=== PATIENT | male | born 1950 | race Caucasian/White ===

== ENCOUNTER 2019-05-09 08:49 | Outpatient (CLI) | payer OTHER, SELFPAY ==
[2019-05-09 09:23] LABS: Basophils # 0.1 10^3/uL (0.0-0.1); Basophils % 0.5 %; Eosinophils # 0.3 10^3/uL (0.0-0.8); Hematocrit 47.7 % (42.0-52.0); Hemoglobin 15.5 g/dL (11.7-16.6); Lymphocytes # 1.4 10^3/uL (0.8-4.8); Lymphocytes % 13.8 %; Mean Corpuscular HGB Conc 32.5 g/dL (30.0-36.0); Mean Corpuscular Hemoglobin 30.5 pg (28.0-34.0); Mean Corpuscular Volume 93.7 fL (80-94); Mean Platelet Volume 9.3 fL (7.4-10.4); Monocytes # 0.7 10^3/uL (0.2-0.9); Monocytes % 6.7 %; Neutrophils % 70.4 %; Nucleated Red Blood Cells % 0 %; Platelet Count 897 10^3/cmm (130-400); Red Blood Count 5.09 10^6/uL (4.1-5.3); Red Cell Distribution Width 14.6 % (12.1-15.1); White Blood Count 9.9 10^3/uL (4.0-10.0)
[2019-05-09 09:56] LABS: Slide Review Slide Review Perform
[2019-05-09 09:58] LABS: Absolute Eosinophils 0.2 10^3/cmm (0.0-0.7); Absolute Segmented Neutrophil 5.8 10/cmm (1.6-7.1); Band Neutrophils Absolute 1.5 10^3/cmm (0.0-1.2); Eosinophils 3 %; Giant Platelets Trace; Lymphocytes 11 %; Monocytes Absolute 0.9 10^3/cmm (0.1-0.6); Platelet Estimate Increased (Normal); Segmented Neutrophils 59 %; Total Cells Counted 100 (0-100)
[2019-05-09 14:01] LABS: Ferritin 181 ng/mL (30-400); Iron 112 ug/dL (59-158); Percent Saturation 38.7 % (20-50); Total Iron Binding Capacity 289 mg/dL; Unsaturated Iron Binding 177 ug/dL (112-347)
[2019-05-09 14:27] LABS: Erythrocyte Sedimentation Rate 12 mm/hr (0-10)
[2019-05-09 14:56] LABS: LAB Peripheral Smear Sent for Review
[2019-05-17 19:02] LABS: JAK2 V617 Mutation DETECTED (NOT DETECTED)
== END 2019-05-09 08:50 | disposition home or self-care (01) ==
LOC: ONCMED 09:02
PROVIDERS: Family Provider Family Medicine; PCP Family Medicine; Referring Provider Family Medicine; Visit Provider Internal Medicine Hematology & Oncology
DX: D47.3 Essential (hemorrhagic) thrombocythemia (principal); G47.33 Obstructive sleep apnea (adult) (pediatric); E78.5 Hyperlipidemia, unspecified; G89.29 Other chronic pain; M54.2 Cervicalgia; M54.9 Dorsalgia, unspecified; I71.4 Abdominal aortic aneurysm, without rupture; J43.9 Emphysema, unspecified; Z79.51 Long term (current) use of inhaled steroids
CPT/HCPCS: 36415; 80500; 82728; 83540; 83550; 85007; 85025; 85651; 99204

== ENCOUNTER 2019-05-23 08:13 | Outpatient (CLI) | payer OTHER, SELFPAY ==
--- NOTE | 2019-05-23 08:23 | US_ITS ---
WS: [id number] Abdomen ultrasound, 05/23/2019 Clinical Data: THROMBOCYTOPENIA Comparison: None. Findings: The pancreas shows no cyst, pseudocyst or evidence of pancreatitis. The liver shows no cysts, masses or dilated intrahepatic ducts. The liver is enlarged measuring 19.61 cm. The gallbladder has no stones or sludge. The wall measures 0.2 mm with no pericholecystic fluid. The common bile duct is 0.4 mm and no intraductal abnormalities are noted. The right kidney is 4.18 x 4.99 x 9.6 cm. No cysts, masses or hydronephrosis is seen. The left kidney is 14.20 x 4.93 x 10.42 cm. No cysts, masses or hydronephrosis is seen. The abdominal aorta is not dilated and the inferior vena cava has normal flow. No vascular abnormalit ies are seen. The spleen measures 4.22 x 5.18 x 11.81 cm and there are no intrasplenic masses are capsular abnormal ities. US/US abdomen complete* [id number] Impression: Mild hepatomegaly.
[2019-05-23 09:29] LABS: Basophils % 0.5 %; Eosinophils # 0.3 10^3/uL (0.0-0.8); Eosinophils % 4.1 %; Hematocrit 46.6 % (42.0-52.0); Hemoglobin 15.2 g/dL (11.7-16.6); Lymphocytes # 1.3 10^3/uL (0.8-4.8); Lymphocytes % 17.2 %; Mean Corpuscular HGB Conc 32.6 g/dL (30.0-36.0); Mean Corpuscular Hemoglobin 30.5 pg (28.0-34.0); Mean Corpuscular Volume 93.6 fL (80-94); Mean Platelet Volume 9.4 fL (7.4-10.4); Monocytes # 0.5 10^3/uL (0.2-0.9); Monocytes % 6.6 %; Neutrophils % 66.5 %; Nucleated Red Blood Cells % 0 %; Platelet Count 934 10^3/cmm (130-400); Red Blood Count 4.98 10^6/uL (4.1-5.3); Red Cell Distribution Width 14.6 % (12.1-15.1); White Blood Count 7.5 10^3/uL (4.0-10.0)
[2019-05-23 09:58] LABS: Alanine Aminotransferase 20 U/L (0-41); Alkaline Phosphatase 126 IU/L (40-130); Anion Gap 14.1 (5-19); Aspartate Amino Transferase 24 U/L (0-40); Blood Urea Nitrogen 13 mg/dL (8-23); Carbon Dioxide 29 mmol/L (22-29); Chloride 101 mmol/L (98-107); Globulin 3.9 g/dL (1.3-4.6); Glomerular Filtration Rate 73.9 mL/min (90-130); Glucose 92 mg/dL (65-115); Potassium 4.1 mmol/L (3.5-5.1); Sodium 140 mmol/L (136-145); Total Bilirubin 0.7 mg/dL (0.15-1.2); Total Protein 7.9 g/dL (6.6-8.7)
== END 2019-05-23 08:14 | disposition home or self-care (01) ==
LOC: ONCMED 08:18
PROVIDERS: Family Provider Family Medicine; PCP Family Medicine; Visit Provider Internal Medicine Hematology & Oncology
DX: D69.6 Thrombocytopenia, unspecified (principal); R16.0 Hepatomegaly, not elsewhere classified
CPT/HCPCS: 36415; 76700; 80053; 85025

== ENCOUNTER 2019-05-25 14:52 | Outpatient (CLI) | payer OTHER, SELFPAY ==
--- NOTE | 2019-05-30 17:09 | ONC FU_ITS ---
Dr. Snow follow up note Patient: Brennon Melendez Unit #: [id number]: [id number] Dicatated By: Wong Snow M.D.Date of Visit:May 25, 2019 Onc Med Follow-up/Prog Note History of Present Illness: Mr. Brennon Melendez, is a 68-year-old gentleman with long-standing history of thrombocytosis, as per patient initially he was told about high. Count in July 2018 but his platelet count has been high for a while prior to that. But recently his physician got concerned and other than that no history of headaches or blurred vision or double vision no history of chest pain or shortness of breath no history of night sweats fever chills no history of peripheral lymphadenopathy. No history of abdominal fullness. No history of abnormal bleeding. No history of smoking but history of COPD, sleep apnea, hyperlipidemia, chronic neck and back pain.no history of DVTs or pulmonary embolism or arterial thrombosis. His labs checked on 04/19/2019 showed white blood count 11.9, hemoglobin 15.4 crit 46.6 platelets 865,[address] scan of chest done on 04/27/2019 showed few very small densities in both lungs, atherosclerotic changes involving thoracic aorta with mild aneurysm of ascending aorta which has diameter 4.3 cm. Or myelomatous disease. A few mediastinal lymph nodes contain calcification. Chest x-ray done on 04/06/2019 showed hyperinflated lungs with emphysema. Ultrasound abdomen done on 05/23/2019 showedSpleen size 4.2 x 5.1 x 11.8 cm, liver is enlarged measuring 19.6 cm Clau 2 mutation, detected Started on hydroxyurea 500 mg by mouth daily and aspirin 81 mg by mouth daily on 05/23/2019, for essential thrombocytosis Came for follow-up, denies any specific complaints, no nausea vomiting no fever no chills no headaches no blurred vision or double vision. No abdominal fullness. Medications: Albuterol Sulfate 1 ((2.5 mg/3ml) 0.083%) Nebulization solution Inhalation daily, Albuterol Sulfate 1 Puff(s) (of 108 (90 base) mcg/act) Aerosol Powder, Breath Activated Inhalation daily, Aspirin 1 Tablet (of 81 mg) Oral daily, CBD 1 Capsule (of 5 mg) Oral daily, Cholecalciferol 1 Tablet (of 25 mcg ) Oral daily, Excedrin Extra Strength 2 Tablet (of 500 mg) Oral PRN, guaiFENesin 10 mL (of 100 mg/5mL) Syrup Oral PRN, Metamucil 1 Capsule Oral daily, QUEtiapine Fumarate 1 Tablet (of 100 mg) Oral daily, Symbicort 1 Puff(s) (of 80-4.5 mcg/act) Aerosol Inhalation daily Allergies: No Known Allergies. Review of Systems: Constitutional - Appetite is good and weight is stable. No fever, chills, hot flashes, or night sweats. Energy level is poor, ENMT - No sinus congestion/drainage. No mouth sores. No sore throat or difficulty swallowing, Hematologic/Lymphatic - No abnormal bruising or bleeding, Respiratory - No shortness of breath. No cough. No pleuritic pain or hemoptysis, Cardiovascular - No angina pain. No palpitations, Gastrointestinal - No nausea or vomiting. No heartburn or acid reflux. No diarrhea or constipation. No blood in the stool or black stools, Genitourinary (M) - No dysuria or hematuria. No urinary frequency. No urgency or incontinence, Musculoskeletal - No joint or bone pain, Neurologic - No headache or dizziness. No numbness/paresthesias or other focal neurologic symptoms, Psychiatric - No anxiety or depression. No insomnia. Vital Signs: Performed on May 25, 2019 15:37 Height - 71.00 in Weight - 192.0 lbs (HIGH) BSA - 2.07 sq.m BMI - 26.78 Temperature - 97.9 F (LOW) Pulse - 67 /min Respiration - 18 /min BP - 111/69 mm(hg) O2 Sat - 98 % Pain - 0 Performance Status: 0 - Fully active, able to carry on all predisease activities without restrictions. (ECOG) Physical Examination: ENMT - No oral exudates, ulcers, masses, thrush or mucositis. Oropharynx clear. Tongue normal, Respiratory - Lungs are clear to auscultation without rhonchi or wheezing, Cardiovascular - Regular rate and rhythm of heart, Abdomen - Non-tender, non-distended, . Good bowel sounds. No guarding or rebound tenderness. No pulsatile masses, Extremities - no edema. Lab/Imaging: Test performed on May 23, 2019 09:10 Sodium 140 mmol/L Potassium 4.1 mmol/L Chloride 101 mmol/L CO2 29 mmol/L Anion Gap 14.1 BUN 13 mg/dL Creatinine 1.0 mg/dL Cr Clearance (Est) 84.0500 mL/min eGFR 73.9 mL/min Glucose 92 mg/dL Calcium 10.0 mg/dL Protein, Total 7.9 g/dL Albumin 4.0 g/dL Globulin 3.9 g/dL Bilirubin, Total 0.7 mg/dL ALT (SGPT) 20 U/L AST (SGOT) 24 U/L Alkaline Phosphatase 126 IU/L WBC 7.5 10 3/uL RBC 4.98 10 6/uL HGB 15.2 g/dL HCT 46.6 % MCV 93.6 fL MCH 30.5 pg MCHC 32.6 g/dL RDW 14.6 % Platelet Count 934 10 3/cmm MPV 9.4 fL Neutrophils 5.0 10 3/uL Lymphocytes 1.3 10 3/uL Monocytes 0.5 10 3/uL Eosinophils 0.3 10 3/uL Basophils 0.0 10 3/uL Neutrophil % 66.5 % Lymphocyte % 17.2 % Monocyte % 6.6 % Eosinophil % 4.1 % Basophils % 0.5 % Test performed on May 09, 2019 09:15 Ferritin 181 ng/mL ESR (Sed Rate) 12 mm/hr Manual Bands % 15.0 % Manual Lymphs % 11 % Manual Monos % 9.0 % Metamyelocytes % 1.0 % Myelocytes % 2.0 % CBC Slide Review Slide Review Perform Manual Bands Abs 1.5 10 3/cmm Manual Monocytes Abs 0.9 10 3/cmm Manual Eosinophils Abs 0.2 10 3/cmm Impression: Essential thrombocytosis ,JAK2 mutation positive confirmed on 05/09/2019 Started on hydroxyurea/baby aspirin on 05/23/2019 COPD/emphysema, no history of smoking Ascending Aortic aneurysm. Plan: Discussed with patient regarding his labs white blood count 7.5 hemoglobin 15.2 crit 46.4 platelets 934,000 Clinically, patient is doing well with no signs symptom due to severe thrombocytosis. Now confirmed due to myeloproliferative disorder e.g. essential thrombocytosis with JAK2 mutation positive. At this point we will consider starting him on cytoreduction therapy with hydroxyurea 500 mg by mouth daily along with aspirin 81 mg by mouth daily patient was advised to maintain good hydration and then he will return to clinic in 1 week with CBC and based on that we will make adjustment in his hydroxyurea dose. And plan is to keep his platelet count between 100,000- 400,000 while maintaining white blood count and hemoglobin in in normal range. All the side effect possible benefits associated with hydroxyurea were discussed in detail further teaching will be done by chemotherapy nurse Signed By: Wong Snow M.D. <<Signature on File>>
== END 2019-05-25 14:53 | disposition home or self-care (01) ==
LOC: ONCMED 14:54
PROVIDERS: Family Provider Family Medicine; PCP Family Medicine; Visit Provider Internal Medicine Hematology & Oncology
DX: D47.3 Essential (hemorrhagic) thrombocythemia (principal); G47.33 Obstructive sleep apnea (adult) (pediatric); E78.5 Hyperlipidemia, unspecified; G89.29 Other chronic pain; M54.2 Cervicalgia; M54.9 Dorsalgia, unspecified; I71.4 Abdominal aortic aneurysm, without rupture; I25.10 Atherosclerotic heart disease of native coronary artery without angina pectoris; J43.9 Emphysema, unspecified; Z79.899 Other long term (current) drug therapy; Z79.51 Long term (current) use of inhaled steroids
CPT/HCPCS: 99214

== ENCOUNTER 2019-06-07 05:39 | Outpatient (RCR) | payer OTHER, SELFPAY ==
[2019-06-06 12:53] LABS: Basophils % 0.6 %; Eosinophils # 0.3 10^3/uL (0.0-0.8); Eosinophils % 4.4 %; Hemoglobin 14.9 g/dL (11.7-16.6); Lymphocytes # 1.6 10^3/uL (0.8-4.8); Mean Corpuscular HGB Conc 31.7 g/dL (30.0-36.0); Mean Corpuscular Hemoglobin 31.4 pg (28.0-34.0); Mean Corpuscular Volume 98.9 fL (80-94); Mean Platelet Volume 9.5 fL (7.4-10.4); Monocytes # 0.5 10^3/uL (0.2-0.9); Monocytes % 7.8 %; Neutrophils # 3.8 10^3/uL (1.8-7.7); Neutrophils % 57.9 %; Nucleated Red Blood Cells % 0 %; Platelet Count 901 10^3/cmm (130-400); Red Blood Count 4.75 10^6/uL (4.1-5.3); Red Cell Distribution Width 14.8 % (12.1-15.1); White Blood Count 6.6 10^3/uL (4.0-10.0)
[2019-06-06 13:05] LABS: Alanine Aminotransferase 40 U/L (0-41); Albumin Level 3.8 g/dL (3.5-5.2); Alkaline Phosphatase 137 IU/L (40-130); Anion Gap 14.3 (5-19); Aspartate Amino Transferase 38 U/L (0-40); Blood Urea Nitrogen 15 mg/dL (8-23); Calcium 9.5 mg/dL (8.5-10.5); Carbon Dioxide 28 mmol/L (22-29); Chloride 101 mmol/L (98-107); Globulin 3.9 g/dL (1.3-4.6); Glomerular Filtration Rate 73.9 mL/min (90-130); Glucose 80 mg/dL (65-115); Potassium 4.3 mmol/L (3.5-5.1); Sodium 139 mmol/L (136-145); Total Bilirubin 0.5 mg/dL (0.15-1.2); Total Protein 7.7 g/dL (6.6-8.7)
--- NOTE | 2019-06-07 09:05 | ONC FU_ITS ---
Dr. Snow follow up note Patient: Brennon Melendez Unit #: [id number]: [id number] Dicatated By: Wong Snow M.D.Date of Visit:Jun 07, 2019 Onc Med Follow-up/Prog Note History of Present Illness: Mr. Brennon Melendez, is a 68-year-old gentleman with long-standing history of thrombocytosis, as per patient initially he was told about high. Count in July 2018 but his platelet count has been high for a while prior to that. But recently his physician got concerned and other than that no history of headaches or blurred vision or double vision no history of chest pain or shortness of breath no history of night sweats fever chills no history of peripheral lymphadenopathy. No history of abdominal fullness. No history of abnormal bleeding. No history of smoking but history of COPD, sleep apnea, hyperlipidemia, chronic neck and back pain. His labs checked on 04/19/2019 showed white blood count 11.9, hemoglobin 15.4 crit 46.6 platelets 865,[address] scan of chest done on 04/27/2019 showed few very small densities in both lungs, atherosclerotic changes involving thoracic aorta with mild aneurysm of ascending aorta which has diameter 4.3 cm. Or myelomatous disease. A few mediastinal lymph nodes contain calcification. Chest x-ray done on 04/06/2019 showed hyperinflated lungs with emphysema. Ultrasound abdomen done on 05/23/2019 showedSpleen size 4.2 x 5.1 x 11.8 cm, liver is enlarged measuring 19.6 cm Clau 2 mutation, detected Started on hydroxyurea 500 mg by mouth daily and aspirin 81 mg by mouth daily on 05/23/2019, for essential thrombocytosis Came for follow-up, denies any specific complaints, no headaches no blurred vision or double vision, no nausea or vomiting, no abdominal fullness, tolerating hydroxyurea well. Medications: Albuterol Sulfate 1 ((2.5 mg/3ml) 0.083%) Nebulization solution Inhalation daily, Albuterol Sulfate 1 Puff(s) (of 108 (90 base) mcg/act) Aerosol Powder, Breath Activated Inhalation daily, Aspirin 1 Tablet (of 81 mg) Oral daily, CBD 1 Capsule (of 5 mg) Oral daily, Cholecalciferol 1 Tablet (of 25 mcg ) Oral daily, guaiFENesin 10 mL (of 100 mg/5mL) Syrup Oral PRN, Hydroxyurea 1 Capsule (of 500 mg) Oral daily, Metamucil 1 Capsule Oral daily, QUEtiapine Fumarate 1 Tablet (of 100 mg) Oral daily, Symbicort 1 Puff(s) (of 80-4.5 mcg/act) Aerosol Inhalation daily Allergies: No Known Allergies. Review of Systems: Constitutional - Appetite is good and weight is stable. No fever, chills, hot flashes, or night sweats. Energy level is poor, ENMT - No sinus congestion/drainage. No mouth sores. No sore throat or difficulty swallowing, Hematologic/Lymphatic - No abnormal bruising or bleeding, Respiratory - No shortness of breath. No cough. No pleuritic pain or hemoptysis, Cardiovascular - No angina pain. No palpitations, Gastrointestinal - No nausea or vomiting. No heartburn or acid reflux. No diarrhea or constipation. No blood in the stool or black stools, Genitourinary (M) - No dysuria or hematuria. No urinary frequency. No urgency or incontinence, Musculoskeletal - No joint or bone pain, Neurologic - No headache or dizziness. No numbness/paresthesias or other focal neurologic symptoms, Psychiatric - No anxiety or depression. No insomnia. Vital Signs: Performed on Jun 07, 2019 08:12 Height - 71.00 in Weight - 194.2 lbs (HIGH) BSA - 2.08 sq.m BMI - 27.09 Temperature - 97.4 F (LOW) Pulse - 63 /min Respiration - 18 /min BP - 117/72 mm(hg) O2 Sat - 98 % Pain - 0 Performance Status: 0 - Fully active, able to carry on all predisease activities without restrictions. (ECOG) Physical Examination: ENMT - No oral exudates, ulcers, masses, thrush or mucositis. Oropharynx clear. Tongue normal, Respiratory - Lungs are clear to auscultation without rhonchi or wheezing, Cardiovascular - Regular rate and rhythm of heart, Abdomen - Non-tender, non-distended, Good bowel sounds. No guarding or rebound tenderness. No pulsatile masses, Extremities - no edema. Lab/Imaging: Test performed on May 23, 2019 09:10 Sodium 140 mmol/L Potassium 4.1 mmol/L Chloride 101 mmol/L CO2 29 mmol/L Anion Gap 14.1 BUN 13 mg/dL Creatinine 1.0 mg/dL Cr Clearance (Est) 84.0500 mL/min eGFR 73.9 mL/min Glucose 92 mg/dL Calcium 10.0 mg/dL Protein, Total 7.9 g/dL Albumin 4.0 g/dL Globulin 3.9 g/dL Bilirubin, Total 0.7 mg/dL ALT (SGPT) 20 U/L AST (SGOT) 24 U/L Alkaline Phosphatase 126 IU/L WBC 7.5 10 3/uL RBC 4.98 10 6/uL HGB 15.2 g/dL HCT 46.6 % MCV 93.6 fL MCH 30.5 pg MCHC 32.6 g/dL RDW 14.6 % Platelet Count 934 10 3/cmm MPV 9.4 fL Neutrophils 5.0 10 3/uL Lymphocytes 1.3 10 3/uL Monocytes 0.5 10 3/uL Eosinophils 0.3 10 3/uL Basophils 0.0 10 3/uL Neutrophil % 66.5 % Lymphocyte % 17.2 % Monocyte % 6.6 % Eosinophil % 4.1 % Basophils % 0.5 % Test performed on May 09, 2019 09:15 Ferritin 181 ng/mL ESR (Sed Rate) 12 mm/hr Manual Bands % 15.0 % Manual Lymphs % 11 % Manual Monos % 9.0 % Metamyelocytes % 1.0 % Myelocytes % 2.0 % CBC Slide Review Slide Review Perform Manual Bands Abs 1.5 10 3/cmm Manual Monocytes Abs 0.9 10 3/cmm Manual Eosinophils Abs 0.2 10 3/cmm Impression: Essential thrombocytosis ,JAK2 mutation positive confirmed on 05/09/2019 Started on hydroxyurea/baby aspirin on 05/23/2019 COPD/emphysema, no history of smoking Ascending Aortic aneurysm. Plan: Discussed with patient regarding his labs white blood count 6.6 hemoglobin 14.9 crit 47 platelets 901,000 compared to 934,000 on 05/23/2019 Clinically, patient is doing well, tolerating daily hydroxyurea well, his follow-up CBC showed some improvement in his platelets count, at this point we'll increase his hydroxyurea dose to thousand milligrams on Wednesday, Wednesday and Wednesday and he will continue to 500 mg by mouth daily on remaining days of week and then he will return to clinic in 2 weeks with CBC. Signed By: Wong Snow M.D. <<Signature on File>>
== END 2019-06-10 23:59 | disposition home or self-care (01) ==
LOC: ONCMED 05:39
PROVIDERS: Family Provider Family Medicine; PCP Family Medicine; Visit Provider Internal Medicine Hematology & Oncology
DX: D47.3 Essential (hemorrhagic) thrombocythemia (principal); G47.33 Obstructive sleep apnea (adult) (pediatric); E78.5 Hyperlipidemia, unspecified; G89.29 Other chronic pain; M54.2 Cervicalgia; M54.9 Dorsalgia, unspecified; J43.9 Emphysema, unspecified; I71.4 Abdominal aortic aneurysm, without rupture; Z79.899 Other long term (current) drug therapy; Z79.82 Long term (current) use of aspirin; G31.83 Neurocognitive disorder with Lewy bodies; F02.80 Dementia in other diseases classified elsewhere, unspecified severity, without behavioral disturbance, psychotic disturbance, mood disturbance, and anxiety
CPT/HCPCS: 36415; 80053; 85025; 99213; 99214

== ENCOUNTER 2019-06-23 05:42 | Outpatient (RCR) | payer OTHER, SELFPAY ==
[2019-06-21 17:12] LABS: Basophils % 0.3 %; Eosinophils # 0.2 10^3/uL (0.0-0.8); Eosinophils % 3.2 %; Hematocrit 46.1 % (42.0-52.0); Hemoglobin 14.8 g/dL (11.7-16.6); Lymphocytes # 1.3 10^3/uL (0.8-4.8); Lymphocytes % 18.8 %; Mean Corpuscular HGB Conc 32.1 g/dL (30.0-36.0); Mean Corpuscular Volume 99.6 fL (80-94); Mean Platelet Volume 9.6 fL (7.4-10.4); Monocytes # 0.5 10^3/uL (0.2-0.9); Monocytes % 7.6 %; Neutrophils # 4.9 10^3/uL (1.8-7.7); Neutrophils % 68.5 %; Nucleated Red Blood Cells % 0 %; Platelet Count 813 10^3/cmm (130-400); Red Blood Count 4.63 10^6/uL (4.1-5.3); White Blood Count 7.1 10^3/uL (4.0-10.0)
--- NOTE | 2019-06-23 11:28 | ONC FU_ITS ---
Dr. Snow follow up note Patient: Brennon Melendez Unit #: [id number]: 1950 Dicatated By: Wong Snow M.D.Date of Visit:Jun 23, 2019 Onc Med Follow-up/Prog Note History of Present Illness: Mr. Brennon Melendez, is a 68-year-old gentleman with long-standing history of thrombocytosis, as per patient initially he was told about high. Count in July 2018 but his platelet count has been high for a while prior to that. But recently his physician got concerned and other than that no history of headaches or blurred vision or double vision no history of chest pain or shortness of breath no history of night sweats fever chills no history of peripheral lymphadenopathy. No history of abdominal fullness. No history of abnormal bleeding. No history of smoking but history of COPD, sleep apnea, hyperlipidemia, chronic neck and back pain. His labs checked on 04/19/2019 showed white blood count 11.9, hemoglobin 15.4 crit 46.6 platelets 865,[address] scan of chest done on 04/27/2019 showed few very small densities in both lungs, atherosclerotic changes involving thoracic aorta with mild aneurysm of ascending aorta which has diameter 4.3 cm. Or myelomatous disease. A few mediastinal lymph nodes contain calcification. Chest x-ray done on 04/06/2019 showed hyperinflated lungs with emphysema. Ultrasound abdomen done on 05/23/2019 showedSpleen size 4.2 x 5.1 x 11.8 cm, liver is enlarged measuring 19.6 cm Clau 2 mutation, detected Started on hydroxyurea 500 mg by mouth daily and aspirin 81 mg by mouth daily on 05/23/2019, for essential thrombocytosis and dose was increased to 1000 mg daily on 06/23/2019 Came for follow-up, denies any specific complaints, no nausea vomiting no fever no chills no diarrhea constipation, tolerating hydroxyurea well no headaches, Medications: Albuterol Sulfate 1 ((2.5 mg/3ml) 0.083%) Nebulization solution Inhalation daily, Albuterol Sulfate 1 Puff(s) (of 108 (90 base) mcg/act) Aerosol Powder, Breath Activated Inhalation daily, Aspirin 1 Tablet (of 81 mg) Oral daily, CBD 1 Capsule (of 5 mg) Oral daily, Cholecalciferol 1 Tablet (of 25 mcg ) Oral daily, guaiFENesin 10 mL (of 100 mg/5mL) Syrup Oral PRN, Hydroxyurea 1 Capsule (of 500 mg) Oral daily, Metamucil 1 Capsule Oral daily, QUEtiapine Fumarate 1 Tablet (of 100 mg) Oral daily, Symbicort 1 Puff(s) (of 80-4.5 mcg/act) Aerosol Inhalation daily Allergies: No Known Allergies. Review of Systems: Constitutional - Appetite is good and weight is stable. No fever, chills, hot flashes, or night sweats. Energy level is fair today, ENMT - No sinus congestion/drainage. No mouth sores. No sore throat or difficulty swallowing, Hematologic/Lymphatic - No abnormal bruising or bleeding, Respiratory - No shortness of breath. No cough. No pleuritic pain or hemoptysis, Cardiovascular - No angina pain. No palpitations, Gastrointestinal - No nausea or vomiting. No heartburn or acid reflux. No diarrhea or constipation. No blood in the stool or black stools, Genitourinary (M) - No dysuria or hematuria. No urinary frequency. No urgency or incontinence, Musculoskeletal - No joint or bone pain, Neurologic - No headache or dizziness. No numbness/paresthesias or other focal neurologic symptoms, Psychiatric - No anxiety or depression. No insomnia. Vital Signs: Performed on Jun 23, 2019 08:24 Height - 71.00 in Weight - 193.2 lbs (LOW) BSA - 2.08 sq.m BMI - 26.95 Temperature - 97.8 F (LOW) Pulse - 60 /min Respiration - 18 /min BP - 103/62 mm(hg) O2 Sat - 98 % Pain - 0 Performance Status: 0 - Fully active, able to carry on all predisease activities without restrictions. (ECOG) Physical Examination: ENMT - No oral exudates, ulcers, masses, thrush or mucositis. Oropharynx clear. Tongue normal, Respiratory - Lungs are clear to auscultation without rhonchi or wheezing, Cardiovascular - Regular rate and rhythm of heart, Abdomen - Non-tender, non-distended, Good bowel sounds. No guarding or rebound tenderness. No pulsatile masses, Extremities - no edema. Lab/Imaging: Test performed on Jun 06, 2019 07:05 Sodium 139 mmol/L Potassium 4.3 mmol/L Chloride 101 mmol/L CO2 28 mmol/L Anion Gap 14.3 BUN 15 mg/dL Creatinine 1.0 mg/dL Cr Clearance (Est) 85.64 mL/min eGFR 73.9 mL/min Glucose 80 mg/dL Calcium 9.5 mg/dL Protein, Total 7.7 g/dL Albumin 3.8 g/dL Globulin 3.9 g/dL Bilirubin, Total 0.5 mg/dL ALT (SGPT) 40 U/L AST (SGOT) 38 U/L Alkaline Phosphatase 137 IU/L WBC 6.6 10 3/uL RBC 4.75 10 6/uL HGB 14.9 g/dL HCT 47.0 % MCV 98.9 fL MCH 31.4 pg MCHC 31.7 g/dL RDW 14.8 % Platelet Count 901 10 3/cmm MPV 9.5 fL Neutrophils 3.8 10 3/uL Lymphocytes 1.6 10 3/uL Monocytes 0.5 10 3/uL Eosinophils 0.3 10 3/uL Basophils 0.0 10 3/uL Neutrophil % 57.9 % Lymphocyte % 25.0 % Monocyte % 7.8 % Eosinophil % 4.4 % Basophils % 0.6 % Test performed on May 09, 2019 09:15 Ferritin 181 ng/mL ESR (Sed Rate) 12 mm/hr Manual Bands % 15.0 % Manual Lymphs % 11 % Manual Monos % 9.0 % Metamyelocytes % 1.0 % Myelocytes % 2.0 % CBC Slide Review Slide Review Perform Manual Bands Abs 1.5 10 3/cmm Manual Monocytes Abs 0.9 10 3/cmm Manual Eosinophils Abs 0.2 10 3/cmm Impression: Essential thrombocytosis ,JAK2 mutation positive confirmed on 05/09/2019 Started on hydroxyurea/baby aspirin on 05/23/2019 COPD/emphysema, no history of smoking Ascending Aortic aneurysm. Plan: Discussed with patient regarding his labs white blood count 7.1 hemoglobin 14.8 crit 46.1 platelets 813,000 compared to 901,000 on 06/06/2019 Clinically, patient is doing well, tolerating hydroxyurea thousand milligrams alternating with 500 mg, well, follow-up lab showed further improvement in his thrombocytosis while maintaining his white blood count hemoglobin normal range At this point we will increase his hydroxyurea dose to thousand milligrams daily from thousand milligrams alternating with 500 mg. And return to clinic in 3 weeks with CBC and then based on that we'll make adjustment in his hydroxyurea dose if needed. Signed By: Wong Snow M.D. <<Signature on File>>
== END 2019-07-11 23:59 | disposition home or self-care (01) ==
LOC: ONCMED 05:42
PROVIDERS: Family Provider Family Medicine; PCP Family Medicine; Visit Provider Internal Medicine Hematology & Oncology
DX: D47.3 Essential (hemorrhagic) thrombocythemia (principal); G47.33 Obstructive sleep apnea (adult) (pediatric); E78.5 Hyperlipidemia, unspecified; G89.29 Other chronic pain; M54.2 Cervicalgia; M54.9 Dorsalgia, unspecified; I25.10 Atherosclerotic heart disease of native coronary artery without angina pectoris; I71.4 Abdominal aortic aneurysm, without rupture; J43.9 Emphysema, unspecified; R16.0 Hepatomegaly, not elsewhere classified; Z79.899 Other long term (current) drug therapy; Z79.82 Long term (current) use of aspirin; Z79.51 Long term (current) use of inhaled steroids
CPT/HCPCS: 85025; 99214

== ENCOUNTER 2019-07-31 06:44 | Outpatient (RCR) | payer OTHER, SELFPAY ==
[2019-07-14 12:16] LABS: Basophils % 0.4 %; Eosinophils # 0.1 10^3/uL (0.0-0.8); Eosinophils % 2.4 %; Lymphocytes # 1.1 10^3/uL (0.8-4.8); Lymphocytes % 20.9 %; Mean Corpuscular HGB Conc 31.7 g/dL (30.0-36.0); Mean Corpuscular Hemoglobin 31.8 pg (28.0-34.0); Mean Corpuscular Volume 100.2 fL (80-94); Mean Platelet Volume 9.7 fL (7.4-10.4); Monocytes # 0.5 10^3/uL (0.2-0.9); Monocytes % 9.8 %; Neutrophils # 3.3 10^3/uL (1.8-7.7); Neutrophils % 65.3 %; Nucleated Red Blood Cells % 0 %; Platelet Count 440 10^3/cmm (130-400); Red Blood Count 4.09 10^6/uL (4.1-5.3); Red Cell Distribution Width 17.9 % (12.1-15.1)
--- NOTE | 2019-07-17 14:27 | ONC FU_ITS ---
Dr. Snow follow up note Patient: Brennon Melendez Unit #: [id number]: 1950 Dicatated By: Wong Snow M.D.Date of Visit:Jul 17, 2019 Onc Med Follow-up/Prog Note History of Present Illness: Mr. Brennon Melendez, is a 68-year-old gentleman with long-standing history of thrombocytosis, as per patient initially he was told about high. Count in July 2018 but his platelet count has been high for a while prior to that. But recently his physician got concerned and other than that no history of headaches or blurred vision or double vision no history of chest pain or shortness of breath no history of night sweats fever chills no history of peripheral lymphadenopathy. No history of abdominal fullness. No history of abnormal bleeding. No history of smoking but history of COPD, sleep apnea, hyperlipidemia, chronic neck and back pain. His labs checked on 04/19/2019 showed white blood count 11.9, hemoglobin 15.4 crit 46.6 platelets 865,[address] scan of chest done on 04/27/2019 showed few very small densities in both lungs, atherosclerotic changes involving thoracic aorta with mild aneurysm of ascending aorta which has diameter 4.3 cm. Or myelomatous disease. A few mediastinal lymph nodes contain calcification. Chest x-ray done on 04/06/2019 showed hyperinflated lungs with emphysema. Ultrasound abdomen done on 05/23/2019 showedSpleen size 4.2 x 5.1 x 11.8 cm, liver is enlarged measuring 19.6 cm Clau 2 mutation, detected Started on hydroxyurea 500 mg by mouth daily and aspirin 81 mg by mouth daily on 05/23/2019, for essential thrombocytosis Evaluated via telemedicine, patient denies any fever chills denies any nausea or vomiting denies any headaches blurred vision or double vision denies any abdominal pain denies any jaundice tolerating hydroxyurea thousand milligrams by mouth daily well Medications: Albuterol Sulfate 1 ((2.5 mg/3ml) 0.083%) Nebulization solution Inhalation daily, Albuterol Sulfate 1 Puff(s) (of 108 (90 base) mcg/act) Aerosol Powder, Breath Activated Inhalation daily, Aspirin 1 Tablet (of 81 mg) Oral daily, CBD 1 Capsule (of 5 mg) Oral daily, Cholecalciferol 1 Tablet (of 25 mcg ) Oral daily, guaiFENesin 10 mL (of 100 mg/5mL) Syrup Oral PRN, Hydroxyurea 1 Capsule (of 500 mg) Oral daily, Metamucil 1 Capsule Oral daily, QUEtiapine Fumarate 1 Tablet (of 100 mg) Oral daily, Symbicort 1 Puff(s) (of 80-4.5 mcg/act) Aerosol Inhalation daily Allergies: No Known Allergies. Review of Systems: Constitutional - Appetite is good and weight is stable. No fever, chills, hot flashes. Positive for night sweats. Energy level is fair today, ENMT - Positive for sinus congestion, no drainage. No mouth sores. No sore throat or difficulty swallowing, Hematologic/Lymphatic - No abnormal bruising or bleeding, Respiratory - No shortness of breath. No cough. No pleuritic pain or hemoptysis, Cardiovascular - No angina pain. No palpitations, Gastrointestinal - No nausea or vomiting. No heartburn or acid reflux. Occasional diarrhea, no constipation. No blood in the stool or black stools, Genitourinary (M) - No dysuria or hematuria. No urinary frequency. Positive for urgency. No incontinence. Positive for Nocturia, Musculoskeletal - No joint or bone pain, Neurologic - No headache or dizziness. No numbness/paresthesias or other focal neurologic symptoms, Psychiatric - Positive for anxiety, no depression. No insomnia. Vital Signs: Vitals are not available for this patient. Performance Status: 0 - Fully active, able to carry on all predisease activities without restrictions. (ECOG) Physical Examination: ENMT - via telemetry medicine, denies mouth sores, or thrush, Respiratory - Lungs denies wheezing or shortness of breath, Cardiovascular - denies tachycardia, Abdomen - denies abdominal pain or fullness, Extremities - denies edema or rash. Lab/Imaging: Test performed on Jul 14, 2019 08:40 WBC 5.0 10 3/uL RBC 4.09 10 6/uL HGB 13.0 g/dL HCT 41.0 % MCV 100.2 fL MCH 31.8 pg MCHC 31.7 g/dL RDW 17.9 % Platelet Count 440 10 3/cmm MPV 9.7 fL Neutrophils 3.3 10 3/uL Lymphocytes 1.1 10 3/uL Monocytes 0.5 10 3/uL Eosinophils 0.1 10 3/uL Basophils 0.0 10 3/uL Neutrophil % 65.3 % Lymphocyte % 20.9 % Monocyte % 9.8 % Eosinophil % 2.4 % Basophils % 0.4 % Test performed on Jun 06, 2019 07:05 Sodium 139 mmol/L Potassium 4.3 mmol/L Chloride 101 mmol/L CO2 28 mmol/L Anion Gap 14.3 BUN 15 mg/dL Creatinine 1.0 mg/dL Cr Clearance (Est) 85.64 mL/min eGFR 73.9 mL/min Glucose 80 mg/dL Calcium 9.5 mg/dL Protein, Total 7.7 g/dL Albumin 3.8 g/dL Globulin 3.9 g/dL Bilirubin, Total 0.5 mg/dL ALT (SGPT) 40 U/L AST (SGOT) 38 U/L Alkaline Phosphatase 137 IU/L Test performed on May 09, 2019 09:15 Ferritin 181 ng/mL ESR (Sed Rate) 12 mm/hr Manual Bands % 15.0 % Manual Lymphs % 11 % Manual Monos % 9.0 % Metamyelocytes % 1.0 % Myelocytes % 2.0 % CBC Slide Review Slide Review Perform Manual Bands Abs 1.5 10 3/cmm Manual Monocytes Abs 0.9 10 3/cmm Manual Eosinophils Abs 0.2 10 3/cmm Impression: Essential thrombocytosis ,JAK2 mutation positive confirmed on 05/09/2019 Started on hydroxyurea/baby aspirin on 05/23/2019 COPD/emphysema, no history of smoking Ascending Aortic aneurysm. Plan: Discussed with patient and his via tele medicine, his white blood count 5k hemoglobin 13gm crit 41 platelets 440,000 compared to 813,000 on 06/21/2019 Clinically, patient is doing well, tolerating hydroxyurea thousand milligrams by mouth daily and his follow-up lab shows excellent response as far as essential thrombocytosis is concern now platelet count is 440,000 compared to 813,000 on 06/21/2019. At this point, we will reduce his hydroxyurea dose to thousand milligrams on Wednesday , Wednesday and Wednesday and 500 mg by mouth/day on remaining days , to prevent progressive leukopenia or anemia while controlling thrombocytosis.. And repeat CBC in 2 weeks and then discuss and adjust hydroxyurea dose if needed Signed By: Wong Snow M.D. <<Signature on File>>
[2019-07-28 11:35] LABS: Basophils % 0.2 %; Eosinophils # 0.2 10^3/uL (0.0-0.8); Eosinophils % 2.8 %; Hematocrit 42.6 % (42.0-52.0); Hemoglobin 13.8 g/dL (11.7-16.6); Lymphocytes # 1.4 10^3/uL (0.8-4.8); Lymphocytes % 22.4 %; Mean Corpuscular HGB Conc 32.4 g/dL (30.0-36.0); Mean Corpuscular Hemoglobin 32.5 pg (28.0-34.0); Mean Corpuscular Volume 100.2 fL (80-94); Mean Platelet Volume 9.6 fL (7.4-10.4); Monocytes # 0.5 10^3/uL (0.2-0.9); Neutrophils # 4.1 10^3/uL (1.8-7.7); Neutrophils % 65.2 %; Nucleated Red Blood Cells % 0 %; Platelet Count 354 10^3/cmm (130-400); Red Blood Count 4.25 10^6/uL (4.1-5.3); Red Cell Distribution Width 19.8 % (12.1-15.1); White Blood Count 6.3 10^3/uL (4.0-10.0)
--- NOTE | 2019-07-31 17:23 | ONC FU_ITS ---
Dr. Snow follow up note Patient: Brennon Melendez Unit #: [id number]: [id number] Dicatated By: Wong Snow M.D.Date of Visit:Jul 31, 2019 Telehealth Progress Note The patient has been informed that the visit may not be secure and acknowledged the information. I have explained the option of participating in a telephone or video visit during the [facility]-19 public health emergency to the patient. After being given an opportunity to ask questions about and discuss this type of visit, the patient verbally consented to proceeding with the telephone/video visit. the patient understands that this service replaces an office visit and they may be billed and /or responsible for any applicable copayments History of Present Illness: Mr. Brennon Melendez, is a 68-year-old gentleman with long-standing history of thrombocytosis, as per patient initially he was told about high. Count in July 2018 but his platelet count has been high for a while prior to that. But recently his physician got concerned and other than that no history of headaches or blurred vision or double vision no history of chest pain or shortness of breath no history of night sweats fever chills no history of peripheral lymphadenopathy. No history of abdominal fullness. No history of abnormal bleeding. No history of smoking but history of COPD, sleep apnea, hyperlipidemia, chronic neck and back pain. His labs checked on 04/19/2019 showed white blood count 11.9, hemoglobin 15.4 crit 46.6 platelets 865,[address] scan of chest done on 04/27/2019 showed few very small densities in both lungs, atherosclerotic changes involving thoracic aorta with mild aneurysm of ascending aorta which has diameter 4.3 cm. Or myelomatous disease. A few mediastinal lymph nodes contain calcification. Chest x-ray done on 04/06/2019 showed hyperinflated lungs with emphysema. Ultrasound abdomen done on 05/23/2019 showedSpleen size 4.2 x 5.1 x 11.8 cm, liver is enlarged measuring 19.6 cm Clau 2 mutation, detected Started on hydroxyurea 500 mg by mouth daily and aspirin 81 mg by mouth daily on 05/23/2019, for essential thrombocytosis Evaluated via telephone, patient is hard of hearing, so was communicating on his behalf, patient denies any fever chills denies any nausea or vomiting, no diarrhea constipation. No headaches or blurred vision. Tolerating hydroxyurea well Medications: Albuterol Sulfate 1 ((2.5 mg/3ml) 0.083%) Nebulization solution Inhalation daily, Albuterol Sulfate 1 Puff(s) (of 108 (90 base) mcg/act) Aerosol Powder, Breath Activated Inhalation daily, Aspirin 1 Tablet (of 81 mg) Oral daily, CBD 1 Capsule (of 5 mg) Oral daily, Cholecalciferol 1 Tablet (of 25 mcg ) Oral daily, guaiFENesin 10 mL (of 100 mg/5mL) Syrup Oral PRN, Hydroxyurea 1 Capsule (of 500 mg) Oral daily, Metamucil 1 Capsule Oral daily, QUEtiapine Fumarate 1 Tablet (of 100 mg) Oral daily, Symbicort 1 Puff(s) (of 80-4.5 mcg/act) Aerosol Inhalation daily Allergies: No Known Allergies. Review of Systems: Review of Systems is not available for this patient. Vital Signs: Vitals are not available for this patient. Performance Status: 0 - Fully active, able to carry on all predisease activities without restrictions. (ECOG) Physical Examination: ENMT - denies mouth sores, or thrush, Respiratory - denies any shortness of breath or wheezing, Cardiovascular - denies any tachycardia or palpitation, Abdomen - denies any abdominal pain or distention, Extremities - denies any edema or rash. Lab/Imaging: Test performed on Jul 28, 2019 07:30 WBC 6.3 10 3/uL RBC 4.25 10 6/uL HGB 13.8 g/dL HCT 42.6 % MCV 100.2 fL MCH 32.5 pg MCHC 32.4 g/dL RDW 19.8 % Platelet Count 354 10 3/cmm MPV 9.6 fL Neutrophils 4.1 10 3/uL Lymphocytes 1.4 10 3/uL Monocytes 0.5 10 3/uL Eosinophils 0.2 10 3/uL Basophils 0.0 10 3/uL Neutrophil % 65.2 % Lymphocyte % 22.4 % Monocyte % 8.0 % Eosinophil % 2.8 % Basophils % 0.2 % Test performed on Jun 06, 2019 07:05 Sodium 139 mmol/L Potassium 4.3 mmol/L Chloride 101 mmol/L CO2 28 mmol/L Anion Gap 14.3 BUN 15 mg/dL Creatinine 1.0 mg/dL Cr Clearance (Est) 85.64 mL/min eGFR 73.9 mL/min Glucose 80 mg/dL Calcium 9.5 mg/dL Protein, Total 7.7 g/dL Albumin 3.8 g/dL Globulin 3.9 g/dL Bilirubin, Total 0.5 mg/dL ALT (SGPT) 40 U/L AST (SGOT) 38 U/L Alkaline Phosphatase 137 IU/L Test performed on May 09, 2019 09:15 Ferritin 181 ng/mL ESR (Sed Rate) 12 mm/hr Manual Bands % 15.0 % Manual Lymphs % 11 % Manual Monos % 9.0 % Metamyelocytes % 1.0 % Myelocytes % 2.0 % CBC Slide Review Slide Review Perform Manual Bands Abs 1.5 10 3/cmm Manual Monocytes Abs 0.9 10 3/cmm Manual Eosinophils Abs 0.2 10 3/cmm Impression: Essential thrombocytosis ,JAK2 mutation positive confirmed on 05/09/2019 Started on hydroxyurea/baby aspirin on 05/23/2019 COPD/emphysema, no history of smoking Ascending Aortic aneurysm. Plan: discussed with patient and his via telephone, About his labs white blood count 6.3 hemoglobin 13.8 hematocrit 42.6 platelets 354,000 compared to 444,000 on 07/14/2019 Clinically, patient doing well, tolerating hydroxyurea 1000 mg on Wednesday and Wednesday and 500 mg on remaining days, well. His follow-up lab shows further improvement in his platelets count now in normal range, while hemoglobin and white blood count remained within normal range. At this point we will reduce his hydroxyurea dose to 500 mg by mouth daily and repeat CBC in one month and plan accordingly. Signed By: Wong Snow M.D. <<Signature on File>>
== END 2019-08-10 23:59 | disposition home or self-care (01) ==
LOC: ONCMED 06:44
PROVIDERS: Family Provider Family Medicine; PCP Family Medicine; Visit Provider Internal Medicine Hematology & Oncology
DX: D47.3 Essential (hemorrhagic) thrombocythemia (principal)
CPT/HCPCS: 36415; 85025

== ENCOUNTER 2019-08-04 08:14 | Outpatient (CLI) | payer OTHER, SELFPAY ==
--- NOTE | 2019-08-04 08:30 | CT_ITS ---
WS: [id number] CT CHEST WITHOUT INTRAVENOUS CONTRAST HISTORY: Pulmonary nodule TECHNIQUE: Contiguous 5 mm axial imaging performed on the thorax. Coronal and sagittal reformats are submitted. All CT scans at [facility] use at least one of these dose optimization techniq ues: automated exposure control; mA and/or kV adjustment per patient size (includes targeted exams wh ere dose is matched to clinical indication); or iterative reconstruction. CONTRAST: None DLP: 901.68 mGycm COMPARISON: 04/27/2019 Lungs and central airway: Moderate pulmonary hyperexpansion from emphysema. There are a few scattered areas of graft attenuation and nodules throughout both lungs. Groundglass attenuation most significa nt in the LEFT upper lobe. Noncalcified 3 mm nodule RIGHT lower lobe, image 36 of series 3 Pleura: Normal. No pleural effusion. Heart and pericardium: Normal size heart. No pericardial effusion. Mediastinum and roslyn: There were some very minimally prominent, indeterminate lymph nodes at the roslyn r regions on the prior examination. These lymph nodes are not as well visualized today without IV con trast. There are some benign subcentimeter mediastinal and hilar lymph nodes which are appreciated to day. Vessels: Mild ectasia and dilatation of aorta. Maximum diameter of the ascending aorta is 4.3 cm. Pul monary artery size is 3.4 cm in diameter. Chest wall and lower neck: No soft tissue masses. Upper abdomen: Visualized liver and gallbladder are normal. No adrenal mass. Osseous structures: Moderate increase in thoracic kyphosis centered in the mid thoracic spine. Mild a nterior compression deformities of T7 and T8. No osseous destruction. CT/CT chest wo con [id number] IMPRESSION: 1. Chronic emphysema and prior granulomatous disease. 2. No concerning pulmonary nodules are identified. 3 mm RIGHT lower lobe nodul e. No pneumonia. 3. Minimal scattered groundglass attenuation in the LEFT upper lobe. 4. Small mediastinal and hilar lymph nodes. Enlarging or subtle change in the lymph nodes would be difficult to evaluate without IV contrast.
== END 2019-08-04 08:15 | disposition home or self-care (01) ==
LOC: RADWPI 08:16
PROVIDERS: Family Provider Family Medicine; PCP Family Medicine; Visit Provider Internal Medicine Critical Care Medicine
DX: R91.1 Solitary pulmonary nodule (principal); J43.9 Emphysema, unspecified
CPT/HCPCS: 71250

== ENCOUNTER 2019-09-14 13:12 | Outpatient (CLI) | payer OTHER, SELFPAY ==
[2019-09-14 13:43] LABS: Basophils % 0.4 %; Eosinophils # 0.1 10^3/uL (0.0-0.8); Eosinophils % 1.9 %; Hematocrit 43.7 % (42.0-52.0); Hemoglobin 14.5 g/dL (11.7-16.6); Lymphocytes # 1.3 10^3/uL (0.8-4.8); Lymphocytes % 24.3 %; Mean Corpuscular HGB Conc 33.2 g/dL (30.0-36.0); Mean Corpuscular Hemoglobin 34.9 pg (28.0-34.0); Mean Platelet Volume 9.6 fL (7.4-10.4); Monocytes # 0.4 10^3/uL (0.2-0.9); Monocytes % 8.4 %; Neutrophils # 3.3 10^3/uL (1.8-7.7); Neutrophils % 62.7 %; Nucleated Red Blood Cells % 0 %; Platelet Count 396 10^3/cmm (130-400); Red Blood Count 4.16 10^6/uL (4.1-5.3); Red Cell Distribution Width 17.3 % (12.1-15.1); White Blood Count 5.2 10^3/uL (4.0-10.0)
--- NOTE | 2019-09-14 15:28 | ONC FU_ITS ---
Dr. Snow follow up note Patient: Brennon Melendez Unit #: [id number]: 1950 Dicatated By: Wong Snow M.D.Date of Visit:Sep 14, 2019 Onc Med Follow-up/Prog Note History of Present Illness: Mr. Brennon Melendez, is a 68-year-old gentleman with long-standing history of thrombocytosis, as per patient initially he was told about high. Count in July 2018 but his platelet count has been high for a while prior to that. But recently his physician got concerned and other than that no history of headaches or blurred vision or double vision no history of chest pain or shortness of breath no history of night sweats fever chills no history of peripheral lymphadenopathy. No history of abdominal fullness. No history of abnormal bleeding. No history of smoking but history of COPD, sleep apnea, hyperlipidemia, chronic neck and back pain. His labs checked on 04/19/2019 showed white blood count 11.9, hemoglobin 15.4 crit 46.6 platelets 865,[address] scan of chest done on 04/27/2019 showed few very small densities in both lungs, atherosclerotic changes involving thoracic aorta with mild aneurysm of ascending aorta which has diameter 4.3 cm. Or myelomatous disease. A few mediastinal lymph nodes contain calcification. Chest x-ray done on 04/06/2019 showed hyperinflated lungs with emphysema. Ultrasound abdomen done on 05/23/2019 showedSpleen size 4.2 x 5.1 x 11.8 cm, liver is enlarged measuring 19.6 cm Clau 2 mutation, detected Started on hydroxyurea 500 mg by mouth daily and aspirin 81 mg by mouth daily on 05/23/2019, for essential thrombocytosis Came for follow-up, denies any specific complaints, no fever or chills, no nausea or vomiting, no headaches, no blurred vision or double vision, no abdominal pain, tolerating daily hydroxyurea well. Medications: Albuterol Sulfate 1 ((2.5 mg/3ml) 0.083%) Nebulization solution Inhalation daily, Albuterol Sulfate 1 Puff(s) (of 108 (90 base) mcg/act) Aerosol Powder, Breath Activated Inhalation daily, Aspirin 1 Tablet (of 81 mg) Oral daily, CBD 1 Capsule (of 5 mg) Oral daily, Cholecalciferol 1 Tablet (of 25 mcg ) Oral daily, guaiFENesin 10 mL (of 100 mg/5mL) Syrup Oral PRN, Hydroxyurea 1 Capsule (of 500 mg) Oral daily, Metamucil 1 Capsule Oral daily, QUEtiapine Fumarate 1 Tablet (of 100 mg) Oral daily, Symbicort 1 Puff(s) (of 80-4.5 mcg/act) Aerosol Inhalation daily Allergies: No Known Allergies. Review of Systems: Constitutional - Appetite is good and weight is stable. No fever, chills, hot flashes. Positive for night sweats. Energy level is fair today, ENMT - Positive for sinus congestion, no drainage. No mouth sores. No sore throat or difficulty swallowing, Hematologic/Lymphatic - No abnormal bruising or bleeding, Respiratory - No shortness of breath. No cough. No pleuritic pain or hemoptysis, Cardiovascular - No angina pain. No palpitations, Gastrointestinal - No nausea or vomiting. No heartburn or acid reflux. Occasional diarrhea, no constipation. No blood in the stool or black stools, Genitourinary (M) - No dysuria or hematuria. No urinary frequency. Positive for urgency. No incontinence. Positive for Nocturia, Musculoskeletal - No joint or bone pain, Neurologic - No headache or dizziness. No numbness/paresthesias or other focal neurologic symptoms, Psychiatric - Positive for anxiety, no depression. No insomnia. Vital Signs: Performed on Sep 14, 2019 14:54 Height - 71.00 in Weight - 182.0 lbs (LOW) BSA - 2.03 sq.m BMI - 25.38 Temperature - 98.1 F (LOW) Pulse - 75 /min Respiration - 18 /min BP - 110/68 mm(hg) O2 Sat - 96 % Pain - 0 Performance Status: 0 - Fully active, able to carry on all predisease activities without restrictions. (ECOG) Physical Examination: ENMT - No oral exudates, ulcers, masses, thrush or mucositis. Oropharynx clear. Tongue normal, Respiratory - Lungs are clear, Cardiovascular - Regular rate and rhythm of heart, Abdomen - Non-tender, non-distended, Good bowel sounds. No guarding or rebound tenderness, Extremities - No visible edema. Lab/Imaging: Test performed on Jul 28, 2019 07:30 WBC 6.3 10 3/uL RBC 4.25 10 6/uL HGB 13.8 g/dL HCT 42.6 % MCV 100.2 fL MCH 32.5 pg MCHC 32.4 g/dL RDW 19.8 % Platelet Count 354 10 3/cmm MPV 9.6 fL Neutrophils 4.1 10 3/uL Lymphocytes 1.4 10 3/uL Monocytes 0.5 10 3/uL Eosinophils 0.2 10 3/uL Basophils 0.0 10 3/uL Neutrophil % 65.2 % Lymphocyte % 22.4 % Monocyte % 8.0 % Eosinophil % 2.8 % Basophils % 0.2 % Test performed on Jun 06, 2019 07:05 Sodium 139 mmol/L Potassium 4.3 mmol/L Chloride 101 mmol/L CO2 28 mmol/L Anion Gap 14.3 BUN 15 mg/dL Creatinine 1.0 mg/dL Cr Clearance (Est) 85.64 mL/min eGFR 73.9 mL/min Glucose 80 mg/dL Calcium 9.5 mg/dL Protein, Total 7.7 g/dL Albumin 3.8 g/dL Globulin 3.9 g/dL Bilirubin, Total 0.5 mg/dL ALT (SGPT) 40 U/L AST (SGOT) 38 U/L Alkaline Phosphatase 137 IU/L Test performed on May 09, 2019 09:15 Ferritin 181 ng/mL ESR (Sed Rate) 12 mm/hr Manual Bands % 15.0 % Manual Lymphs % 11 % Manual Monos % 9.0 % Metamyelocytes % 1.0 % Myelocytes % 2.0 % CBC Slide Review Slide Review Perform Manual Bands Abs 1.5 10 3/cmm Manual Monocytes Abs 0.9 10 3/cmm Manual Eosinophils Abs 0.2 10 3/cmm Impression: Essential thrombocytosis ,JAK2 mutation positive confirmed on 05/09/2019 Started on hydroxyurea/baby aspirin on 05/23/2019 COPD/emphysema, no history of smoking Ascending Aortic aneurysm. Plan: Discussed with patient regarding his labs white blood count 5.1 hemoglobin 14.5 crit 43.7 platelets 396,000 Clinically, patient is doing well, tolerating hydroxyurea 500 mg p.o. daily well, has follow-up CBC is within normal range now, will continue same dose and then he will return to clinic in 3 months with CBC. Signed By: Wong Snow M.D. <<Signature on File>>
== END 2019-09-14 13:13 | disposition home or self-care (01) ==
LOC: ONCMED 13:15
PROVIDERS: PCP Family Medicine; Visit Provider Internal Medicine Hematology & Oncology
DX: D47.3 Essential (hemorrhagic) thrombocythemia (principal); F41.9 Anxiety disorder, unspecified; J44.9 Chronic obstructive pulmonary disease, unspecified; G31.83 Neurocognitive disorder with Lewy bodies; F02.80 Dementia in other diseases classified elsewhere, unspecified severity, without behavioral disturbance, psychotic disturbance, mood disturbance, and anxiety; E78.5 Hyperlipidemia, unspecified; G47.33 Obstructive sleep apnea (adult) (pediatric); E55.9 Vitamin D deficiency, unspecified; I71.2 Thoracic aortic aneurysm, without rupture
CPT/HCPCS: 36415; 85025; 99214

== ENCOUNTER 2019-09-28 09:32 | Outpatient (CLI) | payer OTHER, SELFPAY ==
[2019-10-03 06:52] LABS: Alternaria Alternata (M6) Ige <0.10 kU/L; Alternaria Class 0; Cat Dander (E1) Ige <0.10 kU/L; Cat Dander Class 0; Common Ragweed (Short) (W1) Ig <0.10 kU/L; D. Farinae Class 0; Dermatophagoides Class 0; Dermatophagoides Farinae (D2) <0.10 kU/L; Dermatophagoides Pteronyssinus <0.10 kU/L; Dog Dander (E5) Ige <0.10 kU/L; Dog Dander Class 0; Elm (T8) Ige <0.10 kU/L; Elm Class 0; English Plantain (W9) Ige <0.10 kU/L; English Plantain Class 0; House Dust (Greer) (H1) Ige <0.10 kU/L; House Dust (Hollister- Stier) <0.10 kU/L; House Dust Class 0; Immunoglobulin E 181 kU/L (<OR=114); Immunoglobulin E 194 kU/L (<OR=114); Lamb'S Quarters (Goose Foot) <0.10 kU/L; Lamb'S Quarters Class 0; Maple (Box Elder) (T1) Ige <0.10 kU/L; Maple Class 0; Mucor Racemosus Class 0; Oak (T7) Ige <0.10 kU/L; Oak Class 0; Penicillium Class 0; Penicillium Notatum (M1) Ige <0.10 kU/L; Ragweeed Class 0; Rough Marsh Elder (W16) Ige <0.10 kU/L; Rough Marsh Elder Class 0
[2019-10-03 06:53] LABS: Bermuda Class 0; Bermuda Grass (G2) Ige <0.10 kU/L; Johnson Grass (G10) Ige <0.10 kU/L; Johnson Grass Cl 0; June Grass Class 0; June Grass(Kentucky Blue) (G8) <0.10 kU/L; Meadow Fescue (G4) Ige <0.10 kU/L; Meadow Fescue Class 0; Orchard Grass (Cocksfoot) (G3) <0.10 kU/L; Perennial Rye Grass (G5) Ige <0.10 kU/L; Perennial Rye Grass Class 0; Sweet Vernal Class 0; Sweet Vernal Grass (G1) Ige <0.10 kU/L; Timothy Grass (G6) Ige <0.10 kU/L; Timothy Grass Class 0
[2019-10-03 15:41] LABS: Aspergillus Fumigatus, Igg Ab, 10.3 mg/L (<=102)
== END 2019-09-28 09:33 | disposition home or self-care (01) ==
LOC: LAB 09:34
PROVIDERS: PCP Family Medicine; Visit Provider Internal Medicine Critical Care Medicine
DX: R06.02 Shortness of breath (principal); J45.909 Unspecified asthma, uncomplicated
CPT/HCPCS: 82785; 86003

== ENCOUNTER → 2019-12-11 14:12 | Outpatient (BNVA) | payer OTHER, SELFPAY | PROVIDERS: PCP Family Medicine; Visit Provider Specialist | DX: G31.84 Mild cognitive impairment of uncertain or unknown etiology (principal) | CPT/HCPCS: 99213 ==

== ENCOUNTER 2019-12-11 15:39 | Outpatient (CLI) | payer OTHER, SELFPAY ==
[2019-12-11 16:47] LABS: Vitamin B12 172 pg/mL (232-1245)
[2019-12-15 23:57] LABS: Methylmalonic Acid 302 nmol/L (87-318)
== END 2019-12-11 15:40 | disposition home or self-care (01) ==
LOC: LAB 15:40
PROVIDERS: PCP Family Medicine; Visit Provider Specialist
DX: R20.0 Anesthesia of skin (principal); R20.2 Paresthesia of skin
CPT/HCPCS: 82607; 83921

== ENCOUNTER 2020-01-24 13:43 | Outpatient (CLI) | payer OTHER, SELFPAY ==
[2020-01-24 14:09] LABS: Basophils % 0.3 %; Eosinophils # 0.2 10^3/uL (0.0-0.8); Eosinophils % 1.9 %; Hematocrit 43.9 % (42.0-52.0); Hemoglobin 14.4 g/dL (11.7-16.6); Lymphocytes # 1.6 10^3/uL (0.8-4.8); Lymphocytes % 17.7 %; Mean Corpuscular HGB Conc 32.8 g/dL (30.0-36.0); Mean Corpuscular Hemoglobin 34.9 pg (28.0-34.0); Mean Corpuscular Volume 106.3 fL (80-94); Mean Platelet Volume 9.6 fL (7.4-10.4); Monocytes # 0.7 10^3/uL (0.2-0.9); Monocytes % 7.6 %; Neutrophils # 6.07 10^3/uL (1.8-7.7); Neutrophils % 69.5 %; Nucleated Red Blood Cells % 0 %; Platelet Count 540 10^3/cmm (130-400); Red Blood Count 4.13 10^6/uL (4.1-5.3); Red Cell Distribution Width 13.6 % (12.1-15.1); White Blood Count 8.7 10^3/uL (4.0-10.0)
--- NOTE | 2020-01-24 16:23 | ONC FU_ITS ---
Dr. Snow follow up note Patient: Brennon Melendez Unit #: [id number]: 1950 Dicatated By: Wong Snow M.D.Date of Visit:Jan 24, 2020 Onc Med Follow-up/Prog Note History of Present Illness: Mr. Brennon Melendez, is a 69-year-old gentleman with long-standing history of thrombocytosis, as per patient initially he was told about high. Count in July 2018 but his platelet count has been high for a while prior to that. But recently his physician got concerned and other than that no history of headaches or blurred vision or double vision no history of chest pain or shortness of breath no history of night sweats fever chills no history of peripheral lymphadenopathy. No history of abdominal fullness. No history of abnormal bleeding. No history of smoking but history of COPD, sleep apnea, hyperlipidemia, chronic neck and back pain. His labs checked on 04/19/2019 showed white blood count 11.9, hemoglobin 15.4 crit 46.6 platelets 865,[address] scan of chest done on 04/27/2019 showed few very small densities in both lungs, atherosclerotic changes involving thoracic aorta with mild aneurysm of ascending aorta which has diameter 4.3 cm. Or myelomatous disease. A few mediastinal lymph nodes contain calcification. Chest x-ray done on 04/06/2019 showed hyperinflated lungs with emphysema. Ultrasound abdomen done on 05/23/2019 showedSpleen size 4.2 x 5.1 x 11.8 cm, liver is enlarged measuring 19.6 cm Clau 2 mutation, detected Started on hydroxyurea 500 mg by mouth daily and aspirin 81 mg by mouth daily on 05/23/2019, for essential thrombocytosis Came for follow-up, has any specific complaints except episode of abnormal LFTs in November 2019 when he was in [place] and he was diagnosed with altitude sickness and abnormal liver function lab work-up done on November 11, 2019 showed white blood count was 10.1 hemoglobin 15.4 hematocrit 45.1 platelets 365,000 and CMP showed ALT 206 AST 181 with a normal bilirubin and mildly elevated alkaline phosphatase at 161 respiratory viral panel by PCR was ordered and including Covid 19 and it came back negative as per patient he was given prednisone 20 mg 3 tablets p.o. daily for 5 days for asthma exacerbation and albuterol inhaler. Patient said at the same time, he changed his hydroxyurea dose to 500 mg p.o. every other day from daily as it was recommended. Medications: Albuterol Sulfate 1 ((2.5 mg/3ml) 0.083%) Nebulization solution Inhalation daily, Albuterol Sulfate 1 Puff(s) (of 108 (90 base) mcg/act) Aerosol Powder, Breath Activated Inhalation daily, Aspirin 1 Tablet (of 81 mg) Oral daily, CBD 1 Capsule (of 5 mg) Oral daily, Cholecalciferol 1 Tablet (of 25 mcg ) Oral daily, guaiFENesin 10 mL (of 100 mg/5mL) Syrup Oral PRN, Hydroxyurea 1 Capsule (of 500 mg) Oral daily, Metamucil 1 Capsule Oral daily, QUEtiapine Fumarate 1 Tablet (of 100 mg) Oral daily, Symbicort 1 Puff(s) (of 80-4.5 mcg/act) Aerosol Inhalation daily Allergies: No Known Allergies. Review of Systems: Review of Systems is not available for this patient. Vital Signs: Performed on Jan 24, 2020 15:42 Height - 71.00 in Weight - 193.2 lbs (HIGH) BSA - 2.08 sq.m BMI - 26.95 Temperature - 98.0 F (LOW) Pulse - 64 /min Respiration - 16 /min BP - 116/67 mm(hg) O2 Sat - 98 % Pain - 0 Performance Status: 0 - Fully active, able to carry on all predisease activities without restrictions. (ECOG) Physical Examination: ENMT - No mouth sores, no thrush, no jaundice, Respiratory - Lungs are clear to auscultation, Cardiovascular - Regular rate and rhythm of heart, Abdomen - Soft, bowel sounds present, Extremities - No visible edema. Lab/Imaging: Test performed on Sep 14, 2019 13:24 WBC 5.2 10 3/uL RBC 4.16 10 6/uL HGB 14.5 g/dL HCT 43.7 % MCV 105.0 fL MCH 34.9 pg MCHC 33.2 g/dL RDW 17.3 % Platelet Count 396 10 3/cmm MPV 9.6 fL Neutrophils 3.3 10 3/uL Lymphocytes 1.3 10 3/uL Monocytes 0.4 10 3/uL Eosinophils 0.1 10 3/uL Basophils 0.0 10 3/uL Neutrophil % 62.7 % Lymphocyte % 24.3 % Monocyte % 8.4 % Eosinophil % 1.9 % Basophils % 0.4 % Impression: Essential thrombocytosis ,JAK2 mutation positive confirmed on 05/09/2019 Started on hydroxyurea/baby aspirin on 05/23/2019 COPD/emphysema, no history of smoking Ascending Aortic aneurysm. Plan: Discussed with patient regarding his labs white blood count 8.7 hemoglobin 14.4 hematocrit 43.9 platelets 540,000 Clinically, patient doing well with no new signs symptoms, patient was advised to increase his hydroxyurea dose to 500 g p.o. daily from 500 mg p.o. every other day as his blood counts especially thrombocytosis was better controlled with daily hydroxyurea, since he has reduced hydroxyurea dose to every other day, his platelet count has gone up to 540,000 compared to 396,000 on September 14, 2019 and 365,000 on November 11, 2019. Return to clinic in 1 month with CBC and CMP, Signed By: Wong Snow M.D. <<Signature on File>>
== END 2020-01-24 13:44 | disposition home or self-care (01) ==
LOC: ONCMED 13:45
PROVIDERS: PCP Family Medicine; Visit Provider Internal Medicine Hematology & Oncology
DX: D47.3 Essential (hemorrhagic) thrombocythemia (principal); J43.9 Emphysema, unspecified; I71.4 Abdominal aortic aneurysm, without rupture; Z79.899 Other long term (current) drug therapy
CPT/HCPCS: 36415; 85025; 99214

== ENCOUNTER 2020-03-01 08:07 | Outpatient (CLI) | payer OTHER, SELFPAY ==
[2020-03-01 08:31] LABS: Basophils % 0.6 %; Eosinophils # 0.1 10^3/uL (0.0-0.8); Eosinophils % 1.6 %; Hematocrit 44.9 % (42.0-52.0); Hemoglobin 14.4 g/dL (11.7-16.6); Lymphocytes # 1.1 10^3/uL (0.8-4.8); Lymphocytes % 16.2 %; Mean Corpuscular HGB Conc 32.1 g/dL (30.0-36.0); Mean Platelet Volume 9.7 fL (7.4-10.4); Monocytes # 0.6 10^3/uL (0.2-0.9); Monocytes % 8.1 %; Neutrophils # 4.73 10^3/uL (1.8-7.7); Neutrophils % 69.4 %; Nucleated Red Blood Cells % 0 %; Platelet Count 452 10^3/cmm (130-400); Red Blood Count 4.12 10^6/uL (4.1-5.3); Red Cell Distribution Width 14.7 % (12.1-15.1); White Blood Count 6.8 10^3/uL (4.0-10.0)
[2020-03-01 08:47] LABS: Alanine Aminotransferase 26 U/L (0-41); Albumin Level 4.1 g/dL (3.5-5.2); Alkaline Phosphatase 157 IU/L (40-130); Aspartate Amino Transferase 23 U/L (0-40); Blood Urea Nitrogen 13 mg/dL (8-23); Calcium 9.2 mg/dL (8.5-10.5); Carbon Dioxide 29 mmol/L (22-29); Chloride 101 mmol/L (98-107); Globulin 3.1 g/dL (1.3-4.6); Glucose 76 mg/dL (65-115); Osmolality Calculated 281 mOsm/kg (285-295); Sodium 136 mmol/L (136-145); Total Bilirubin 0.5 mg/dL (0.15-1.2); Total Protein 7.2 g/dL (6.6-8.7)
--- NOTE | 2020-03-01 10:23 | ONC FU_ITS ---
Dr. Snow follow up note Patient: Brennon Melendez Unit #: [id number]: 1950 Dicatated By: Wong Snow M.D.Date of Visit:Mar 01, 2020 Onc Med Follow-up/Prog Note History of Present Illness: Mr. Brennon Melendez, is a 69-year-old gentleman with long-standing history of thrombocytosis, as per patient initially he was told about high. Count in July 2018 but his platelet count has been high for a while prior to that. But recently his physician got concerned and other than that no history of headaches or blurred vision or double vision no history of chest pain or shortness of breath no history of night sweats fever chills no history of peripheral lymphadenopathy. No history of abdominal fullness. No history of abnormal bleeding. No history of smoking but history of COPD, sleep apnea, hyperlipidemia, chronic neck and back pain. His labs checked on 04/19/2019 showed white blood count 11.9, hemoglobin 15.4 crit 46.6 platelets 865,[address] scan of chest done on 04/27/2019 showed few very small densities in both lungs, atherosclerotic changes involving thoracic aorta with mild aneurysm of ascending aorta which has diameter 4.3 cm. Or myelomatous disease. A few mediastinal lymph nodes contain calcification. Chest x-ray done on 04/06/2019 showed hyperinflated lungs with emphysema. Ultrasound abdomen done on 05/23/2019 showedSpleen size 4.2 x 5.1 x 11.8 cm, liver is enlarged measuring 19.6 cm Clau 2 mutation, detected Started on hydroxyurea 500 mg by mouth daily and aspirin 81 mg by mouth daily on 05/23/2019, for essential thrombocytosis Came for follow-up, denies any specific complaints, no fever chills, no nausea or vomiting, no diarrhea or constipation, no headaches blurred vision or double vision, tolerating daily hydroxyurea well Medications: Albuterol Sulfate 1 ((2.5 mg/3ml) 0.083%) Nebulization solution Inhalation daily, Albuterol Sulfate 1 Puff(s) (of 108 (90 base) mcg/act) Aerosol Powder, Breath Activated Inhalation daily, Aspirin 1 Tablet (of 81 mg) Oral daily, CBD 1 Capsule (of 5 mg) Oral daily, Cholecalciferol 1 Tablet (of 25 mcg ) Oral daily, guaiFENesin 10 mL (of 100 mg/5mL) Syrup Oral PRN, Hydroxyurea 1 Capsule (of 500 mg) Oral daily, Metamucil 1 Capsule Oral daily, QUEtiapine Fumarate 1 Tablet (of 100 mg) Oral daily, Symbicort 1 Puff(s) (of 80-4.5 mcg/act) Aerosol Inhalation daily Allergies: No Known Allergies. Review of Systems: Review of Systems is not available for this patient. Vital Signs: Performed on Mar 01, 2020 10:05 Height - 71.00 in Weight - 193.4 lbs (HIGH) BSA - 2.08 sq.m BMI - 26.97 Temperature - 98.6 F Pulse - 78 /min Respiration - 18 /min BP - 122/66 mm(hg) O2 Sat - 99 % Pain - 0 Performance Status: 0 - Fully active, able to carry on all predisease activities without restrictions. (ECOG) Physical Examination: ENMT - No mouth sores, no thrush, no Jaundice, Respiratory - Lungs are clear to auscultation, Cardiovascular - Regular rate and rhythm of heart, Abdomen - Soft, bowel sounds present, Extremities - No visible edema. Lab/Imaging: Test performed on Jan 24, 2020 13:50 WBC 8.7 10 3/uL RBC 4.13 10 6/uL HGB 14.4 g/dL HCT 43.9 % MCV 106.3 fL MCH 34.9 pg MCHC 32.8 g/dL RDW 13.6 % Platelet Count 540 10 3/cmm MPV 9.6 fL Neutrophils 6.07 10 3/uL Lymphocytes 1.6 10 3/uL Monocytes 0.7 10 3/uL Eosinophils 0.2 10 3/uL Basophils 0.0 10 3/uL Neutrophil % 69.5 % Lymphocyte % 17.7 % Monocyte % 7.6 % Eosinophil % 1.9 % Basophils % 0.3 % NRBC % 0 % Impression: Essential thrombocytosis ,JAK2 mutation positive confirmed on 05/09/2019 Started on hydroxyurea/baby aspirin on 05/23/2019 COPD/emphysema, no history of smoking Ascending Aortic aneurysm. Plan: Discussed with patient regarding his labs white blood count 6.8 hemoglobin 14.4 hematocrit 44.9 platelets 452,000, CMP within normal limits Clinically, patient doing well with no new signs symptom, tolerating hydroxyurea 500 mg p.o. daily and his follow-up labs shows good response and further improvement in his platelet count now down to 452,000 compared to 540,000 on January 24, 2020 and white blood count and hemoglobin normal range, will continue with same dose e.g. Hydrea 500 mg p.o. daily and then return to clinic in 2 months with CBC. Episode of transaminitis, now resolved Signed By: Wong Snow M.D. <<Signature on File>>
== END 2020-03-01 08:08 | disposition home or self-care (01) ==
LOC: ONCMED 08:08
PROVIDERS: PCP Family Medicine; Visit Provider Internal Medicine Hematology & Oncology
DX: D47.3 Essential (hemorrhagic) thrombocythemia (principal); J43.9 Emphysema, unspecified; I71.2 Thoracic aortic aneurysm, without rupture; Z79.899 Other long term (current) drug therapy
CPT/HCPCS: 36415; 80053; 85025; 99214

== ENCOUNTER 2020-05-01 10:28 | Outpatient (CLI) | payer OTHER, SELFPAY ==
[2020-05-01 10:55] LABS: Basophils % 0.4 %; Eosinophils # 0.1 10^3/uL (0.0-0.8); Eosinophils % 1.4 %; Hemoglobin 14.8 g/dL (11.7-16.6); Lymphocytes # 1.3 10^3/uL (0.8-4.8); Lymphocytes % 22.4 %; Mean Corpuscular HGB Conc 32.9 g/dL (30.0-36.0); Mean Corpuscular Volume 109.5 fL (80-94); Mean Platelet Volume 9.4 fL (7.4-10.4); Monocytes # 0.5 10^3/uL (0.2-0.9); Monocytes % 8.4 %; Neutrophils # 3.61 10^3/uL (1.8-7.7); Neutrophils % 64.9 %; Nucleated Red Blood Cells % 0 %; Platelet Count 363 10^3/cmm (130-400); Red Blood Count 4.11 10^6/uL (4.1-5.3); White Blood Count 5.6 10^3/uL (4.0-10.0)
--- NOTE | 2020-05-01 13:10 | ONC FU_ITS ---
Dr. Snow follow up note Patient: Brennon Melendez Unit #: [id number]: 1950 Dicatated By: Wong Snow M.D.Date of Visit:May 01, 2020 Onc Med Follow-up/Prog Note History of Present Illness: Mr. Brennon Melendez, is a 69-year-old gentleman with long-standing history of thrombocytosis, as per patient initially he was told about high. Count in July 2018 but his platelet count has been high for a while prior to that. But recently his physician got concerned and other than that no history of headaches or blurred vision or double vision no history of chest pain or shortness of breath no history of night sweats fever chills no history of peripheral lymphadenopathy. No history of abdominal fullness. No history of abnormal bleeding. No history of smoking but history of COPD, sleep apnea, hyperlipidemia, chronic neck and back pain. His labs checked on 04/19/2019 showed white blood count 11.9, hemoglobin 15.4 crit 46.6 platelets 865,[address] scan of chest done on 04/27/2019 showed few very small densities in both lungs, atherosclerotic changes involving thoracic aorta with mild aneurysm of ascending aorta which has diameter 4.3 cm. Or myelomatous disease. A few mediastinal lymph nodes contain calcification. Chest x-ray done on 04/06/2019 showed hyperinflated lungs with emphysema. Ultrasound abdomen done on 05/23/2019 showedSpleen size 4.2 x 5.1 x 11.8 cm, liver is enlarged measuring 19.6 cm Clau 2 mutation, detected Started on hydroxyurea 500 mg by mouth daily and aspirin 81 mg by mouth daily on 05/23/2019, for essential thrombocytosis Hydroxyurea 500 mg p.o. daily was reduced to 500 milligram daily for 5 days/week on May 01, 2020 As platelet count continue to improve Came for follow-up, denies any specific complaints, no fever chills, no nausea or vomiting, no diarrhea constipation, no headaches, no chest heaviness, no jaundice, no night sweats, no abdominal fullness Medications: Albuterol Sulfate 1 ((2.5 mg/3ml) 0.083%) Nebulization solution Inhalation daily, Albuterol Sulfate 1 Puff(s) (of 108 (90 base) mcg/act) Aerosol Powder, Breath Activated Inhalation daily, Aspirin 1 Tablet (of 81 mg) Oral daily, CBD 1 Capsule (of 5 mg) Oral daily, Cholecalciferol 1 Tablet (of 25 mcg ) Oral daily, guaiFENesin 10 mL (of 100 mg/5mL) Syrup Oral PRN, Hydroxyurea 1 Capsule (of 500 mg) Oral daily, Metamucil 1 Capsule Oral daily, QUEtiapine Fumarate 1 Tablet (of 100 mg) Oral daily, Symbicort 1 Puff(s) (of 80-4.5 mcg/act) Aerosol Inhalation daily Allergies: No Known Allergies. Review of Systems: Review of Systems is not available for this patient. Vital Signs: Vitals are not available for this patient. Performance Status: 0 - Fully active, able to carry on all predisease activities without restrictions. (ECOG) Physical Examination: ENMT - No mouth sores, no thrush, no jaundice, Respiratory - Lungs are clear to auscultation, Cardiovascular - Regular rate and rhythm of heart, Abdomen - Soft, bowel sounds Present, Extremities - No visible edema. Lab/Imaging: Test performed on Mar 01, 2020 08:23 Sodium 136 mmol/L Potassium 4.0 mmol/L Chloride 101 mmol/L CO2 29 mmol/L Anion Gap 10.0 BUN 13 mg/dL Creatinine 1.1 mg/dL Cr Clearance (Est) 76.43 mL/min Glucose 76 mg/dL Osmolality - Calculated 281 mOsm/kg Calcium 9.2 mg/dL Protein, Total 7.2 g/dL Albumin 4.1 g/dL Globulin 3.1 g/dL Bilirubin, Total 0.5 mg/dL ALT (SGPT) 26 U/L AST (SGOT) 23 U/L Alkaline Phosphatase 157 IU/L WBC 6.8 10 3/uL RBC 4.12 10 6/uL HGB 14.4 g/dL HCT 44.9 % MCV 109.0 fL MCH 35.0 pg MCHC 32.1 g/dL RDW 14.7 % Platelet Count 452 10 3/cmm MPV 9.7 fL Neutrophils 4.73 10 3/uL Lymphocytes 1.1 10 3/uL Monocytes 0.6 10 3/uL Eosinophils 0.1 10 3/uL Basophils 0.0 10 3/uL Neutrophil % 69.4 % Lymphocyte % 16.2 % Monocyte % 8.1 % Eosinophil % 1.6 % Basophils % 0.6 % NRBC % 0 % Impression: Essential thrombocytosis ,JAK2 mutation positive confirmed on 05/09/2019 Started on hydroxyurea/baby aspirin on 05/23/2019 COPD/emphysema, no history of smoking Ascending Aortic aneurysm. Plan: Discussed with patient regarding his labs white blood count 5.6 hemoglobin 14.8 hematocrit 45 platelet 363,000 compared to 452,000 previously Clinically, patient doing well with no new signs symptoms, tolerating hydroxyurea well. His follow-up labs shows progressive improvement in isolated thrombocytosis, at this point, to establish maintenance hydroxyurea dose, we will consider hydroxyurea dose reduction to 500 mg p.o. daily 5 days a week from every day and follow-up with his CBC on her return to clinic in 2 months Signed By: Wong Snow M.D. <<Signature on File>>
== END 2020-05-01 10:29 | disposition home or self-care (01) ==
PROVIDERS: PCP Family Medicine; Visit Provider Internal Medicine Hematology & Oncology
DX: D47.3 Essential (hemorrhagic) thrombocythemia (principal); J43.9 Emphysema, unspecified; I71.9 Aortic aneurysm of unspecified site, without rupture; Z79.899 Other long term (current) drug therapy
CPT/HCPCS: 36415; 85025; G0463

== ENCOUNTER → 2020-05-22 08:04 | Outpatient (BNVA) | payer OTHER, SELFPAY | PROVIDERS: PCP Family Medicine; Visit Provider Specialist | DX: F03.90 Unspecified dementia, unspecified severity, without behavioral disturbance, psychotic disturbance, mood disturbance, and anxiety (principal) | CPT/HCPCS: 99213 ==

== ENCOUNTER 2020-07-30 14:07 | Outpatient (CLI) | payer OTHER, SELFPAY ==
[2020-07-30 14:59] LABS: Basophils % 0.3 %; Eosinophils # 0.1 10^3/uL (0.0-0.8); Hematocrit 43.6 % (42.0-52.0); Hemoglobin 14.2 g/dL (11.7-16.6); Lymphocytes # 1.2 10^3/uL (0.8-4.8); Lymphocytes % 20.5 %; Mean Corpuscular HGB Conc 32.6 g/dL (30.0-36.0); Mean Corpuscular Hemoglobin 36.2 pg (28.0-34.0); Mean Corpuscular Volume 111.2 fL (80-94); Mean Platelet Volume 9.8 fL (7.4-10.4); Monocytes # 0.3 10^3/uL (0.2-0.9); Neutrophils # 4.08 10^3/uL (1.8-7.7); Neutrophils % 67.9 %; Nucleated Red Blood Cells % 0 %; Platelet Count 438 10^3/cmm (130-400); Red Blood Count 3.92 10^6/uL (4.1-5.3); Red Cell Distribution Width 13.7 % (12.1-15.1)
--- NOTE | 2020-07-30 16:14 | ONC FU_ITS ---
Dr. nSow follow up note Patient: Brennon Melendez Unit #: [id number]: 1950 Dicatated By: Wong Snow M.D.Date of Visit:Jul 30, 2020 Onc Med Follow-up/Prog Note History of Present Illness: Mr. Brennon Melendez, is a 70-year-old gentleman with long-standing history of thrombocytosis, as per patient initially he was told about high. Count in July 2018 but his platelet count has been high for a while prior to that. But recently his physician got concerned and other than that no history of headaches or blurred vision or double vision no history of chest pain or shortness of breath no history of night sweats fever chills no history of peripheral lymphadenopathy. No history of abdominal fullness. No history of abnormal bleeding. No history of smoking but history of COPD, sleep apnea, hyperlipidemia, chronic neck and back pain. His labs checked on 04/19/2019 showed white blood count 11.9, hemoglobin 15.4 crit 46.6 platelets 865,[address] scan of chest done on 04/27/2019 showed few very small densities in both lungs, atherosclerotic changes involving thoracic aorta with mild aneurysm of ascending aorta which has diameter 4.3 cm. Or myelomatous disease. A few mediastinal lymph nodes contain calcification. Chest x-ray done on 04/06/2019 showed hyperinflated lungs with emphysema. Ultrasound abdomen done on 05/23/2019 showedSpleen size 4.2 x 5.1 x 11.8 cm, liver is enlarged measuring 19.6 cm Clau 2 mutation, detected Started on hydroxyurea 500 mg by mouth daily and aspirin 81 mg by mouth daily on 05/23/2019, for essential thrombocytosis Hydroxyurea 500 mg p.o. daily was reduced to 500 milligram daily for 5 days/week on May 01, 2020 As platelet count continue to improve Came for follow-up, denies any specific complaints, no fever chills, no nausea or vomiting, no diarrhea or constipation, no headaches, tolerating hydroxyurea well Medications: Albuterol Sulfate 1 ((2.5 mg/3ml) 0.083%) Nebulization solution Inhalation daily, Albuterol Sulfate 1 Puff(s) (of 108 (90 base) mcg/act) Aerosol Powder, Breath Activated Inhalation daily, Aspirin 1 Tablet (of 81 mg) Oral daily, CBD 1 Capsule (of 5 mg) Oral daily, Cholecalciferol 1 Tablet (of 25 mcg ) Oral daily, guaiFENesin 10 mL (of 100 mg/5mL) Syrup Oral PRN, Hydroxyurea 1 Capsule (of 500 mg) Oral daily, Metamucil 1 Capsule Oral daily, QUEtiapine Fumarate 1 Tablet (of 100 mg) Oral daily, Symbicort 1 Puff(s) (of 80-4.5 mcg/act) Aerosol Inhalation daily Allergies: No Known Allergies. Review of Systems: Review of Systems is not available for this patient. Vital Signs: Performed on Jul 30, 2020 15:21 Height - 71.00 in Weight - 196 lbs (LOW) BSA - 2.09 sq.m BMI - 27.34 Temperature - 97.5 F (LOW) Pulse - 60 /min Respiration - 18 /min BP - 129/63 mm(hg) O2 Sat - 97 % Pain - 0 Fatigue - 0 Performance Status: 0 - Fully active, able to carry on all predisease activities without restrictions. (ECOG) Physical Examination: ENMT - No mouth sores, no thrush, no jaundice, Respiratory - Lungs are clear to auscultation, Cardiovascular - Regular rate and rhythm of heart, Abdomen - Soft, bowel sounds present, Extremities - No visible edema. Lab/Imaging: Test performed on May 01, 2020 10:43 WBC 5.6 10 3/uL RBC 4.11 10 6/uL HGB 14.8 g/dL HCT 45.0 % MCV 109.5 fL MCH 36.0 pg MCHC 32.9 g/dL RDW 15.0 % Platelet Count 363 10 3/cmm MPV 9.4 fL Neutrophils 3.61 10 3/uL Lymphocytes 1.3 10 3/uL Monocytes 0.5 10 3/uL Eosinophils 0.1 10 3/uL Basophils 0.0 10 3/uL Neutrophil % 64.9 % Lymphocyte % 22.4 % Monocyte % 8.4 % Eosinophil % 1.4 % Basophils % 0.4 % NRBC % 0 % Test performed on Mar 01, 2020 08:23 Sodium 136 mmol/L Potassium 4.0 mmol/L Chloride 101 mmol/L CO2 29 mmol/L Anion Gap 10.0 BUN 13 mg/dL Creatinine 1.1 mg/dL Cr Clearance (Est) 76.43 mL/min Glucose 76 mg/dL Osmolality - Calculated 281 mOsm/kg Calcium 9.2 mg/dL Protein, Total 7.2 g/dL Albumin 4.1 g/dL Globulin 3.1 g/dL Bilirubin, Total 0.5 mg/dL ALT (SGPT) 26 U/L AST (SGOT) 23 U/L Alkaline Phosphatase 157 IU/L Impression: Essential thrombocytosis ,JAK2 mutation positive confirmed on 05/09/2019 Started on hydroxyurea/baby aspirin on 05/23/2019 COPD/emphysema, no history of smoking Ascending Aortic aneurysm. Plan: Discussed with patient regarding his labs white blood count 6 hemoglobin 14.2 hematocrit 43.6 platelets 438,000 Clinically, patient doing well with no new signs symptoms, tolerating hydroxyurea 500 mg, 5 days a week well, his follow-up CBC shows platelet count in a desirable range and white blood count as well as hemoglobin within normal range, will continue with same dose and schedule e.g. 500 mg p.o. daily 5 days a week, as far as hydroxyurea is concerned and then he will return to clinic in 3 months with CBC Signed By: Wong Snow M.D. <<Signature on File>>
== END 2020-07-30 14:08 | disposition home or self-care (01) ==
LOC: ONCMED 14:09
PROVIDERS: PCP Family Medicine; Visit Provider Internal Medicine Hematology & Oncology
DX: D47.3 Essential (hemorrhagic) thrombocythemia (principal); J43.9 Emphysema, unspecified; I71.4 Abdominal aortic aneurysm, without rupture; Z79.899 Other long term (current) drug therapy
CPT/HCPCS: 36415; 85025; 99214

== ENCOUNTER → 2020-09-11 08:10 | Outpatient (BNVA) | payer OTHER, SELFPAY | PROVIDERS: PCP Family Medicine; Referring Provider Family Medicine; Visit Provider Orthopaedic Surgery | DX: M25.562 Pain in left knee (principal) | CPT/HCPCS: 73560; 73565 ==

== ENCOUNTER 2020-10-31 07:52 | Outpatient (CLI) | payer OTHER, MEDICARE, SELFPAY ==
[2020-10-31 08:48] LABS: Basophils % 0.4 %; Eosinophils # 0.1 10^3/uL (0.0-0.8); Eosinophils % 1.9 %; Hematocrit 42.4 % (42.0-52.0); Hemoglobin 13.8 g/dL (11.7-16.6); Lymphocytes # 1.2 10^3/uL (0.8-4.8); Lymphocytes % 17.2 %; Mean Corpuscular HGB Conc 32.5 g/dL (30.0-36.0); Mean Corpuscular Hemoglobin 34.8 pg (28.0-34.0); Mean Corpuscular Volume 107.1 fL (80-94); Mean Platelet Volume 9.9 fL (7.4-10.4); Monocytes # 0.7 10^3/uL (0.2-0.9); Monocytes % 9.7 %; Neutrophils % 68.8 %; Nucleated Red Blood Cells % 0 %; Platelet Count 401 10^3/cmm (130-400); Red Blood Count 3.96 10^6/uL (4.1-5.3); Red Cell Distribution Width 14.3 % (12.1-15.1)
== END 2020-10-31 07:53 | disposition home or self-care (01) ==
PROVIDERS: PCP Family Medicine; Visit Provider Internal Medicine Hematology & Oncology
DX: D47.3 Essential (hemorrhagic) thrombocythemia (principal)
CPT/HCPCS: 36415; 85025

== ENCOUNTER → 2020-12-30 10:25 | Day surgery (SDC) | payer OTHER, SELFPAY | PROVIDERS: PCP Family Medicine; Visit Provider Orthopaedic Surgery | DX: Z01.818 Encounter for other preprocedural examination (principal) | CPT/HCPCS: 85025; 93005 ==

== ENCOUNTER → 2021-01-06 09:09 | Outpatient (BNVA) | payer OTHER, MEDICARE, SELFPAY | PROVIDERS: PCP Family Medicine; Visit Provider Orthopaedic Surgery | DX: Z01.812 Encounter for preprocedural laboratory examination (principal); Z20.822 Contact with and (suspected) exposure to COVID-19 | CPT/HCPCS: 87635 ==

== ENCOUNTER 2021-01-13 09:32 | Observation (INO) | payer OTHER, SELFPAY ==
[2020-12-30 10:21] VITALS: BMI 25.9
--- NOTE | 2020-12-30 10:25 | ECG_ITS ---
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
[2020-12-30 11:05] LABS: Basophils % 0.4 %; Eosinophils # 0.1 10^3/uL (0.0-0.8); Eosinophils % 1.7 %; Hematocrit 43.4 % (42.0-52.0); Hemoglobin 14.3 g/dL (11.7-16.6); Lymphocytes % 19.1 %; Mean Corpuscular HGB Conc 32.9 g/dL (30.0-36.0); Mean Corpuscular Hemoglobin 35.6 pg (28.0-34.0); Monocytes # 0.6 10^3/uL (0.2-0.9); Monocytes % 10.7 %; Neutrophils # 3.54 10^3/uL (1.8-7.7); Neutrophils % 66.4 %; Nucleated Red Blood Cells % 0 %; Platelet Count 445 10^3/cmm (130-400); Red Blood Count 4.02 10^6/uL (4.1-5.3); Red Cell Distribution Width 14.6 % (12.1-15.1); White Blood Count 5.3 10^3/uL (4.0-10.0)
--- NOTE | 2020-12-30 12:39 | ANES.PREANE2 ---
Pre-Anesthetic Assessment Pre-Anesthetic Assessment: Height/Weight: Height 1.8 m Weight 84.368 kg Proposed Procedure: Operation Date: 01/13/21 07:00 Proposed Procedures p left Total Knee Arthroplasty 34502 m17.12(Left) - Alejandro Campos MD Was Beta Johnathan taken within 24 hours: N/A Was Clonidine taken within 24 hours: N/A Social: Social History: No alcohol and No tobacco Exam: Pre-Anes Outpt Exam: alert, oriented x 3, clear to auscultation bilaterally and regular rate & rhythm Airway: Submandibular: WNL Cervical ROM: WNL MP: 2 Dentition: Chipped Pulmonary: Pulmonary: Asthma and COPD Neuropsych: Neuropsych: Dementia Anesthetic Plan: ASA status: 3 Anesthesia: Regional (specify below) (SAB with adductor blk) Risk of > 500 ml blood loss (7ml/kg in children): No PFSH Anesthesia PFSH: Medical History Cyst near tailbone Dementia Mood disorder Nasal sinus congestion Surgical History H/O hernia repair History of ankle surgery History of testicular surgery Family History Other CAD (coronary artery disease) Cancer Diabetes Hypertension Denies family history of Stroke Social History Smoking and tobacco status: never smoked Alcohol intake: never Lives independently: Yes Household members: spouse Marital status: Current occupational status: retired History of recent travel: No Current gender identity: Male Data Anesthesia CBC & Chem 7: 12/30/20 10:40 Other Labs: Laboratory Results - last 48 hr 12/30/20 10:40 WBC 5.3 RBC 4.02 L Hgb 14.3 Hct 43.4 MCV 108.0 H MCH 35.6 H MCHC 32.9 RDW 14.6 Plt Count 445 H MPV 10.0 Neut % (Auto) 66.4 Lymph % (Auto) 19.1 [place] % (Auto) 10.7 Eos % (Auto) 1.7 Baso % (Auto) 0.4 Neut # (Auto) 3.54 Lymph # (Auto) 1.0 [place] # (Auto) 0.6 Eos # (Auto) 0.1 Baso # (Auto) 0.0 Nucleated RBC % (auto) 0 Nucleated RBCs # 0.0 Cardiac Studies: No Data to Display
[2021-01-13] VITALS (16 sets, daily range): BP systolic 83–116; BP diastolic 54–73; PULSE 50–74; RESP 16–20; TEMP 36.1–36.8; O2SAT 94–100
[2021-01-13] MEDS: sodium chloride 0.9% 1,000 ML 30 ML IV (06:20)
--- NOTE | 2021-01-13 07:03 | P.ANESUD_ITS ---
Documented by User: Tr Villarreal Jr, [employer]ACHINE 01/13/21 07:04 Pre-Anesthetic Update Pre-Anesthetic Assessment: Date of Surgery/Procedure: 01/13/21 Proposed Procedure: Operation Date: 01/13/21 07:00 Proposed Procedures p left Total Knee Arthroplasty 35678 m17.12(Left) - Alejandro Campos MD Any changes to Pre-Anesthetic Assessment?: No Last Intake: Intake Last Liquid Date 01/12/21 Last Liquid Time 17:30 Last Solid Date 01/12/21 Last Solid Time 17:30 Vitals: Temperature 98.2 F 01/13/21 05:57 Temperature Source Temporal Artery S can 01/13/21 05:57 Pulse Rate 59 L 01/13/21 05:57 Respiratory Rate 18 01/13/21 05:57 Blood Pressure 115/73 01/13/21 05:57 Blood Pressure [place] n 87 01/13/21 05:57 Pulse Oximetry 98 01/13/21 05:57 Oxygen Delivery Me thod 01/13/21 05:57 Exam: Pre-Anes Outpt Exam: alert, oriented x 3, clear to auscultation bilaterally and regular rate & rhythm Cardiac Studies: No Data to Display Documented by User: Kyree Polk 01/13/21 07:58 Pre-Anesthetic Update Pre-Anesthetic Assessment: Date of Surgery/Procedure: 01/13/21 Cardiac Studies: No Data to Display
--- NOTE | 2021-01-13 07:06 | P.HP_ITS ---
Same Day Surgery H&P Indication for Procedure/HPI DATE OF PROCEDURE: January 13, 2021 CHIEF COMPLAINT/INDICATIONFOR SURGICAL PROCEDURE: Osteoarthritis left knee here for Left toal knee arthroplasty PREOP DIAGNOSIS: Osteoarthritis left knee PLANNED PROCEDRUE: Operation Date: 01/13/21 07:00 Proposed Procedures p left Total Knee Arthroplasty 19633 m17.12(Left) - Alejandro Campos MD Medications/Allergies* Home Medications Medication Instructions Recorded Confirmed Type aspirin 81 mg tablet,delayed 40.5 mg PO DAILY 06/07/19 01/13/21 History release cholecalciferol (vitamin D3) 25 25 mcg PO DAILY 06/07/19 01/13/21 History mcg (1,000 unit) capsule hydroxyurea 500 mg capsule 500 mg PO DIRECTED 06/07/19 01/13/21 History fludrocortisone 0.1 mg tablet 0.1 mg PO DAILY 09/11/20 01/13/21 History cyanocobalamin (vitamin B-12) 500 mcg PO DAILY 12/30/20 01/13/21 History quetiapine 50 mg PO BEDTIME 12/30/20 01/13/21 History zinc 25 mg PO DAILY 12/30/20 01/13/21 History Allergies/Adverse Reactions Allergy/AdvReac Type Severity Reaction Status Date / Time No Known Allergies Allergy Verified 01/08/21 13:58 Current Medications: Generic Name Dose Route Start Last Admin Trade Name Freq PRN Reason Stop Dose Admin Sodium Chloride 1,000 mls @ 30 mls/hr 01/13/21 05:30 01/13/21 06:20 Sodium Chloride 0.9% IV 01/14/21 05:29 30 mls/hr .Q24H KEITH Administration Pertinent History/Comorbid Conditions* Medical History (Updated 01/31/20 @ 10:09 by Tu Daley MD) Cyst near tailbone Dementia Mood disorder Nasal sinus congestion Surgical History (Updated 07/28/19 @ 11:28 by Ashely Black MD) H/O hernia repair History of ankle surgery History of testicular surgery Family History (Updated 06/07/19 @ 12:58 by Rylie Newsome LPN) Diabetes CAD (coronary artery disease) Cancer Hypertension Denies family history of Stroke Social History Smoking and tobacco status: never smoked Alcohol intake: never Lives independently: Yes Household members: spouse Marital status: Current occupational status: retired History of recent travel: No Current gender identity: Male Pertinent Exam Findings alert, oriented x 3, clear to auscultation bilaterally and regular rate & rhythm Recommendations Surgery/Procedure today Coding Level of Care Code Acute 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
[2021-01-13] MEDS: tranexamic acid 1,000 mg/10mL SDV 1000 MG IRRIGATION (07:57)
[2021-01-13] MEDS: ketorolac 30 mg/mL INJ IM (07:57)
[2021-01-13] MEDS: EPINEPHrine 1 mg/mL INJ XX (07:57)
--- NOTE | 2021-01-13 07:59 | P.ANESUD_ITS ---
Pre-Anesthetic Update Pre-Anesthetic Assessment: Date of Surgery/Procedure: 01/13/21 Preop Monserrat gnosis: Osteoarthritis left knee Proposed Procedure: Operation Date: 01/13/21 07:00 Proposed Procedures p left Total Knee Arthroplasty 84776 m17.12(Left) - Alejandro Campos MD Any changes to Pre-Anesthetic Assessment?: No Last Intake: Intake Last Liquid Date 01/12/21 Last Liquid Time 17:30 Last Solid Date 01/12/21 Last Solid Time 17:30 Vitals: Temperature 98.2 F 01/13/21 05:57 Temperature Source Temporal Artery S can 01/13/21 05:57 Pulse Rate 59 L 01/13/21 05:57 Respiratory Rate 18 01/13/21 05:57 Blood Pressure 115/73 01/13/21 05:57 Blood Pressure Nette n 87 01/13/21 05:57 Pulse Oximetry 98 01/13/21 05:57 Oxygen Delivery Me thod 01/13/21 05:57 Exam: Pre-Anes Outpt Exam: alert, oriented x 3, clear to auscultation bilaterally and regular rate & rhythm Other Pertinent Information: Other Pertinent Information: SAB with adductor blk Cardiac Studies: No Data to Display
--- NOTE | 2021-01-13 08:00 | ANES.PROC ---
Anesthesia Procedures Procedure/Date: 01/13/21 Nerve Block ^: Nerve Block 1: Main Anesthesia: spinal anesthesia block Time Out Performed: Yes Consent: requested by attending/covering physician, from patient, risks and benefits reviewed and patient agrees to proceed Nerve block location: adductor canal (left) Anesthesia monitors applied: pulse oximetry, EKG, BP cuff and oxygen Nerve block position: supine Anesthetic Used: ropivicaine 0.5% Amount of anesthesia used (mL): 20 Ultrasound used to: recognize landmarks Nerve Stimulator Used?: No Interscalene/Femoral BLK: 4 stimuplex 21 g needle used for position and inplane approach and visualize local anesthetic spread Injection: neg aspiration of heme Patient Tolerated Procedure: well Complications: none
--- NOTE | 2021-01-13 09:05 | P.OP_ITS ---
Operative Report Date of procedure: January 13, 2021 Pre-op Diagnosis: Osteoarthritis left knee Post-op diagnosis: same Post-op Findings: Same Procedure Done: Left total knee arthroplasty Pathology: none sent Surgeon: Alejandro Campos Anesthesia: Nerve Block (Spinal, adductor canal block) Estimated blood loss (mL): 200 Findings: The patient had eburnated bone over the medial femoral condyle, medial tibial plateau, and patella Condition: stable Disposition: PACU Procedure: The patient was taken to the operating room. Patient was given 1 g of tranexamic acid . The above anesthesia provided by the anesthesia service. A timeout was performed. The patient was prepped and draped in the usual fashion with the lower extremity exposed. A anterior incision was made, midline, from a point proximal to the patella to the distal tibial tubercle. The knee was entered through a medial parapatellar approach. The patella could be displaced laterally and the knee flexed. The patellar fat pad was resected to provide better visibility. Retractors were placed medially and laterally adjacent to the tibial plateau. The femoral canal was drilled in line with the longitudinal axis of the femur. Intramedullary femoral guide for used to make a distal femoral cut in 5 degrees of valgus, resecting 8 mm from the more prominent condyle. Next the extra medu llary tibial guide was placed in alignment with the longitudinal axis of the tibia. The cutting guides were set to remove just over 9 mm from the high tibial plateau. The proximal tibia was then cut. The femoral measuring guide was then placed over the distal femur. Rotation was verified checking the relationship of the guide to the condyle and the trochlear groove. The femur was measured and cut for the desired femoral component. The desired tibial baseplate was then chosen. A trial reduction with the femur tibial baseplate and polyethylene was done, assuring that the knee was stable throughout full motion. Ligament balancing involved a release of nothing more than the deep medial collateral ligament and removal of medial osteophyte.The tibia was prepared for the tibial baseplate. Patellar thickness was then measured. The patella was cut removing articular cartilage and prepared for appropriate size patellar button. surfaces were cleaned with a gentamicin/tranexamic acid solution. The femur tibia and patella were then press-fit into place. The posterior capsule and collateral ligaments were then injected with a solution of 100 mL of 0.2% ropivacaine, 1 mL of a 1:1000 epinephrine solution, 30 mg of Toradol, and 1 g of tranexamic acid. final polyethylene component was then snapped into place into the tibia. The extensor retinaculum was closed with a running 1 Stratafix.. The subcutaneous tissues were closed with 2-0 Vicryl and the skin was closed with a running 4-0 Stratafix. The wound was covered with a Dermabond Prinio dressing. It was covered with 4xrs and a compressive Tubigauae was applied. The patient was taken to recovery room in stable condition. [employer] total knee arthroplasty components were used includin) Size 6 triathalon cruciate retaining femoral component 2) Size 6 Tritanium tibial component 3) 35 mm /10 mm thickness Tritanium asymetric patella 4) Size 6/9 mm thickness CR tibial bearing insert
--- NOTE | 2021-01-13 09:19 | XR_ITS ---
WS: [id number] XR knee LT 1-2V 28097 REASON FOR EXAM: Status post left knee replacement FINDINGS: Three-part total right knee arthroplasty. Prosthetic complements are in proper position and alignment. No bony abnormality. XR/XR knee LT 1-2V 46125 IMPRESSION: Total right knee arthroplasty with no abnormality.
[2021-01-13] MEDS: sodium chloride 0.9% 1,000 ML 100 ML IV ×2 (10:16→21:19)
[2021-01-13] MEDS: acetaminophen 500 mg Tablet 1000 MG PO ×2 (10:18→17:11)
[2021-01-13] MEDS: CELEcoxib 200 mg Capsule PO ×2 (10:18→22:10)
[2021-01-13] MEDS: oxyCODONE 5 mg IR Tab/Cap PO ×2 (12:56→20:16)
--- NOTE | 2021-01-13 15:41 | ANE.PACU2 ---
Inpatient post-anesthesia follow up: Airway intact: Yes Vital signs: Temperature 97.5 F Pulse Rate 53 Respiratory Rate 16 Blood Pressure 107/65 Pulse Oximetry 99 Oxygen Delivery Me thod Room Air Oxygen Flow Rate Fraction of Inspir ed Oxygen Hydration adequate: Yes Nausea and vomiting: No Pain level: 2 Mental status: Baseline
[2021-01-13] MEDS: sennosides-docusate Tablet 2 TAB PO (17:05)
[2021-01-13] MEDS: gabapentin 300 mg Capsule PO (17:10)
[2021-01-13] MEDS: fluticasone nasal spray 16gm Btl 2 SPRAY INTRANASAL (17:12)
--- NOTE | 2021-01-13 18:20 | PC.NURSE ---
SHIFT SUMMARY PATIENT HAS DONE WELL TODAY. PAIN WELL CONTROLLED. DID WELL WITH PHYSICAL THERAPY. SURGICAL DRESSING IS C/D/I. ICE IN PLACE. GOOD PO INTAKE AND URINE OUTPUT. PATIENT BECAME DIAPHORETIC, WEAK, AND HYPOTENSIVE WHILE SITTING IN THE CHAIR THE FIRST TIME GETTING UP AFTER SURGERY. THIS NURSE HELPED PATIENT BACK TO BED AND BLOOD PRESSURE CORRECTED. PATIENT DOES HAVE BRADYCARIDA AND HYPOTENSION AT BASELINE. CURRENTLY RESTING IN BED EATING SUPPER. NO COMPLAINTS AT THIS TIME.
[2021-01-13] MEDS: quetiapine 25 mg Tablet 50 MG PO (20:14)
[2021-01-14] VITALS: BP 93/52; PULSE 49; RESP 17; TEMP 36.4; O2SAT 95
[2021-01-14 02:33] LABS: Hemoglobin 11.2 g/dL (11.7-16.6)
[2021-01-14] MEDS: acetaminophen 500 mg Tablet 1000 MG PO ×2 (02:36→10:20)
[2021-01-14 04:00] VITALS: BP 97/58; PULSE 52; RESP 18; TEMP 36.6; O2SAT 96
--- NOTE | 2021-01-14 05:31 | PC.NURSE ---
SHIFT SUMMARY Has had a good night and rested well. c/o minimal pain in left knee. No edema noted and moves extremity quite well for just being newly postop. Received po OXYIR X1 for pain. IV infusing at 100ml/hr rate and receiving postop IV antibiotics as ordered. Is pleasant and is hoping to go home today. Good urine output from Emanuel and taking po well. Emanuel will be removed this am
[2021-01-14 07:41] VITALS: BP 126/86; PULSE 53; RESP 17; TEMP 36.4; O2SAT 96
--- NOTE | 2021-01-14 08:12 | PM.DCS ---
Discharge Providers Date of Admission: 01/13/21 09:32 Date of Discharge: January 14, 2021 Attending Provider at Admission: Alejandro Campos MD Attending Provider at Discharge: Alejandro Campos MD Primary Care Provider: Cece Che MD Diagnoses at Discharge Discharge Diagnosis (1) Osteoarthritis of left knee: Status: Resolved (2) Status post left knee replacement: Status: Acute Reason for Visit Reason for Visit: left total knee arthroplasty Hospital Course Hospital Course The patient tolerated surgery well. They remained hemodynamically stable. They was begun on aspirin and [] for DVT prophylaxis. The patient was mobilized with therapy beginning the day of surgery and by the first postoperative day independent with the walker. As the pain was adequately controlled and they were fully mobile they were discharged home. Physical Exam Narrative: EXAM NARRATIVE: On the day of discharge his knee incision was clean. They had no drainage. There is minimal swelling in the thigh and knee and the calf. No distal neurovascular deficits were noted Urinary Catheter Management^: Emanuel: Cath Placed During This Visit: yes, but has since been removed by the nurse Reason for Continuing Indwelling Catheter: Decision to DC Catheter Urinary Catheter Date of Insertion: 01/13/21 Urinary Catheter Time of Insertion: 07:20 Date Urinary Catheter Removed: 01/14/21 Time Urinary Catheter Discontinued: 06:58 Discharge Data Data Completed and Pending: Completed Studies During Hospitalization Category Date Time Status XR knee LT 1-2V 7 3560 Routine Exams 01/13/21 09:19 Completed Labs from last 24 hours 01/14/21 02:15 Hgb 11.2 L Vitals: Last Vital Signs Temp 97.5 F L 01/14/21 07:41 Pulse 53 L 01/14/21 07:41 Resp 17 01/14/21 07:41 BP 126/86 01/14/21 07:41 Pulse Ox 96 01/14/21 07:41 Discharge Plan Discharge Patient Disposition: Home Condition: Stable Prescriptions: New oxycodone 5 mg Tablet 5 mg PO Q4H PRN (Reason: Moderate Pain) 7 Days Qty: 40 RF: 0 celecoxib 200 mg Capsule 200 mg PO Q12H 14 Days Qty: 28 RF: 0 gabapentin 300 mg Capsule 300 mg PO BID 7 Days Qty: 14 RF: 0 acetaminophen 500 mg Tablet 1,000 mg PO Q8H 14 Days Qty: 84 RF: 0 Continued cholecalciferol (vitamin D3) [Vitamin D3] 25 mcg (1,000 unit) capsule 25 mcg PO DAILY RF: 0 aspirin [Aspir-81] 81 mg tablet,delayed release (DR/EC) 40.5 mg PO DAILY RF: 0 hydroxyurea 500 mg capsule 500 mg PO DIRECTED RF: 0 fludrocortisone 0.1 mg tablet 0.1 mg PO DAILY RF: 0 fluticasone propionate 50 mcg/actuation spray,suspension 2 spray intranasal BID Qty: 16 RF: 3 mupirocin 2 % ointment 1 applic topical BID Qty: 15 RF: 0 quetiapine 50 mg tablet 50 mg PO BEDTIME RF: 0 cyanocobalamin (vitamin B-12) 500 mcg Tablet 500 mcg PO DAILY RF: 0 zinc 25 mg Tablet 25 mg PO DAILY RF: 0 Discharge Orders: Discharge Order (Routine); Ordered 01/14/21 Ordered By: Alejandro Campos Other Ambulatory Orders: DME: Walker (Order) Location: None Selected Ordered By: Alejandro Campos Referrals: [facility] Home Care [Other] () Alejandro Campos MD [Physician] - 01/17/21 9:00 am Discharge Diet: Advance as tolerated Discharge Activity: Limit activity as instructed Patient Instructions: Opioid Safety Activity Restrictions/Additional Instructions: Okay to shower Keep Tubigauze sleeve in place for swelling. Okay to remove for hygiene. Apply FirstIce up to 20 min/hr for pain and swelling Take Celebrex twice a day for the next 15 days for pain , discontinue other anti-inflammatories Take Neurontin twice a day for 7 days. Take Tylenol 500mg (1-2 tabs) as needed 3 times a day for mild pain take oxycodone for breakthrough pain. Exercises per physical therapy. May weight-bear as tolerated on total knee arthroplasty Discharge Attestations Time Spent in Discharge Care*: other Quality Metrics Clinical Quality Measures During this hospital stay, did patient experience: None Coding Level of Care Code Acute g [facility] note Diagnoses Osteoarthritis of left knee M17.12 Status post left knee replacement Z96.652
[2021-01-14] MEDS: aspirin 81 mg EC Tablet 40.5 MG PO (08:38)
[2021-01-14] MEDS: sennosides-docusate Tablet 2 TAB PO (08:38)
[2021-01-14] MEDS: gabapentin 300 mg Capsule PO (08:38)
[2021-01-14 09:40] VITALS: PULSE 77; RESP 18; O2SAT 98
--- NOTE | 2021-01-14 10:18 | PC.CHAP ---
Pastoral Care Encounter/Spiritual Assessment Type of Contact [] Declined aviation technician aircraft visit [] Patient/Family/Request visit [] Outpatient visit [] Follow-up visit [] Physician referral [] Code/Alert [] Routine visit [] Staff referral [] Actively dying [] Patient sleeping [] Family support [] [] Out of room [] Palliative care [] [x] Receiving care in room [] Pre-surgical visit [] Trauma [] Long length of stay [] ICU visit [] Other: Relational/Emotional Strength [] Patient feels connected with others/family/visitors/staff [] Distress [] Loneliness/isolation [] Abandonment Spirituality of Patient [] Person of Kalani [] Attends Spiritism of their Kalani [] Believes in Prayer [] Reads Bible or Yazdanism materials [] There are Spiritual issues to be addressed Education Program Coordinator Interventions [] Prayer [] Active listening [] Non-anxious presence [] Spiritual/emotional support [] Crisis/trauma care [] Spiritual counseling [] Bereavement support [] Provided bereavement packet [] Provided Bible/devotional materials [] Provided toy/stuffed animal, coloring book to patient or family member [] Provided Communion [] Anointing/[place] [] Salvation [] Completed spiritual assessment [] Other: Impact on Illness or Injury [] Angry [] Fearful [] Anxious [] Often cries [] Exhaustion [] Unable to work [] Unable to attend buddhism [] Unable to walk/stand [] Unable to read [] Unable to drive [] Unable to eat/drink [] Unable to sleep [] Unable to be with family [] Patient intubated [] Other: Summary Time spent with patient
[2021-01-14] MEDS: oxyCODONE 5 mg IR Tab/Cap PO (10:20)
[2021-01-14] MEDS: CELEcoxib 200 mg Capsule PO (10:21)
[2021-01-14 11:04] VITALS: BP 126/86; PULSE 77; RESP 18; TEMP 36.4; O2SAT 98
--- NOTE | 2021-01-14 11:30 | PC.OT ---
OT EVALUATION ORDERS RECEIVED; PATIENT DISCHARGED BEFORE EVALUATION COULD BE COMPLETED.
--- NOTE | 2021-01-15 12:28 | PC.SOCIAL ---
discharge follow up call made, spoke with patient. patient is taking all new medications as prescribed. patient is getting relief from pain with these medications. patient is using walker and tolerating well. discussed wound care, that shower is ok just not to soak and leave tubigauze in place except for hygiene. discussed ice, 20 mins on every hour and to keep elevating to reduce swelling and pain. patient verbalizes understanding. patient is aware of follow up appointment with dr. lane on 01-17. [facility] is visiting patient today.
--- NOTE | 2021-01-17 14:17 | PC.RESP ---
PULMONARY REHAB INFORMATION SENT TO PATIENT.
== END 2021-01-14 11:05 | disposition home or self-care (01) ==
LOC: MEDSURG 09:32
PROVIDERS: Anesthesiology; Admitting Provider Orthopaedic Surgery; PCP Family Medicine; Visit Provider Orthopaedic Surgery
PROC: (CPT 27447; principal; 2021-01-13 07:00)
DX: M17.12 Unilateral primary osteoarthritis, left knee (principal); Z79.82 Long term (current) use of aspirin; F03.90 Unspecified dementia, unspecified severity, without behavioral disturbance, psychotic disturbance, mood disturbance, and anxiety; Z82.49 Family history of ischemic heart disease and other diseases of the circulatory system; Z83.3 Family history of diabetes mellitus; J44.9 Chronic obstructive pulmonary disease, unspecified
CPT/HCPCS: 27447; 36415; 51702; 64447; 73560; 76942; 85018; 97110; 97116; 97161; C1776; G0378; J0171; J0690; J1580; J1885; J2250; J2370; J2704; J2795; J7030

== ENCOUNTER 2021-02-13 07:54 | Outpatient (CLI) | payer OTHER, SELFPAY ==
[2021-02-13 08:52] LABS: Basophils % 0.4 %; Eosinophils # 0.1 10^3/uL (0.0-0.8); Eosinophils % 2.8 %; Hemoglobin 12.6 g/dL (11.7-16.6); Lymphocytes # 1.4 10^3/uL (0.8-4.8); Lymphocytes % 27.8 %; Mean Corpuscular HGB Conc 32.3 g/dL (30.0-36.0); Mean Corpuscular Hemoglobin 34.9 pg (28.0-34.0); Mean Platelet Volume 9.6 fL (7.4-10.4); Monocytes # 0.7 10^3/uL (0.2-0.9); Monocytes % 14.1 %; Neutrophils # 2.52 10^3/uL (1.8-7.7); Neutrophils % 50.1 %; Nucleated Red Blood Cells % 0 %; Platelet Count 515 10^3/cmm (130-400); Red Blood Count 3.61 10^6/uL (4.1-5.3); Red Cell Distribution Width 15.3 % (12.1-15.1)
[2021-02-13 09:03] LABS: Alanine Aminotransferase 11 U/L (0-41); Albumin Level 3.9 g/dL (3.5-5.2); Alkaline Phosphatase 184 IU/L (40-130); Anion Gap 12.6 (5-19); Aspartate Amino Transferase 14 U/L (0-40); Blood Urea Nitrogen 14 mg/dL (8-23); Calcium 9.5 mg/dL (8.5-10.5); Carbon Dioxide 28 mmol/L (22-29); Chloride 102 mmol/L (98-107); Globulin 2.6 g/dL (1.3-4.6); Glucose 62 mg/dL (65-115); Osmolality Calculated 286 mOsm/kg (285-295); Potassium 3.6 mmol/L (3.5-5.1); Sodium 139 mmol/L (136-145); Total Bilirubin 0.6 mg/dL (0.15-1.2); Total Protein 6.5 g/dL (6.6-8.7)
--- NOTE | 2021-02-13 09:39 | ONC FU_ITS ---
Dr. Snow follow up note Patient: Brennon Melendez Unit #: [id number]: [id number] Dicatated By: Wong Snow M.D.Date of Visit:Feb 13, 2021 Onc Med Follow-up/Prog Note History of Present Illness: Mr. Brennon Melendez, is a 70-year-old gentleman with long-standing history of thrombocytosis, as per patient initially he was told about high. Count in July 2018 but his platelet count has been high for a while prior to that. But recently his physician got concerned and other than that no history of headaches or blurred vision or double vision no history of chest pain or shortness of breath no history of night sweats fever chills no history of peripheral lymphadenopathy. No history of abdominal fullness. No history of abnormal bleeding. No history of smoking but history of COPD, sleep apnea, hyperlipidemia, chronic neck and back pain. His labs checked on 04/19/2019 showed white blood count 11.9, hemoglobin 15.4 crit 46.6 platelets 865,[address] scan of chest done on 04/27/2019 showed few very small densities in both lungs, atherosclerotic changes involving thoracic aorta with mild aneurysm of ascending aorta which has diameter 4.3 cm. Or myelomatous disease. A few mediastinal lymph nodes contain calcification. Chest x-ray done on 04/06/2019 showed hyperinflated lungs with emphysema. Ultrasound abdomen done on 05/23/2019 showedSpleen size 4.2 x 5.1 x 11.8 cm, liver is enlarged measuring 19.6 cm Clau 2 mutation, detected Started on hydroxyurea 500 mg by mouth daily and aspirin 81 mg by mouth daily on 05/23/2019, for essential thrombocytosis Hydroxyurea 500 mg p.o. daily was reduced to 500 milligram daily for 5 days/week on May 01, 2020 As platelet count continue to improve Came for follow-up, denies any specific complaints except recently underwent left knee replacement now recovering well. No fever chills, no nausea or vomiting, no diarrhea constipation, no headaches, tolerating hydroxyurea 5 days a week along with baby aspirin well Medications: Albuterol Sulfate 1 ((2.5 mg/3ml) 0.083%) Nebulization solution Inhalation daily, Albuterol Sulfate 1 Puff(s) (of 108 (90 base) mcg/act) Aerosol Powder, Breath Activated Inhalation daily, Aspirin 1 Tablet (of 81 mg) Oral daily, CBD 1 Capsule (of 5 mg) Oral daily, Cholecalciferol 1 Tablet (of 25 mcg ) Oral daily, guaiFENesin 10 mL (of 100 mg/5mL) Syrup Oral PRN, Hydroxyurea 1 Capsule (of 500 mg) Oral daily, Metamucil 1 Capsule Oral daily, QUEtiapine Fumarate 1 Tablet (of 100 mg) Oral daily, Symbicort 1 Puff(s) (of 80-4.5 mcg/act) Aerosol Inhalation daily Allergies: No Known Allergies. Review of Systems: Review of Systems is not available for this patient. Vital Signs: Performed on Feb 13, 2021 08:26 Height - 71.00 in Weight - 179.4 lbs (LOW) BSA - 2.01 sq.m BMI - 25.02 Temperature - 97.6 F (LOW) Pulse - 55 /min (LOW) Respiration - 18 /min BP - 113/70 mm(hg) O2 Sat - 99 % Pain - 2 Fatigue - 0 Performance Status: 2 - Ambulatory/capable of all self-care, unable to perform any work activities. Up and about more than 50% of waking hours. (ECOG) Physical Examination: ENMT - No mouth sores, no thrush, no jaundice, Respiratory - Lungs are clear to auscultation, Cardiovascular - Regular rate and rhythm of heart, Abdomen - Soft, bowel sounds present, Extremities - Left knee status post replacement with some swelling but surgical scar shows no discharge or overlying skin changes. Lab/Imaging: Most recent lab results are not available for this patient. 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 Plan: Discussed with patient regarding his labs white blood count 5000 hemoglobin 12.6, hematocrit 39 platelets 515,000 CMP within normal limits Clinically, patient doing well with no new signs symptom except recently underwent left knee replacement now recovering well his follow-up CBC shows mild progression his essential thrombocytosis while on hydroxyurea 500 mg p.o. daily Wednesday through Wednesday per week, etiology of progression could be due to inflammation in left knee due to replacement, at this point we will continue to monitor with same dose of hydroxyurea and patient will return to clinic in 1 month with CBC, if there is no improvement or further progression in his isolated thrombocytosis, will consider increasing hydroxyurea dose to 500 mg p.o. daily. In the meantime patient will continue with daily aspirin. Signed By: Wong Snow M.D. <<Signature on File>>
== END 2021-02-13 07:55 | disposition home or self-care (01) ==
PROVIDERS: PCP Family Medicine; Visit Provider Internal Medicine Hematology & Oncology
DX: D47.3 Essential (hemorrhagic) thrombocythemia (principal); J43.9 Emphysema, unspecified; I71.2 Thoracic aortic aneurysm, without rupture; Z79.899 Other long term (current) drug therapy
CPT/HCPCS: 36415; 80053; 85025; 99214

== ENCOUNTER 2021-03-14 09:43 | Outpatient (CLI) | payer OTHER, SELFPAY ==
[2021-03-14 10:19] LABS: Basophils % 0.4 %; Eosinophils # 0.2 10^3/uL (0.0-0.8); Hematocrit 42.9 % (42.0-52.0); Hemoglobin 14.1 g/dL (11.7-16.6); Lymphocytes # 1.4 10^3/uL (0.8-4.8); Mean Corpuscular HGB Conc 32.9 g/dL (30.0-36.0); Mean Corpuscular Hemoglobin 35.6 pg (28.0-34.0); Mean Corpuscular Volume 108.3 fl (80-94); Mean Platelet Volume 9.6 fL (7.4-10.4); Monocytes # 0.7 10^3/uL (0.2-0.9); Monocytes % 8.9 %; Neutrophils # 5.64 10^3/uL (1.8-7.7); Neutrophils % 67.7 %; Nucleated Red Blood Cells % 0 %; Platelet Count 533 10^3/cmm (130-400); Red Blood Count 3.96 10^6/uL (4.1-5.3); Red Cell Distribution Width 14.4 % (12.1-15.1); White Blood Count 8.3 10^3/uL (4.0-10.0)
--- NOTE | 2021-03-14 11:53 | ONC FU_ITS ---
Dr. Snow follow up note Patient: Brennon Melendez Unit #: [id number]: 1950 Dicatated By: Wong Snow M.D.Date of Visit:Mar 14, 2021 Onc Med Follow-up/Prog Note History of Present Illness: Mr. Brennon Melendez, is a 71-year-old gentleman with long-standing history of thrombocytosis, as per patient initially he was told about high. Count in July 2018 but his platelet count has been high for a while prior to that. But recently his physician got concerned and other than that no history of headaches or blurred vision or double vision no history of chest pain or shortness of breath no history of night sweats fever chills no history of peripheral lymphadenopathy. No history of abdominal fullness. No history of abnormal bleeding. No history of smoking but history of COPD, sleep apnea, hyperlipidemia, chronic neck and back pain. His labs checked on 04/19/2019 showed white blood count 11.9, hemoglobin 15.4 crit 46.6 platelets 865,[address] scan of chest done on 04/27/2019 showed few very small densities in both lungs, atherosclerotic changes involving thoracic aorta with mild aneurysm of ascending aorta which has diameter 4.3 cm. Or myelomatous disease. A few mediastinal lymph nodes contain calcification. Chest x-ray done on 04/06/2019 showed hyperinflated lungs with emphysema. Ultrasound abdomen done on 05/23/2019 showedSpleen size 4.2 x 5.1 x 11.8 cm, liver is enlarged measuring 19.6 cm Clau 2 mutation, detected Started on hydroxyurea 500 mg by mouth daily and aspirin 81 mg by mouth daily on 05/23/2019, for essential thrombocytosis Hydroxyurea 500 mg p.o. daily was reduced to 500 milligram daily for 5 days/week on May 01, 2020 As platelet count continue to improve Came for follow-up, denies any specific complaints, no fever chills, no nausea or vomiting, no diarrhea constipation, no headaches, recovering from left knee replacement well. And tolerating hydroxyurea 500 mg p.o. daily Wednesday through Wednesday per week well Medications: Albuterol Sulfate 1 ((2.5 mg/3ml) 0.083%) Nebulization solution Inhalation daily, Albuterol Sulfate 1 Puff(s) (of 108 (90 base) mcg/act) Aerosol Powder, Breath Activated Inhalation daily, Aspirin 1 Tablet (of 81 mg) Oral daily, CBD 1 Capsule (of 5 mg) Oral daily, Cholecalciferol 1 Tablet (of 25 mcg ) Oral daily, guaiFENesin 10 mL (of 100 mg/5mL) Syrup Oral PRN, Hydroxyurea 1 Capsule (of 500 mg) Oral daily, Metamucil 1 Capsule Oral daily, QUEtiapine Fumarate 1 Tablet (of 100 mg) Oral daily, Symbicort 1 Puff(s) (of 80-4.5 mcg/act) Aerosol Inhalation daily Allergies: No Known Allergies. Review of Systems: Review of Systems is not available for this patient. Vital Signs: Performed on Mar 14, 2021 11:26 Height - 71.00 in Weight - 183.8 lbs (HIGH) BSA - 2.03 sq.m BMI - 25.64 Temperature - 97.9 F (LOW) Pulse - 71 /min Respiration - 18 /min BP - 102/66 mm(hg) O2 Sat - 98 % Pain - 0 Fatigue - 0 Performance Status: 0 - Fully active, able to carry on all predisease activities without restrictions. (ECOG) Physical Examination: ENMT - No mouth sores, no thrush, no jaundice, Respiratory - Lungs are clear to auscultation, Cardiovascular - Regular rate and rhythm of heart, Abdomen - Soft, bowel sounds present, Extremities - No visible edema, status post left knee replacement, with well-healed surgical scar. Lab/Imaging: Most recent lab results are not available for this patient. 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 Plan: Discussed with patient regarding his labs white blood count 8.3 hemoglobin 14.1 hematocrit 42.9 platelets 533,000 compared to 515,000 previously Clinically, patient doing well with no new signs symptoms, now recovering from left knee replacement, his follow-up labs shows persistent mild thrombocytosis, at this point we will increase his hydroxyurea dose to 500 mg p.o. daily from 5 days a week and then he will return to clinic in 1 month with CBC Signed By: Wong Snow M.D. <<Signature on File>>
== END 2021-03-14 09:44 | disposition home or self-care (01) ==
LOC: ONCMED 09:49
PROVIDERS: PCP Family Medicine; Visit Provider Internal Medicine Hematology & Oncology
DX: D47.3 Essential (hemorrhagic) thrombocythemia (principal); I71.4 Abdominal aortic aneurysm, without rupture; J44.9 Chronic obstructive pulmonary disease, unspecified; E78.5 Hyperlipidemia, unspecified; G47.33 Obstructive sleep apnea (adult) (pediatric); Z79.82 Long term (current) use of aspirin; Z96.652 Presence of left artificial knee joint; Z79.899 Other long term (current) drug therapy
CPT/HCPCS: 36415; 85025; 99214

== ENCOUNTER 2021-04-14 09:48 | Outpatient (CLI) | payer OTHER, SELFPAY ==
[2021-04-14 10:26] LABS: Basophils % 0.5 %; Eosinophils # 0.2 10^3/uL (0.0-0.8); Eosinophils % 1.9 %; Hemoglobin 14.6 g/dL (11.7-16.6); Lymphocytes # 1.2 10^3/uL (0.8-4.8); Lymphocytes % 15.1 %; Mean Corpuscular HGB Conc 32.4 g/dL (30.0-36.0); Mean Corpuscular Hemoglobin 34.6 pg (28.0-34.0); Mean Corpuscular Volume 106.6 fl (80-94); Mean Platelet Volume 9.6 fL (7.4-10.4); Monocytes # 0.7 10^3/uL (0.2-0.9); Monocytes % 8.5 %; Neutrophils # 5.45 10^3/uL (1.8-7.7); Neutrophils % 69.2 %; Nucleated Red Blood Cells % 0 %; Platelet Count 521 10^3/cmm (130-400); Red Blood Count 4.22 10^6/uL (4.1-5.3); Red Cell Distribution Width 14.7 % (12.1-15.1); White Blood Count 7.9 10^3/uL (4.0-10.0)
--- NOTE | 2021-04-14 16:36 | ONC FU_ITS ---
Dr. Snow follow up note Patient: Brennon Melendez Unit #: [id number]: 1950 Dicatated By: Wong Snow M.D.Date of Visit:Apr 14, 2021 Onc Med Follow-up/Prog Note History of Present Illness: Mr. Brennon Melendez, is a 70-year-old gentleman with long-standing history of thrombocytosis, as per patient initially he was told about high. Count in July 2018 but his platelet count has been high for a while prior to that. But recently his physician got concerned and other than that no history of headaches or blurred vision or double vision no history of chest pain or shortness of breath no history of night sweats fever chills no history of peripheral lymphadenopathy. No history of abdominal fullness. No history of abnormal bleeding. No history of smoking but history of COPD, sleep apnea, hyperlipidemia, chronic neck and back pain. His labs checked on 04/19/2019 showed white blood count 11.9, hemoglobin 15.4 crit 46.6 platelets 865,[address] scan of chest done on 04/27/2019 showed few very small densities in both lungs, atherosclerotic changes involving thoracic aorta with mild aneurysm of ascending aorta which has diameter 4.3 cm. Or myelomatous disease. A few mediastinal lymph nodes contain calcification. Chest x-ray done on 04/06/2019 showed hyperinflated lungs with emphysema. Ultrasound abdomen done on 05/23/2019 showedSpleen size 4.2 x 5.1 x 11.8 cm, liver is enlarged measuring 19.6 cm Clau 2 mutation, detected Started on hydroxyurea 500 mg by mouth daily and aspirin 81 mg by mouth daily on 05/23/2019, for essential thrombocytosis Hydroxyurea 500 mg p.o. daily was reduced to 500 milligram daily for 5 days/week on May 01, 2020 As platelet count continue to improve. Hydroxyurea on March 14, 2021 was increased to 500 mg p.o. daily Came for follow-up, denies any specific complaints, no fever chills, no nausea or vomiting, no diarrhea or constipation, no melena or hematochezia no hemoptysis or hematemesis, tolerating hydroxyurea 500 mg p.o. daily well Medications: Albuterol Sulfate 1 ((2.5 mg/3ml) 0.083%) Nebulization solution Inhalation daily, Albuterol Sulfate 1 Puff(s) (of 108 (90 base) mcg/act) Aerosol Powder, Breath Activated Inhalation daily, Aspirin 1 Tablet (of 81 mg) Oral daily, CBD 1 Capsule (of 5 mg) Oral daily, Cholecalciferol 1 Tablet (of 25 mcg ) Oral daily, guaiFENesin 10 mL (of 100 mg/5mL) Syrup Oral PRN, Hydroxyurea 1 Capsule (of 500 mg) Oral daily, Metamucil 1 Capsule Oral daily, QUEtiapine Fumarate 1 Tablet (of 100 mg) Oral daily, Symbicort 1 Puff(s) (of 80-4.5 mcg/act) Aerosol Inhalation daily Allergies: No Known Allergies. Review of Systems: Review of Systems is not available for this patient. Vital Signs: Performed on Apr 14, 2021 11:55 Height - 71.00 in Weight - 192.4 lbs (HIGH) BSA - 2.07 sq.m BMI - 26.83 Temperature - 97.4 F (LOW) Pulse - 66 /min Respiration - 18 /min BP - 131/76 mm(hg) O2 Sat - 98 % Pain - 0 Fatigue - 0 Performance Status: 0 - Fully active, able to carry on all predisease activities without restrictions. (ECOG) Physical Examination: ENMT - No mouth sores, no thrush, no jaundice, Respiratory - Lungs are clear to auscultation, Cardiovascular - Regular rate and rhythm of heart, Abdomen - Soft, bowel sounds present, Extremities - No visible edema. Lab/Imaging: Most recent lab results are not available for this patient. 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 Plan: Discussed with patient regarding his labs white blood count 7.9 hemoglobin 14.6 hematocrit 45 platelets 521,000 Clinically, patient doing well with no new signs symptom, his lab work-up shows improvement in his isolated thrombocytosis while on hydroxyurea 500 mg p.o. daily and his white blood count and hemoglobin are normal range, will continue with same and return to clinic in 2 months with CBC Signed By: Wong Snow M.D. <<Signature on File>>
== END 2021-04-14 09:49 | disposition home or self-care (01) ==
PROVIDERS: PCP Family Medicine; Visit Provider Internal Medicine Hematology & Oncology
DX: D47.3 Essential (hemorrhagic) thrombocythemia (principal); J43.9 Emphysema, unspecified; I71.4 Abdominal aortic aneurysm, without rupture; Z79.82 Long term (current) use of aspirin; Z79.899 Other long term (current) drug therapy
CPT/HCPCS: 36415; 85025; 99214

== ENCOUNTER → 2021-05-21 08:18 | Outpatient (BNVA) | payer OTHER, SELFPAY | PROVIDERS: PCP Family Medicine; Visit Provider Specialist | DX: F03.90 Unspecified dementia, unspecified severity, without behavioral disturbance, psychotic disturbance, mood disturbance, and anxiety (principal); E53.8 Deficiency of other specified B group vitamins; Z96.652 Presence of left artificial knee joint | CPT/HCPCS: 96116; 99214 ==

== ENCOUNTER → 2021-06-10 14:01 | Outpatient (BNVA) | payer OTHER, SELFPAY | PROVIDERS: PCP Family Medicine; Visit Provider Internal Medicine Critical Care Medicine | DX: J45.909 Unspecified asthma, uncomplicated (principal); R91.8 Other nonspecific abnormal finding of lung field; G31.83 Neurocognitive disorder with Lewy bodies; F02.80 Dementia in other diseases classified elsewhere, unspecified severity, without behavioral disturbance, psychotic disturbance, mood disturbance, and anxiety; D75.839 Thrombocytosis, unspecified; Z79.899 Other long term (current) drug therapy | CPT/HCPCS: 99213 ==

== ENCOUNTER 2021-06-12 07:28 | Outpatient (CLI) | payer OTHER, SELFPAY ==
[2021-06-12 08:18] LABS: Hematocrit 42.2 % (42.0-52.0); Hemoglobin 13.9 g/dL (11.7-16.6); Mean Corpuscular HGB Conc 32.9 g/dL (30.0-36.0); Mean Corpuscular Hemoglobin 35.3 pg (28.0-34.0); Mean Corpuscular Volume 107.1 fl (80-94); Mean Platelet Volume 9.4 fL (7.4-10.4); Platelet Count 547 10^3/cmm (130-400); Red Blood Count 3.94 10^6/uL (4.1-5.3); Red Cell Distribution Width 15.2 % (12.1-15.1); White Blood Count 9.9 10^3/uL (4.0-10.0)
[2021-06-12 09:18] LABS: Slide Review Slide Review Perform
[2021-06-12 09:19] LABS: Absolute Eosinophils 0.1 10^3/cmm (0.0-0.7); Absolute Neutrophil 7.1 10^3/cmm (1.4-6.5); Absolute Segmented Neutrophil 6.8 10/cmm (1.6-7.1); Anisocytosis Trace; Band Neutrophils Absolute 0.3 10^3/cmm (0.0-1.2); Eosinophils 2 %; Lymphocytes 15 %; Lymphocytes Absolute 1.5 10^3/cmm (1.2-3.4); Macrocytosis 1+; Monocytes Absolute 0.7 10^3/cmm (0.1-0.6); Platelet Estimate Increased (Normal); Segmented Neutrophils 69 %; Total Cells Counted 100 (0-100)
--- NOTE | 2021-06-14 10:31 | ONC FU_ITS ---
Cherie Clarke Progress Note Patient: Brennon Melendez Unit #: [id number]: 1950 Dicatated By: Cherie Clarke N.P.Date of Visit:Jun 12, 2021 Onc MED Follow-up/Prog Note Chief Complaint: thrombocytosis History of Present Illness: Mr. Brennon Melendez, is a 70-year-old gentleman with long-standing history of thrombocytosis, as per patient initially he was told about high. Count in July 2018 but his platelet count has been high for a while prior to that. But recently his physician got concerned and other than that no history of headaches or blurred vision or double vision no history of chest pain or shortness of breath no history of night sweats fever chills no history of peripheral lymphadenopathy. No history of abdominal fullness. No history of abnormal bleeding. No history of smoking but history of COPD, sleep apnea, hyperlipidemia, chronic neck and back pain. His labs checked on 04/19/2019 showed white blood count 11.9, hemoglobin 15.4 crit 46.6 platelets 865,[address] scan of chest done on 04/27/2019 showed few very small densities in both lungs, atherosclerotic changes involving thoracic aorta with mild aneurysm of ascending aorta which has diameter 4.3 cm. Or myelomatous disease. A few mediastinal lymph nodes contain calcification. Chest x-ray done on 04/06/2019 showed hyperinflated lungs with emphysema. Ultrasound abdomen done on 05/23/2019 showedSpleen size 4.2 x 5.1 x 11.8 cm, liver is enlarged measuring 19.6 cm Clau 2 mutation, detected Started on hydroxyurea 500 mg by mouth daily and aspirin 81 mg by mouth daily on 05/23/2019, for essential thrombocytosis Hydroxyurea 500 mg p.o. daily was reduced to 500 milligram daily for 5 days/week on May 01, 2020 As platelet count continue to improve. Hydroxyurea on March 14, 2021 was increased to 500 mg p.o. daily Patient presents today for follow-up. He denies weakness or fatigue. His appetite has been good. He denies fever, chills, night sweats. No shortness of breath, cough or chest pain. No GI problems or problems. No joint pain or muscle pain. No headaches or dizziness. He is currently on hydroxyurea 500 mg p.o. daily and tolerating it well. Review Of Symptoms: See above. Past Medical History: Anxiety Cervicalgia Chronic obstructive pulmonary disease Dementia with Lewy bodies Hyperlipidemia Obstructive sleep apnea Vitamin D deficiency Past Surgical History: Ankle repair Cyst removed from scrotum Hernia repair Pininal cyst Allergies: No Known Allergies. Medications: Albuterol Sulfate 1 ((2.5 mg/3ml) 0.083%) Nebulization solution Inhalation daily Albuterol Sulfate 1 Puff(s) (of 108 (90 base) mcg/act) Aerosol Powder, Breath Activated Inhalation daily Aspirin 1 Tablet (of 81 mg) Oral daily CBD 1 Capsule (of 5 mg) Oral daily Cholecalciferol 1 Tablet (of 25 mcg ) Oral daily guaiFENesin 10 mL (of 100 mg/5mL) Syrup Oral PRN Hydroxyurea 1 Capsule (of 500 mg) Oral daily Metamucil 1 Capsule Oral daily QUEtiapine Fumarate 1 Tablet (of 100 mg) Oral daily Symbicort 1 Puff(s) (of 80-4.5 mcg/act) Aerosol Inhalation daily Family History: Mr. Melendez's mother at age 89: dementia. Mr. Melendez's father at age 92: lung cancer. Mr. Melendez has 1 brother who is alive. He has 2 sisters: 2 alive. Mr. Melendez's first sister's hypertension. Another sister's hypertension. Social History: Mr. Melendez is and he is retired. Mr. Melendez no longer smokes. He has no history of drinking. He has indicated exposure to the following products: chewing tobacco. Physical Examination: Performed on Jun 12, 2021 10:31: Height - 71.00 in, Weight - 202.0 lbs (HIGH), BSA - 2.12 sq.m, BMI - 28.17, Temperature - 97.7 F (LOW), Pulse - 76 /min, Respiration - 16 /min, BP - 115/72 mm(hg), O2 Sat - 97 %, Pain - 0, and Fatigue - 1. Performance Status: 0 - Fully active, able to carry on all predisease activities without restrictions. (ECOG) Constitutional Alert, cooperative, oriented. Mood and affect appropriate. Appears close to chronological age. Well nourished. Well developed. Head Normocephalic; no scars. Eyes Conjunctivae and sclerae are clear and without icterus. Pupils are reactive and equal. Respiratory Lungs are clear to auscultation without rhonchi or wheezing. Cardiovascular Regular rate and rhythm of heart without murmurs, gallops or rubs. Abdomen Non-tender, non-distended, no masses, ascites or hepatosplenomegaly. Good bowel sounds. No guarding or rebound tenderness. Extremities No visible deformities, no cyanosis, clubbing or edema. Pulses 3+ and equal bilaterally. Musculoskeletal No tenderness or swelling, normal range of motion without obvious weakness. Psychiatric Alert and oriented times three. Coherent speech. Verbalizes understanding of our discussions today. Laboratory: Test performed on Jun 12, 2021 08:08 WBC 9.9 10 3/uL Manual Segs % 69 % Manual Bands % 3.0 % RBC 3.94 10 6/uL HGB 13.9 g/dL Manual Lymphs % 15 % Atypical Lymphs % 0.0 % HCT 42.2 % MCV 107.1 fl Total Cells Counted 100 Manual Monos % 7.0 % MCH 35.3 pg Manual Eos % 2 % MCHC 32.9 g/dL Manual Basos % 0.0 % RDW 15.2 % Metamyelocytes % 1.0 % Platelet Count 547 10 3/cmm MPV 9.4 fL Myelocytes % 3.0 % CBC Slide Review Slide Review Perform Anisocytosis Trace Macrocytosis 1+ Platelet Estimate Increased Manual Segs Abs 6.8 10/cmm Manual Bands Abs 0.3 10 3/cmm Manual Neutrophils Abs 7.1 10 3/cmm Manual Lymphocytes Abs 1.5 10 3/cmm Manual Monocytes Abs 0.7 10 3/cmm Manual Eosinophils Abs 0.1 10 3/cmm Manual Basophils Abs 0.0 10 3/cmm Impression: Essential thrombocytosis ,JAK2 mutation positive confirmed on 05/09/2019 Started on hydroxyurea/baby aspirin on 05/23/2019 COPD/emphysema, no history of smoking Ascending Aortic aneurysm. Plan: Labs were discussed with patient today with WBC at 9.9, hemoglobin 13.9, hematocrit 42.2, and platelet count at 547,000 which is increased from 521,000 at last visit. Patient is doing well states he is feeling well. There has been a gradual increase in his platelet count over the past few visits. We will increase his hydroxyurea to 1000 mg on Tuesdays and and 500 mg on all other days. He will return to the clinic in 1 month with a CBC and CMP. Signed By: Cherie Clarke N.P. <<Signature on File>>
== END 2021-06-12 07:29 | disposition home or self-care (01) ==
PROVIDERS: PCP Family Medicine; Visit Provider Nurse Practitioner Family
DX: D47.3 Essential (hemorrhagic) thrombocythemia (principal); J44.9 Chronic obstructive pulmonary disease, unspecified; I71.4 Abdominal aortic aneurysm, without rupture; G31.83 Neurocognitive disorder with Lewy bodies; F02.80 Dementia in other diseases classified elsewhere, unspecified severity, without behavioral disturbance, psychotic disturbance, mood disturbance, and anxiety; E78.5 Hyperlipidemia, unspecified; G47.33 Obstructive sleep apnea (adult) (pediatric); E55.9 Vitamin D deficiency, unspecified; Z79.899 Other long term (current) drug therapy
CPT/HCPCS: 36415; 85007; 85025; 99214

== ENCOUNTER 2021-07-14 12:51 | Outpatient (CLI) | payer OTHER, SELFPAY ==
[2021-07-14 13:18] LABS: Basophils % 0.5 %; Eosinophils # 0.1 10^3/uL (0.0-0.8); Eosinophils % 1.8 %; Hematocrit 42.7 % (42.0-52.0); Hemoglobin 14.2 g/dL (11.7-16.6); Lymphocytes # 1.2 10^3/uL (0.8-4.8); Lymphocytes % 20.5 %; Mean Corpuscular HGB Conc 33.3 g/dL (30.0-36.0); Mean Corpuscular Hemoglobin 36.1 pg (28.0-34.0); Mean Corpuscular Volume 108.7 fl (80-94); Mean Platelet Volume 9.6 fL (7.4-10.4); Monocytes # 0.6 10^3/uL (0.2-0.9); Monocytes % 9.8 %; Neutrophils # 3.81 10^3/uL (1.8-7.7); Neutrophils % 63.1 %; Nucleated Red Blood Cells % 0 %; Platelet Count 397 10^3/cmm (130-400); Red Blood Count 3.93 10^6/uL (4.1-5.3); Red Cell Distribution Width 15.1 % (12.1-15.1)
[2021-07-14 13:41] LABS: Alanine Aminotransferase 13 U/L (0-41); Alkaline Phosphatase 150 IU/L (40-130); Anion Gap 12.1 (5-19); Aspartate Amino Transferase 17 U/L (0-40); Blood Urea Nitrogen 20 mg/dL (8-23); Calcium 9.3 mg/dL (8.5-10.5); Carbon Dioxide 23 mmol/L (22-29); Chloride 105 mmol/L (98-107); Globulin 2.6 g/dL (1.3-4.6); Glucose 88 mg/dL (65-115); Osmolality Calculated 284 mOsm/kg (285-295); Potassium 4.1 mmol/L (3.5-5.1); Sodium 136 mmol/L (136-145); Total Bilirubin 0.4 mg/dL (0.15-1.2); Total Protein 6.6 g/dL (6.6-8.7)
--- NOTE | 2021-07-18 08:56 | ONC FU_ITS ---
Dr. Snow follow up note Patient: Brennon Melendez Unit #: [id number]: 1950 Dicatated By: Wong Snow M.D.Date of Visit:Jul 14, 2021 Onc Med Follow-up/Prog Note History of Present Illness: Mr. Brennon Melendez, is a 70-year-old gentleman with long-standing history of thrombocytosis, as per patient initially he was told about high. Count in July 2018 but his platelet count has been high for a while prior to that. But recently his physician got concerned and other than that no history of headaches or blurred vision or double vision no history of chest pain or shortness of breath no history of night sweats fever chills no history of peripheral lymphadenopathy. No history of abdominal fullness. No history of abnormal bleeding. No history of smoking but history of COPD, sleep apnea, hyperlipidemia, chronic neck and back pain. His labs checked on 04/19/2019 showed white blood count 11.9, hemoglobin 15.4 crit 46.6 platelets 865,[address] scan of chest done on 04/27/2019 showed few very small densities in both lungs, atherosclerotic changes involving thoracic aorta with mild aneurysm of ascending aorta which has diameter 4.3 cm. Or myelomatous disease. A few mediastinal lymph nodes contain calcification. Chest x-ray done on 04/06/2019 showed hyperinflated lungs with emphysema. Ultrasound abdomen done on 05/23/2019 showedSpleen size 4.2 x 5.1 x 11.8 cm, liver is enlarged measuring 19.6 cm Clau 2 mutation, detected Started on hydroxyurea 500 mg by mouth daily and aspirin 81 mg by mouth daily on 05/23/2019, for essential thrombocytosis Hydroxyurea 500 mg p.o. daily was reduced to 500 milligram daily for 5 days/week on May 01, 2020 As platelet count continue to improve. Hydroxyurea on March 14, 2021 was increased to 500 mg p.o. daily Patient presents today for follow-up. He denies weakness or fatigue. His appetite has been good. He denies fever, chills, night sweats. No shortness of breath, cough or chest pain. No GI problems or problems. No joint pain or muscle pain. No headaches or dizziness. He is currently on hydroxyurea 500 mg p.o. daily and tolerating it well., In June 2021 hydroxyurea was increased to 1000 mg on Wednesday and while continue with 500 mg p.o. daily on remaining days Came for follow-up, denies any specific complaints, no fever chills, no nausea or vomiting, no diarrhea or constipation, no melena hematochezia, no hemoptysis hematemesis, patient is tolerating hydroxyurea 500 mg p.o. daily except on Wednesday and when he takes 1000 mg. No headaches no blurred vision double vision, no shortness of breath no chest pain or fullness Medications: Albuterol Sulfate 1 ((2.5 mg/3ml) 0.083%) Nebulization solution Inhalation daily, Albuterol Sulfate 1 Puff(s) (of 108 (90 base) mcg/act) Aerosol Powder, Breath Activated Inhalation daily, Aspirin 1 Tablet (of 81 mg) Oral daily, CBD 1 Capsule (of 5 mg) Oral daily, Cholecalciferol 1 Tablet (of 25 mcg ) Oral daily, guaiFENesin 10 mL (of 100 mg/5mL) Syrup Oral PRN, Hydroxyurea 1 Capsule (of 500 mg) Oral daily, Metamucil 1 Capsule Oral daily, QUEtiapine Fumarate 1 Tablet (of 100 mg) Oral daily, Symbicort 1 Puff(s) (of 80-4.5 mcg/act) Aerosol Inhalation daily Allergies: No Known Allergies. Review of Systems: Review of Systems is not available for this patient. Vital Signs: Performed on Jul 14, 2021 14:27 Height - 71.00 in Weight - 206.6 lbs (HIGH) BSA - 2.14 sq.m BMI - 28.82 Temperature - 97.3 F (LOW) Pulse - 57 /min (LOW) BP - 125/75 mm(hg) O2 Sat - 97 % Pain - 0 Fatigue - 0 Performance Status: 0 - Fully active, able to carry on all predisease activities without restrictions. (ECOG) Physical Examination: ENMT - No mouth sores no thrush, no jaundice, Respiratory - Lungs are clear to auscultation, Cardiovascular - Regular rate and rhythm of heart, Abdomen - Soft, bowel sounds present, Extremities - No visible edema. Lab/Imaging: Test performed on Jun 12, 2021 08:08 WBC 9.9 10 3/uL Manual Segs % 69 % Manual Bands % 3.0 % RBC 3.94 10 6/uL HGB 13.9 g/dL Manual Lymphs % 15 % Atypical Lymphs % 0.0 % HCT 42.2 % MCV 107.1 fl Total Cells Counted 100 Manual Monos % 7.0 % MCH 35.3 pg Manual Eos % 2 % MCHC 32.9 g/dL Manual Basos % 0.0 % RDW 15.2 % Metamyelocytes % 1.0 % Platelet Count 547 10 3/cmm MPV 9.4 fL Myelocytes % 3.0 % CBC Slide Review Slide Review Perform Anisocytosis Trace Macrocytosis 1+ Platelet Estimate Increased Manual Segs Abs 6.8 10/cmm Manual Bands Abs 0.3 10 3/cmm Manual Neutrophils Abs 7.1 10 3/cmm Manual Lymphocytes Abs 1.5 10 3/cmm Manual Monocytes Abs 0.7 10 3/cmm Manual Eosinophils Abs 0.1 10 3/cmm Manual Basophils Abs 0.0 10 3/cmm Impression: Essential thrombocytosis ,JAK2 mutation positive confirmed on 05/09/2019 Started on hydroxyurea/baby aspirin on 05/23/2019 COPD/emphysema, no history of smoking Ascending Aortic aneurysm. Plan: Discussed with patient regarding his labs white blood count 6 hemoglobin 14.2 hematocrit 42.7 platelets 397,000 Clinically, patient doing well with no new signs symptoms just above disease progression infectious CBC shows excellent control of thrombocytosis now in normal range, on hydroxyurea 1000 mg on Wednesday and and 500 mg on remaining days., Will continue with same and he will return to clinic in 3 months with CBC Signed By: Wong Snow M.D. <<Signature on File>>
== END 2021-07-14 12:52 | disposition home or self-care (01) ==
PROVIDERS: PCP Family Medicine; Visit Provider Internal Medicine Hematology & Oncology
DX: D47.3 Essential (hemorrhagic) thrombocythemia (principal); J43.9 Emphysema, unspecified; I71.2 Thoracic aortic aneurysm, without rupture; Z79.82 Long term (current) use of aspirin; Z79.899 Other long term (current) drug therapy
CPT/HCPCS: 36415; 80053; 85025; 99214

== ENCOUNTER → 2021-08-25 12:25 | Outpatient (BNVA) | payer OTHER, SELFPAY | PROVIDERS: PCP Family Medicine; Visit Provider Specialist | DX: G30.9 Alzheimer's disease, unspecified (principal); F02.80 Dementia in other diseases classified elsewhere, unspecified severity, without behavioral disturbance, psychotic disturbance, mood disturbance, and anxiety | CPT/HCPCS: 82607; 99213; 99214 ==

== ENCOUNTER → 2021-09-16 10:15 | Outpatient (BNVA) | payer OTHER, SELFPAY | PROVIDERS: PCP Family Medicine; Visit Provider Surgery | DX: K40.90 Unilateral inguinal hernia, without obstruction or gangrene, not specified as recurrent (principal) | CPT/HCPCS: 99204 ==

== ENCOUNTER 2021-09-25 08:40 | Day surgery (SDC) | payer OTHER, SELFPAY ==
[2021-09-24 11:30] VITALS: BMI 27.8
[2021-09-25] VITALS (10 sets, daily range): BP systolic 113–142; BP diastolic 71–88; PULSE 55–89; RESP 14–18; TEMP 31–37.1; O2SAT 91–98
--- NOTE | 2021-09-25 09:02 | W.PM.OPSFHP ---
Same Day Surgery H&P Indication for Procedure/HPI DATE OF PROCEDURE: September 25, 2021 CHIEF COMPLAINT/INDICATIONFOR SURGICAL PROCEDURE: right inguinal hernia repair PREOP DIAGNOSIS: Osteoarthritis left knee PLANNED PROCEDURE: Operation Date: 09/25/21 10:20 Proposed Procedures p right inguinal hernia repair lap possible open 90822,[id number](Right) - Jermaine Garcia MD Medications/Allergies* Home Medications Medication Instructions Recorded Confirmed Type aspirin 81 mg tablet,delayed 40.5 mg PO DAILY 06/07/19 09/25/21 History release (Aspir-) cholecalciferol (vitamin D3) 25 25 mcg PO DAILY 06/07/19 09/25/21 History mcg (1,000 unit) capsule (Vitamin D3) fludrocortisone 0.1 mg tablet 0.1 mg PO DAILY 09/11/20 09/25/21 History cyanocobalamin (vitamin B-12) 500 500 mcg PO DAILY 12/30/20 09/25/21 History mcg tablet zinc 25 mg tablet 25 mg PO DAILY 12/30/20 09/25/21 History Allergies/Adverse Reactions Allergy/AdvReac Type Severity Reaction Status Date / Time No Known Allergies Allergy Verified 09/25/21 08:57 Pertinent History/Comorbid Conditions* Medical History (Updated 09/16/21 @ 10:50 by Jermaine Garcia MD) COPD (chronic obstructive pulmonary disease) Cyst near tailbone Dementia Mood disorder Nasal sinus congestion Surgical History (Updated 09/16/21 @ 10:50 by Jermaine Garcia MD) History of ankle surgery History of colonoscopy 2015 History of inguinal hernia repair Left 1985 History of knee replacement procedure of left knee 2020 History of testicular surgery Family History (Updated 06/07/19 @ 12:58 by Rylie Newsome LPN) Diabetes CAD (coronary artery disease) Cancer Hypertension Denies family history of Stroke Social History Smoking and tobacco status: never smoked Alcohol intake: never Lives independently: Yes Household members: spouse Marital status: Current occupational status: retired History of recent travel: No Current gender identity: Male Pertinent Exam Findings alert, oriented x 3 and regular rate & rhythm Recommendations Surgery/Procedure today Coding Level of Care Code [employer] T[employer] for [employer]
[2021-09-25] MEDS: sodium chloride 0.9% 1,000 ML 30 ML IV (09:26)
--- NOTE | 2021-09-25 10:20 | ANES.PREANE2 ---
Pre-Anesthetic Assessment Height/Weight: Height 1.8 m Weight 90.718 kg Temp Pulse Resp BP Pulse Ox 97.8 F 60 18 130/71 98 09/25/21 09:05 09/25/21 09:05 09/25/21 09:05 09/25/21 09:05 09/25/21 09:05 Preop Diagnosis: inguinal hernia Operation Date: 09/25/21 10:20 Proposed Procedures p right inguinal hernia repair lap possible open [id number],[id number](Right) - Jermaine Garcia MD Last intake: Intake Last Liquid Date 09/24/21 Last Liquid Time 17:00 Last Solid Date 09/24/21 Last Solid Time 14:00 Social No alcohol and No tobacco Exam alert, oriented x 3, clear to auscultation bilaterally and regular rate & rhythm Airway Submandibular: within normal limits Cervical ROM: within normal limits Mallampati: Class II Dentition: full Pulmonary Asthma and Chronic Obstructive Pulmonary Disease CV/HEM None reported Essential thrombocythemia None reported Hepatic None reported GI Gastroesophageal Reflux Disease Metabolic None reported Musc/skel None reported Neuropsych Dementia (Alzheimer Disease) Anesthetic Plan ASA status: 3 Anesthesia: General Medications/Allergies Home Medications Medication Instructions Recorded Confirmed Last Taken Type aspirin 81 mg tablet,delayed 40.5 mg PO DAILY 06/07/19 09/25/21 09/24/21 History release (Aspir-) cholecalciferol (vitamin D3) 25 25 mcg PO DAILY 06/07/19 09/25/21 09/24/21 History mcg (1,000 unit) capsule (Vitamin D3) fludrocortisone 0.1 mg tablet 0.1 mg PO DAILY 09/11/20 09/25/21 09/24/21 History fluticasone propionate 50 2 spray INTRANASAL BID #16 g 10/11/20 09/25/21 09/24/21 Rx mcg/actuation nasal spray,suspension cyanocobalamin (vitamin B-12) 500 500 mcg PO DAILY 12/30/20 09/25/21 09/24/21 History mcg tablet zinc 25 mg tablet 25 mg PO DAILY 12/30/20 09/25/21 09/24/21 History galantamine 8 mg tablet 8 mg PO BID #180 tab 08/25/21 09/25/21 09/24/21 Rx quetiapine 50 mg tablet 50 mg PO BEDTIME #90 tab 08/26/21 09/25/21 09/24/21 Rx hydroxyurea 500 mg capsule 500 mg PO DIRECTED 90 Days #90 09/15/21 09/25/21 09/24/21 Rx cap hydroxyurea 500 mg capsule 500 mg PO .COMPLEX #7 cap 09/22/21 09/25/21 09/24/21 Rx hydrocodone 5 mg-acetaminophen 325 1 tab PO Q6H PRN #20 tab 09/25/21 Unknown Rx mg tablet Allergies Allergy/AdvReac Type Severity Reaction Status Date / Time No Known Allergies Allergy Verified 09/25/21 08:57 Current Medications Generic Name Dose Route Start Last Admin Trade Name Freq PRN Reason Stop Dose Admin Sodium Chloride 1,000 mls @ 30 mls/hr 09/25/21 09:15 09/25/21 09:26 Sodium Chloride 0.9% IV 09/26/21 09:14 30 mls/hr .Q24H KEITH Administration PFSH Anesthesia Medical History COPD (chronic obstructive pulmonary disease) Cyst near tailbone Dementia Mood disorder Nasal sinus congestion Surgical History (Updated 09/25/21 @ 10:06 by Jermaine Garcia MD) History of ankle surgery History of colonoscopy 2016 History of inguinal hernia repair Left 1985 History of knee replacement procedure of left knee 2020 History of testicular surgery Status post right inguinal hernia repair (09/25/21) Family History Other CAD (coronary artery disease) Cancer Diabetes Hypertension Denies family history of Stroke Social History Smoking and tobacco status: never smoked Alcohol intake: never Lives independently: Yes Household members: spouse Marital status: Current occupational status: retired History of recent travel: No Current gender identity: Male Data Anesthesia Cardiac Studies: No Data to Display
[2021-09-25] MEDS: HYDROcodone-acetaminophen 5-325 mg Tablet 1 TAB PO (12:27)
--- NOTE | 2021-09-25 12:46 | ECG_ITS ---
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 Measurements Intervals [place] Rate: 38 P: 57 MT: 184 QRS: 3 QRSD: 108 T: 11 QT: 516 QTc: 414 Interpretive Statements SINUS BRADYCARDIA CRITICAL TEST RESULT Compared to ECG 12/30/2020 10:35:26 Sinus rhythm no longer present First degree AV block no longer present Electronically Signed On 09-26-2021 6:01:31 CDT by Terrence Mae M.D. [email or web address] [email or web address] hospitalUnited Fiber & Dataadena [email or web address].CogniTens/store/OM/[id number]
--- NOTE | 2021-09-25 12:51 | PC.NURSE ---
patient heart rate down to lower 40s and upper 30s. patient blood pressure 117/69 very sleepy informed anesthesia and Dr. Lutz notified and no new orders at this time. Will continue to monitor . Ekg obtained
--- NOTE | 2021-09-25 14:19 | PC.NURSE ---
patient feeling much better. Dr. caban feels he is stable for discharge. Patient hr 50-70 bp 133/78. No complaints of being dizzy when ambulating. Patient voided about 100cc. and patient feel ok about discharge home.
--- NOTE | 2021-09-25 15:19 | PM.OP ---
Operative Report Date of procedure: September 25, 2021 Pre-op diagnosis: Right inguinal hernia Post-op diagnosis: Right reducible indirect inguinal hernia Procedure done: Laparoscopic total extraperitoneal repair of right reducible indirect inguinal hernia with Surgimax 3D mesh measuring 16 x 10 cm Pathology: none sent Surgeon: Jermaine Garcia Anesthesia: General Condition: stable Disposition: PACU Procedure: The patient was taken to the operating room and intubated under general anesthesia After IV antibiotic was administered, the abdomen and external genitalia was prepped and draped in a sterile manner. Using a 15 blade, a 1.0 cm transverse incision was made infraumbilically on the right side. Subcutaneous tissue was divided using electrocautery and the anterior rectus sheath divided using an 11 blade. The rectus muscle was retracted laterally and the extraperitoneal space identified. A 11 mm port was placed and 12 mm of pneumoperitoneum was created. A 10 mm 30? scope was introduced and the retrorectus space was opened using the camera up to the pubic symphysis and 5 mm ports were placed in the midline, one 2-fingerbreadths above the pubic symphysis and the other midway between these two ports under direct visualization. Blunt dissection was carried out to open up the tissue in the midline and to the pubic symphysis, which was identified. The dissection was then carried laterally where the iliopubic tract was identified. There was no femoral, obturator or direct hernia noted. The inferior epigastric artery was identified and dissection was carried posterior to it and laterally, the space was opened up to the level of the umbilicus superior to the anterior superior iliac spine. I then proceeded to dissect out the spermatic cord and the indirect hernial sac was reduced . 16 x 10cm Surgimax 3D mesh was rolled and introduced through the 10 mm port and then rolled laterally and apposed well against the abdominal wall to cover the myopectineal orifice completely. 10 Cc of 0.25% Marcaine was infiltrated into the preperitoneal space. The extraperitoneal space was desufflated under direct visualization to ensure no slippage of hernial sac under the mesh. All ports were removed, the anterior rectus fascia at the infraumbilical port closed using figure of eight 0 Vicryl sutures, subcutaneous tissue approximated using 3-0 Vicryl sutures and skin at all three port sites were closed using running subcuticular 4-0 Monocryl sutures and Dermabond. 10 mL of 0.25% Marcaine was infiltrated at the port sites. The patient was stable throughout the procedure.
--- NOTE | 2021-09-25 16:38 | ANE.PACU2 ---
Inpatient post-anesthesia follow up: Airway intact: Yes Vital signs: Temperature 98.7 F Pulse Rate 55 Respiratory Rate 18 Blood Pressure 133/78 Pulse Oximetry 95 Oxygen Delivery Me thod Room Air Oxygen Flow Rate Fraction of Inspir ed Oxygen Hydration adequate: Yes Nausea and vomiting: No Pain level: 1 Mental status: Baseline Additional Comments: Patient having bouts of bradycardia down to 40s, otherwise asymptomatic, but felt slightly lightheaded at one point. Discussed with patient and to go to ER or call ambulance if patient starts feeling lightheaded. She has pulse ox at home that can help monitor patient's heart rate. Patient and felt comfortable in going home
== END 2021-09-25 14:25 | disposition home or self-care (01) ==
PROVIDERS: PCP Family Medicine; Visit Provider Surgery
PROC: (CPT 49650; principal; 2021-09-25 10:10)
DX: K40.90 Unilateral inguinal hernia, without obstruction or gangrene, not specified as recurrent (principal); J44.9 Chronic obstructive pulmonary disease, unspecified; K21.9 Gastro-esophageal reflux disease without esophagitis; F03.90 Unspecified dementia, unspecified severity, without behavioral disturbance, psychotic disturbance, mood disturbance, and anxiety; Z79.82 Long term (current) use of aspirin
CPT/HCPCS: 49650; 93005; C1781; J1100; J2370; J2405; J2704; J2710; J3010; J3490; J7030

== ENCOUNTER → 2021-10-14 08:50 | Outpatient (BNVA) | payer OTHER, SELFPAY | PROVIDERS: PCP Family Medicine; Visit Provider Surgery | DX: Z98.890 Other specified postprocedural states (principal); Z87.19 Personal history of other diseases of the digestive system | CPT/HCPCS: 99212 ==

== ENCOUNTER 2021-10-21 08:54 | Oncology outpatient (recurring) (ONCR) | payer OTHER, SELFPAY | END 2021-11-09 23:59 | disposition home or self-care (01) | PROVIDERS: PCP Family Medicine; Visit Provider Internal Medicine Hematology & Oncology | DX: D75.839 Thrombocytosis, unspecified (principal); Z79.899 Other long term (current) drug therapy | CPT/HCPCS: 36415; 80053; 85025; 99214 ==

== ENCOUNTER 2021-12-01 07:50 | Oncology outpatient (recurring) (ONCR) | payer OTHER, SELFPAY ==
[2021-12-01 08:14] LABS: Basophils % 0.4 %; Eosinophils # 0.1 10^3/uL (0.0-0.8); Eosinophils % 1.8 %; Hematocrit 44.3 % (42.0-52.0); Hemoglobin 14.8 g/dL (11.7-16.6); Lymphocytes # 1.2 10^3/uL (0.8-4.8); Lymphocytes % 17.9 %; Mean Corpuscular HGB Conc 33.4 g/dL (30.0-36.0); Mean Corpuscular Hemoglobin 37.5 pg (28.0-34.0); Mean Corpuscular Volume 112.2 fl (80-94); Monocytes # 0.4 10^3/uL (0.2-0.9); Monocytes % 5.4 %; Neutrophils # 4.75 10^3/uL (1.8-7.7); Neutrophils % 70.6 %; Nucleated Red Blood Cells % 0 %; Platelet Count 360 10^3/cmm (130-400); Red Blood Count 3.95 10^6/uL (4.1-5.3); Red Cell Distribution Width 13.6 % (12.1-15.1); White Blood Count 6.7 10^3/uL (4.0-10.0)
[2021-12-01 08:28] LABS: Alanine Aminotransferase 20 U/L (0-41); Albumin Level 3.8 g/dL (3.5-5.2); Alkaline Phosphatase 153 U/L (40-130); Aspartate Amino Transferase 23 U/L (0-40); Blood Urea Nitrogen 14 mg/dL (8-23); Calcium 9.1 mg/dL (8.5-10.5); Carbon Dioxide 23 mmol/L (22-29); Chloride 102 mmol/L (98-107); Globulin 3.8 g/dL (1.3-4.6); Glucose 102 mg/dL (65-115); Osmolality Calculated 281 mOsm/kg (285-295); Sodium 135 mmol/L (136-145); Total Bilirubin 0.4 mg/dL (0.15-1.2); Total Protein 7.6 g/dL (6.6-8.7)
[2021-12-01 08:31] LABS: Anion Gap 13.9 (5-19); Potassium 3.9 mmol/L (3.5-5.1)
== END 2021-12-10 23:59 | disposition home or self-care (01) ==
PROVIDERS: PCP Family Medicine; Visit Provider Internal Medicine Hematology & Oncology
DX: D75.839 Thrombocytosis, unspecified (principal)
CPT/HCPCS: 36415; 80053; 85025

== ENCOUNTER → 2021-12-26 09:05 | Outpatient (BNVA) | payer OTHER, SELFPAY | PROVIDERS: PCP Family Medicine; Visit Provider Internal Medicine Critical Care Medicine | DX: J45.909 Unspecified asthma, uncomplicated (principal); J82.83 Eosinophilic asthma; R05.9 Cough, unspecified | CPT/HCPCS: 99213 ==

== ENCOUNTER 2022-02-13 07:55 | Oncology outpatient (recurring) (ONCR) | payer OTHER, SELFPAY ==
[2022-02-13 08:33] LABS: Basophils % 0.2 %; Eosinophils # 0.1 10^3/uL (0.0-0.8); Hematocrit 44.3 % (42.0-52.0); Hemoglobin 14.7 g/dL (11.7-16.6); Lymphocytes % 11.5 %; Mean Corpuscular HGB Conc 33.2 g/dL (30.0-36.0); Mean Corpuscular Hemoglobin 37.7 pg (28.0-34.0); Mean Corpuscular Volume 113.6 fl (80-94); Mean Platelet Volume 9.7 fL (7.4-10.4); Monocytes # 0.5 10^3/uL (0.2-0.9); Monocytes % 5.6 %; Neutrophils # 7.17 10^3/uL (1.8-7.7); Neutrophils % 79.7 %; Nucleated Red Blood Cells % 0 %; Platelet Count 336 10^3/cmm (130-400); Red Cell Distribution Width 14.4 % (12.1-15.1)
== END 2022-03-11 23:59 | disposition home or self-care (01) ==
PROVIDERS: PCP Family Medicine; Visit Provider Internal Medicine Hematology & Oncology
DX: D75.839 Thrombocytosis, unspecified (principal); Z79.82 Long term (current) use of aspirin; Z79.64 Long term (current) use of myelosuppressive agent
CPT/HCPCS: 85025; 99214

== ENCOUNTER → 2022-03-03 10:41 | Outpatient (BNVA) | payer OTHER, SELFPAY | PROVIDERS: PCP Family Medicine; Visit Provider Specialist | DX: G30.9 Alzheimer's disease, unspecified (principal); F02.80 Dementia in other diseases classified elsewhere, unspecified severity, without behavioral disturbance, psychotic disturbance, mood disturbance, and anxiety | CPT/HCPCS: 99213 ==

== ENCOUNTER 2022-04-05 08:29 | Emergency (ER) | payer OTHER, SELFPAY ==
[2022-04-05 08:33] VITALS: BP 124/70; PULSE 75; RESP 16; TEMP 37.1; O2SAT 98
--- NOTE | 2022-04-05 08:40 | XRR_ITS ---
PROCEDURE INFORMATION: Exam: XR Chest Exam date and time: 04/05/2022 9:11 AM Age: 71 years old Clinical indication: Cough and dyspnea; Prior surgery TECHNIQUE: Imaging protocol: Radiologic exam of the chest. Views: 1 view. COMPARISON: CT chest con [id number] 08/04/2019 8:34 AM FINDINGS: Lungs: No consolidation. Pleural spaces: Unremarkable. No pleural effusion. No pneumothorax. Heart/Mediastinum: No cardiomegaly. Bones/joints: No acute findings. XR/XR chest 1V portable [id number] IMPRESSION: No acute findings.
[2022-04-05 08:48] VITALS: BP 128/70; PULSE 74; RESP 14; O2SAT 98
--- NOTE | 2022-04-05 08:58 | ECG_ITS ---
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 Measurements Intervals [place] Rate: 63 P: 63 NH: 206 QRS: 20 QRSD: 98 T: 40 QT: 406 QTc: 419 Interpretive Statements SINUS RHYTHM MODERATE VOLTAGE CRITERIA FOR LVH, CONSIDER NORMAL VARIANT Compared to ECG 09/25/2021 12:50:53 Sinus bradycardia no longer present Electronically Signed On 04-06-2022 6:01:49 DIGITAL ACCOUNT EXECUTIVE by Yaritza Browning M.D. [email or web address] healthcare of mississippiLoudCloud Systemsmetrohealth main campus medical [email or web address]/store/OM/[id number]
--- NOTE | 2022-04-05 09:04 | W.ED.SOB ---
HPI - SOB/Dyspnea General: Chief Complaint: Shortness of Breath/Dyspnea Stated Complaint: sob Time Seen by Provider: 04/05/22 08:39 History of Present Illness: HPI Narrative: Patient is a 71-year-old male who comes to the ED with shortness of breath. Patient has COPD but is not on any oxygen at home. Approximately 2 days ago he started developing nasal drainage and a cough. He describes his cough as nonproductive. Denies any fevers, nausea/vomiting, chest pain. Associated symptoms: Deny abdominal pain, chest pain, fever(s), nausea, orthopnea, palpitations or vomiting Review of Systems Const: Denies: fever(s), chills or fatigue Eyes: Denies: change in vision or eye discomfort ENMT: Reports: nasal discharge; Denies: throat pain, odynophagia or nasal congestion Card: Denies: chest pain, palpitations, edema, swelling of feet/ankles, dyspnea on exertion or orthopnea Resp: Reports: dyspnea and non-productive cough; Denies: productive cough GI: Denies: abdominal pain, nausea, vomiting, diarrhea, constipation or hematochezia : Denies: flank pain, difficulty urinating, dysuria or hematuria Musc: Denies: neck pain, back pain or extremity swelling Skin/Breast: Denies: rash or new lesions Neuro: Denies: headache(s), numbness in extremities or weakness in extremities PFSH ED PFSH: Medical History COPD (chronic obstructive pulmonary disease) Cyst near tailbone Dementia Mood disorder Nasal sinus congestion Thrombocytosis Surgical History History of ankle surgery History of colonoscopy 2016 History of inguinal hernia repair Left 1986 History of knee replacement procedure of left knee 2020 History of testicular surgery Status post right inguinal hernia repair (09/25/21) Family History Other CAD (coronary artery disease) Cancer Diabetes Hypertension Denies family history of Stroke Social History Smoking and tobacco status: never smoked Alcohol intake: never Lives independently: Yes Household members: spouse Marital status: Current occupational status: retired History of recent travel: No Current gender identity: Male Physical Exam Const: COMMON NORMALS: no acute distress, patient oriented x3 and alert GENERAL APPEARANCE: cooperative and comfortable HENMT: COMMON NORMALS: normocephalic HEAD & SCALP: normocephalic MOUTH: Normal oral and palatal mucosa present THROAT: posterior oropharynx normal and uvula midline Neck/C-Spine: COMMON NORMALS: supple GENERAL: Yes normal visual inspection Resp: COMMON NORMALS: normal respiratory effort, No retractions, No use of accessory muscles and clear to auscultation bilaterally AUSCULTATION: clear to auscultation bilaterally Cardio: COMMON NORMALS: regular rate, regular rhythm, S1 normal heart sound present, S2 normal heart sound present, No gallops present (Cardio), No clicks present (Cardio), No murmurs present (Cardio) and Peripheral pulses 2+ throughout RATE: regular rate RHYTHM: regular rhythm HEART SOUNDS: S1 normal heart sound present and S2 normal heart sound present PERIPHERAL PULSES: Peripheral pulses 2+ throughout GI: COMMON NORMALS: Normal to inspection, nondistended, normoactive bowel sounds present, Soft to palpation, non-tender and no masses PALPATION: Yes Soft to palpation : COMMON NORMALS: Yes no CVA tenderness BLADDER/KIDNEY EXAM: Yes no CVA tenderness Back/Pelvis: COMMON NORMALS: no CVA tenderness Extremity: COMMON NORMALS: normal to inspection Neuro: COMMON NORMALS: patient oriented x3 SENSORIUM/ORIENTATION: Yes alert GAIT: Yes Normal gait present Skin: GENERAL SKIN EXAM: dry skin Course Vital Signs: Vital signs: Vital Signs Temperature 98.8 F 04/05/22 08:33 Pulse Rate 74 04/05/22 08:48 Respiratory Rate 14 04/05/22 08:48 Blood Pressure 128/70 04/05/22 08:48 Pulse Oximetry 98 04/05/22 08:48 Oxygen Delivery Me thod 04/05/22 08:48 MDM - SOB/Dyspnea Medical Decision Making Patient is a 71-year-old male comes to the ED with cough and shortness of breath. Patient has a history of COPD. symptoms started couple days ago. Vitals are stable patient's O2 sat is 90% on room air. Exam of patient is benign and he appears nontoxic in no acute distress or pain. Lungs are clear to auscultation bilaterally. CBC and CMP were unremarkable. Troponins negative. Chest x-ray showed no acute findings. COVID test was positive. EKG showed normal sinus rhythm with no ST segment elevation or depression seen. Patient was given a dose of Solu-Medrol, doxycycline here in the ED. He is stable for discharge home and diagnosed with COVID-19 and sent home with a prescription for an antibiotic and a steroid. Return to ED precautions given. Patient understood and agreed with plan. Lab Data I reviewed the patient's lab results. 04/05/22 09:04 04/05/22 09:04 Labs/Radiology: Radiology Impressions Chest X-Ray 04/05/22 08:40 IMPRESSION: No acute findings. Laboratory Results WBC 6.3 10^3/uL (4.0-10.0) 04/05/22 09:04 RBC 3.54 10^6/uL (4.1-5.3) L 04/05/22 09:04 Hgb 13.5 g/dL (11.7-16.6) 04/05/22 09:04 Hct 40.4 % (42.0-52.0) L 04/05/22 09:04 MCV 114.1 fl (80-94) H 04/05/22 09:04 MCH 38.1 pg (28.0-34.0) H 04/05/22 09:04 MCHC 33.4 g/dL (30.0-36.0) 04/05/22 09:04 RDW 14.2 % (12.1-15.1) 04/05/22 09:04 Plt Count 315 10^3/cmm (130-400) 04/05/22 09:04 MPV 9.9 fL (7.4-10.4) 04/05/22 09:04 Neut % (Auto) 69.6 % 04/05/22 09:04 Lymph % (Auto) 11.3 % 04/05/22 09:04 [place] % (Auto) 14.9 % 04/05/22 09:04 Eos % (Auto) 1.1 % 04/05/22 09:04 Baso % (Auto) 0.2 % 04/05/22 09:04 Neut # (Auto) 4.36 10^3/uL (1.8-7.7) 04/05/22 09:04 Lymph # (Auto) 0.7 10^3/uL (0.8-4.8) L 04/05/22 09:04 [place] # (Auto) 0.9 10^3/uL (0.2-0.9) 04/05/22 09:04 Eos # (Auto) 0.1 10^3/uL (0.0-0.8) 04/05/22 09:04 Baso # (Auto) 0.0 10^3/uL (0.0-0.1) 04/05/22 09:04 Nucleated RBC % (auto) 0 % 04/05/22 09:04 Nucleated RBCs # 0.0 /100WBC 04/05/22 09:04 Sodium 135 mmol/L (136-145) L 04/05/22 09:04 Potassium 3.9 mmol/L (3.5-5.1) 04/05/22 09:04 Chloride 102 mmol/L (98-107) 04/05/22 09:04 Carbon Dioxide 25 mmol/L (22-29) 04/05/22 09:04 Anion Gap 11.9 (5-19) 04/05/22 09:04 BUN 17 mg/dL (8-23) 04/05/22 09:04 Creatinine 0.9 mg/dL (0.7-1.2) 04/05/22 09:04 GFR Calculation Not Reportable 04/05/22 09:04 Glucose 108 mg/dL (65-115) 04/05/22 09:04 Calculated Osmolality 282 mOsm/kg (285-295) L 04/05/22 09:04 Calcium 9.1 mg/dL (8.5-10.5) 04/05/22 09:04 Total Bilirubin 0.4 mg/dL (0.15-1.2) 04/05/22 09:04 AST 20 U/L (0-40) 04/05/22 09:04 ALT 19 U/L (0-41) 04/05/22 09:04 Alkaline Phosphatase 136 U/L (40-130) H 04/05/22 09:04 Troponin T Baseline 16 ng/L (0-15) H 04/05/22 09:04 Troponin T 120 Minute 15.48 ng/L (0-15) H 04/05/22 11:03 Delta Troponin T -0.52 ABS# (0-10) L 04/05/22 11:03 Total Protein 7.1 g/dL (6.6-8.7) 04/05/22 09:04 Albumin 3.9 g/dL (3.5-5.2) 04/05/22 09:04 Globulin 3.2 g/dL (1.3-4.6) 04/05/22 09:04 Influenza Type A Ag negative (Negative) 04/05/22 09:20 Influenza Type B Ag negative (Negative) 04/05/22 09:20 SARS-CoV-2 Ag (Rapid) positive (Negative) 04/05/22 09:20 EKG Data EKG 1: EKG Interpretation Date: 04/05/22 Interpretation: Sinus rhythm, 63 bpm, no ST segment elevation or depression seen. Discharge Plan Discharge Patient Disposition: Home Clinical Impression: COVID-19 Condition: Stable Prescriptions: New doxycycline hyclate 100 mg capsule 100 mg PO BID 10 Days Qty: 20 0RF prednisone 20 mg tablet 20 mg PO BID 7 Days Qty: 14 0RF No Action cholecalciferol (vitamin D3) [Vitamin D3] 25 mcg (1,000 unit) capsule 25 mcg PO DAILY aspirin [Aspir-81] 81 mg tablet,delayed release (DR/EC) 40.5 mg PO DAILY fludrocortisone 0.1 mg tablet 0.1 mg PO DAILY guaifenesin 400 mg tablet 400 mg PO TID quetiapine 50 mg tablet 50 mg PO BEDTIME Qty: 90 3RF galantamine 8 mg tablet 12 mg PO BID Qty: 180 3RF Rx Instructions: administer with AM and PM meals fluticasone propionate 50 mcg/actuation spray,suspension 2 spray intranasal BID Qty: 16 3RF fluticasone propion-salmeterol [Wixela Inhub] 250-50 mcg/dose blister with device 1 inh inhalation BID Qty: 60 11RF hydroxyurea 500 mg capsule 500 mg PO .COMPLEX 14 Days Qty: 16 0RF Rx Instructions: 500 mg PO Take one tab daily, takes 2 tablets on Sundays cyanocobalamin (vitamin B-12) 500 mcg Tablet 500 mcg PO DAILY zinc 25 mg Tablet 25 mg PO DAILY hydrocodone-acetaminophen 5-325 mg tablet 1 tab PO Q6H PRN (Reason: pain) Qty: 20 0RF Colace 100 mg capsule 100 mg PO BID Qty: 30 0RF Discharge Orders: Discharge ED (Routine); Ordered 04/05/22 Ordered By: Yves Gudino Referrals: Cece Che MD [Primary Care Provider] - Discharge Diet: Regular Patient Instructions: COVID-19 (Coronavirus Disease 2019) (ED) Activity Restrictions/Additional Instructions: Follow-up with medical provider as directed. Take medications as prescribed. Return to the ER or your medical provider if condition worsens. Please read and understand discharge instructions. Thank you for choosing [facility] for your healthcare needs today. Please realize this is an emergency room and that we are providing you with a medical screening exam and this may not be complete and all inclusive of all the testing and or work up that you may need to determine your ailment or severity of your illness. It is very important that you follow up as instructed or that you return to the Emergency Department should you have concerns or if your condition changes or worsens in any way. Coding Level of Care Code ED Monitoring Tech for Natashag Fwd Exam Comprehensive
[2022-04-05 09:35] LABS: Basophils % 0.2 %; Eosinophils # 0.1 10^3/uL (0.0-0.8); Eosinophils % 1.1 %; Hematocrit 40.4 % (42.0-52.0); Hemoglobin 13.5 g/dL (11.7-16.6); Lymphocytes # 0.7 10^3/uL (0.8-4.8); Lymphocytes % 11.3 %; Mean Corpuscular HGB Conc 33.4 g/dL (30.0-36.0); Mean Corpuscular Hemoglobin 38.1 pg (28.0-34.0); Mean Corpuscular Volume 114.1 fl (80-94); Mean Platelet Volume 9.9 fL (7.4-10.4); Monocytes # 0.9 10^3/uL (0.2-0.9); Monocytes % 14.9 %; Neutrophils # 4.36 10^3/uL (1.8-7.7); Neutrophils % 69.6 %; Nucleated Red Blood Cells % 0 %; Platelet Count 315 10^3/cmm (130-400); Red Blood Count 3.54 10^6/uL (4.1-5.3); Red Cell Distribution Width 14.2 % (12.1-15.1); White Blood Count 6.3 10^3/uL (4.0-10.0)
[2022-04-05 09:40] LABS: Troponin(5th) Baseline 16 ng/L (0-15)
[2022-04-05 09:43] LABS: Alanine Aminotransferase 19 U/L (0-41); Albumin Level 3.9 g/dL (3.5-5.2); Alkaline Phosphatase 136 U/L (40-130); Anion Gap 11.9 (5-19); Aspartate Amino Transferase 20 U/L (0-40); Blood Urea Nitrogen 17 mg/dL (8-23); Calcium 9.1 mg/dL (8.5-10.5); Carbon Dioxide 25 mmol/L (22-29); Chloride 102 mmol/L (98-107); Globulin 3.2 g/dL (1.3-4.6); Glucose 108 mg/dL (65-115); Osmolality Calculated 282 mOsm/kg (285-295); Potassium 3.9 mmol/L (3.5-5.1); Sodium 135 mmol/L (136-145); Total Bilirubin 0.4 mg/dL (0.15-1.2); Total Protein 7.1 g/dL (6.6-8.7)
[2022-04-05 09:46] LABS: SARS Covid-2 Antigen positive (Negative)
[2022-04-05 09:47] LABS: Influenza A by IFA negative (Negative); Influenza B by IFA negative (Negative)
--- NOTE | 2022-04-05 10:41 | ECG_ITS ---
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 Measurements Intervals [place] Rate: 62 P: 61 ND: 205 QRS: 11 QRSD: 102 T: 38 QT: 422 QTc: 430 Interpretive Statements SINUS RHYTHM MINIMAL VOLTAGE CRITERIA FOR LVH, CONSIDER NORMAL VARIANT [MEETS CRITERIA IN ONE OF: R(aVL), S(V1), R(V5), R(V5/V6)+S(V1)] Compared to ECG 04/05/2022 08:58:48 No significant changes Electronically Signed On 04-06-2022 6:08:15 MOLD PRESSER by Yaritza Browning M.D. [id number]
[2022-04-05 11:32] LABS: Troponin 5 2HR 15.48 ng/L (0-15)
[2022-04-05 11:41] LABS: Troponin 5 2HR Delta -0.52 ABS# (0-10)
[2022-04-05] MEDS: doxycycline 100 mg Tablet PO (11:47)
== END 2022-04-05 11:57 | disposition home or self-care (01) ==
PROVIDERS: Emergency Provider Physician Assistant; PCP Family Medicine
DX: U07.1 COVID-19 (principal); Z79.82 Long term (current) use of aspirin; J44.9 Chronic obstructive pulmonary disease, unspecified; F03.90 Unspecified dementia, unspecified severity, without behavioral disturbance, psychotic disturbance, mood disturbance, and anxiety
CPT/HCPCS: 36415; 71045; 80053; 84484; 85025; 87426; 87804; 93005; 96372; 99285; J2930

== ENCOUNTER → 2022-04-23 07:52 | Outpatient (BNVA) | payer OTHER, SELFPAY | PROVIDERS: PCP Family Medicine; Visit Provider Podiatrist Foot & Ankle Surgery | DX: I73.9 Peripheral vascular disease, unspecified (principal); M20.41 Other hammer toe(s) (acquired), right foot; M20.42 Other hammer toe(s) (acquired), left foot; M19.071 Primary osteoarthritis, right ankle and foot; L60.3 Nail dystrophy; M21.42 Flat foot [pes planus] (acquired), left foot; M21.41 Flat foot [pes planus] (acquired), right foot | CPT/HCPCS: 11721; 99203 ==

== ENCOUNTER 2022-05-18 06:00 | Outpatient (RCR) | payer OTHER, SELFPAY | END 2022-06-09 23:59 | disposition home or self-care (01) | LOC: SPT 06:00 | PROVIDERS: PCP Family Medicine; Visit Provider Family Medicine | DX: G31.83 Neurocognitive disorder with Lewy bodies (principal) | CPT/HCPCS: 97110; 97112; 97162 ==

== ENCOUNTER 2022-05-22 07:46 | Oncology outpatient (recurring) (ONCR) | payer OTHER, SELFPAY ==
[2022-05-22 08:09] LABS: Basophils % 0.3 %; Eosinophils # 0.1 10^3/uL (0.0-0.8); Eosinophils % 1.8 %; Hematocrit 43.8 % (42.0-52.0); Hemoglobin 14.2 g/dL (11.7-16.6); Lymphocytes % 14.7 %; Mean Corpuscular HGB Conc 32.4 g/dL (30.0-36.0); Mean Corpuscular Volume 114.1 fl (80-94); Mean Platelet Volume 9.4 fL (7.4-10.4); Monocytes # 0.8 10^3/uL (0.2-0.9); Neutrophils # 4.52 10^3/uL (1.8-7.7); Neutrophils % 66.5 %; Nucleated Red Blood Cells % 0 %; Platelet Count 449 10^3/cmm (130-400); Red Blood Count 3.84 10^6/uL (4.1-5.3); Red Cell Distribution Width 13.9 % (12.1-15.1); White Blood Count 6.8 10^3/uL (4.0-10.0)
[2022-05-22 09:03] LABS: Slide Review Slide Review Perform
== END 2022-06-09 23:59 | disposition home or self-care (01) ==
PROVIDERS: PCP Family Medicine; Visit Provider Internal Medicine Hematology & Oncology
DX: D75.839 Thrombocytosis, unspecified (principal); Z79.82 Long term (current) use of aspirin; Z79.64 Long term (current) use of myelosuppressive agent
CPT/HCPCS: 36415; 85025; 99214

== ENCOUNTER → 2022-06-05 10:01 | Outpatient (BNVA) | payer OTHER, SELFPAY | PROVIDERS: PCP Family Medicine; Visit Provider Internal Medicine Pulmonary Disease | DX: J45.909 Unspecified asthma, uncomplicated (principal); J82.83 Eosinophilic asthma; R09.82 Postnasal drip | CPT/HCPCS: 99214 ==

== ENCOUNTER 2022-06-10 06:00 | Outpatient (RCR) | payer OTHER, SELFPAY | END 2022-07-10 23:59 | disposition home or self-care (01) | LOC: SPT 06:00 | PROVIDERS: PCP Family Medicine; Visit Provider Family Medicine | DX: G31.83 Neurocognitive disorder with Lewy bodies (principal) | CPT/HCPCS: 97110; 97112 ==

== ENCOUNTER 2022-07-11 06:00 | Outpatient (RCR) | payer OTHER, SELFPAY | END 2022-07-13 23:59 | disposition home or self-care (01) | LOC: SPT 06:00 | PROVIDERS: PCP Family Medicine; Visit Provider Family Medicine | DX: G31.83 Neurocognitive disorder with Lewy bodies (principal); R29.6 Repeated falls | CPT/HCPCS: 97110 ==

== ENCOUNTER → 2022-07-30 09:34 | Outpatient (BNVA) | payer OTHER, SELFPAY | PROVIDERS: PCP Family Medicine; Visit Provider Podiatrist Foot & Ankle Surgery | DX: I73.9 Peripheral vascular disease, unspecified (principal); L60.8 Other nail disorders; M20.41 Other hammer toe(s) (acquired), right foot; M20.42 Other hammer toe(s) (acquired), left foot; M21.42 Flat foot [pes planus] (acquired), left foot; M21.41 Flat foot [pes planus] (acquired), right foot; M19.071 Primary osteoarthritis, right ankle and foot; L60.3 Nail dystrophy | CPT/HCPCS: 11721 ==

== ENCOUNTER 2022-07-31 13:03 | Emergency (ER) | payer OTHER, SELFPAY ==
[2022-07-31 13:08] VITALS: BP 135/75; PULSE 59; RESP 16; O2SAT 97
--- NOTE | 2022-07-31 13:24 | W.ED.EYEPROB ---
HPI - Eye Problem General: Chief complaint: Eye Problems Stated complaint: right eye pain/retina falling possibly Time Seen by Provider: 07/31/22 13:23 Source: patient Mode of arrival: ambulatory Limitations: no limitations History of Present Illness: Patient is a nice 72-year-old here with complaints of visual changes to his right eye. Patient states he has a history of bilateral cataract surgery as well as a retinal detachment repair to his left eye. He states about 14 days ago he began having what he describes as a doughnut shape of blurry vision as well as blurriness to the superior aspect of his visual field. He states he has never had any form of visual loss. He does not describe any sensation of floaters or flashes. He states over that 14-day. He does feel like symptoms have improved and now feels like the superior visual field is back to normal but still has the donut shaped blurriness. He reportedly was seen at the [facility] and they were told to come to the ED for evaluation of a possible retinal detachment to his right eye. Patient is not having any pain. No foreign body sensation. No trauma. chief complaint: vision change Onset (ago): day(s) Onset description: gradual Duration: improved Location: right eye Eye Symptoms: blurry vision Place: home Mechanism: none Associated symptoms: Reports no associated symptoms Treatments Prior to Arrival: none Related Data: Patient tetanus UTD: Yes Review of Systems Eyes: Reports: change in vision and blurry vision; Denies: blind spots, photophobia, eye discomfort, eye discharge, eye redness, yellow eyes, dry eyes, increased production of tears, floaters or seeing flashes [facility] ED PFSH: Medical History COPD (chronic obstructive pulmonary disease) [facility]yst [facility] Dementia Mood disorder Nasal sinus congestion Thrombocytosis Surgical History History of ankle surgery History of colonoscopy 2016 History of inguinal hernia repair Left 1986 History of knee replacement procedure of left knee 2020 History of testicular surgery Status post right inguinal hernia repair (09/25/21) Family History Other CAD (coronary artery disease) Cancer Diabetes Hypertension Denies family history of Stroke Social History Smoking and tobacco status: never smoked Alcohol intake: never Substance/Drug Use: never Lives independently: Yes Household members: spouse Marital status: Current occupational status: retired Do you think of yourself as: Straight/Heterosexual Current gender identity: Male Physical Exam Const: COMMON NORMALS: no acute distress, average body habitus, patient oriented x3, no limitations, healthy appearing, alert and well nourished HENMT: FACE & SINUS: normal facial exam Eye: COMMON NORMALS: Equal, round and reactive pupils present, EOMs intact bilaterally, conjunctivae normal and no scleral icterus GENERAL EYE: appearance normal, both eyes and all related structures and normal light reflex VISUAL MALAGON: No peripheral vision loss and No central vision loss ALIGNMENT: Yes alignment normal PERIORBITAL: periorbital findings normal EYELID: eyelids normal CONJUNCTIVA: Yes conjunctivae normal SCLERA: sclerae normal CORNEA: Yes corneas normal PUPIL: Yes Equal, round and reactive pupils present DIRECT OPHTHALMOSCOPY: Yes normal light reflex Neuro: COMMON NORMALS: patient oriented x3 SENSORIUM/ORIENTATION: Yes alert Course Consultations: Consultation #1: Jesús Mcnally PA-C-agrees with plan to have him see his senior pl sql developer or their office early next week Vital Signs: Vital signs: Vital Signs Pulse Rate 59 L 07/31/22 13:08 Respiratory Rate 16 07/31/22 13:08 Blood Pressure 135/75 07/31/22 13:08 Pulse Oximetry 97 07/31/22 13:08 Oxygen Delivery Me thod Room Air 07/31/22 13:08 MDM - Eye Problem Medical Decision Making Patient states he did try to contact his senior pl sql developer in [place] but they are closed on Fridays. Patient's history is not concerning for a retinal detachment as he is not having any visual loss, floaters, or flashes, and symptoms have improved since onset. I spoke to Jesús Mcnally PA-C/ophthalmology who agrees. He agrees that patient is stable for follow-up with his senior pl sql developer early this week. If they are not able to get into them they can be seen at [facility] here. Return ED precautions given. Discharge Plan Discharge Patient Disposition: Home Clinical Impression: Blurred vision, right eye Condition: Stable Prescriptions: No Action cholecalciferol (vitamin D3) [Vitamin D3] 25 mcg (1,000 unit) capsule 25 mcg PO DAILY aspirin [Aspir-81] 81 mg tablet,delayed release (DR/EC) 40.5 mg PO DAILY fludrocortisone 0.1 mg tablet 0.1 mg PO DAILY guaifenesin 400 mg tablet 400 mg PO TID quetiapine 50 mg tablet 50 mg PO BEDTIME Qty: 90 3RF galantamine 8 mg tablet 12 mg PO BID Qty: 180 3RF Rx Instructions: administer with AM and PM meals albuterol sulfate [Ventolin HFA] 90 mcg/actuation HFA aerosol inhaler 1 inh inhalation QID PRN (Reason: shortness of breath or wheezing) Qty: 8.5 3RF fluticasone propionate 50 mcg/actuation spray,suspension 2 spray intranasal BID Qty: 16 3RF hydroxyurea 500 mg capsule 500 mg PO .COMPLEX 30 Days Qty: 35 2RF Rx Instructions: 500 mg PO Take one tab daily, takes 2 tablets on Sundays fluticasone propion-salmeterol [Wixela Inhub] 500-50 mcg/dose blister with device 1 inh inhalation BID Qty: 60 3RF cyanocobalamin (vitamin B-12) 500 mcg Tablet 500 mcg PO DAILY zinc 25 mg Tablet 25 mg PO DAILY Colace 100 mg capsule 100 mg PO BID Qty: 30 0RF Discharge Orders: Discharge ED (Routine); Ordered 07/31/22 Ordered By: Lorene Jimenez Referrals: Cece Che MD [Primary Care Provider] - Coding Level of Care Code ED Immigration Law Specialist for Azul Davidson
== END 2022-07-31 14:19 | disposition home or self-care (01) ==
PROVIDERS: Emergency Provider Physician Assistant; PCP Family Medicine
DX: H53.8 Other visual disturbances (principal); Z79.82 Long term (current) use of aspirin; J44.9 Chronic obstructive pulmonary disease, unspecified; F03.90 Unspecified dementia, unspecified severity, without behavioral disturbance, psychotic disturbance, mood disturbance, and anxiety
CPT/HCPCS: 99282

== ENCOUNTER 2022-09-18 07:53 | Oncology outpatient (recurring) (ONCR) | payer OTHER, SELFPAY ==
[2022-09-18 08:10] VITALS: BP 107/69; PULSE 62; RESP 18; TEMP 36.2; O2SAT 99
[2022-09-18 08:18] LABS: Basophils % 0.2 %; Eosinophils # 0.1 10^3/uL (0.0-0.8); Eosinophils % 1.2 %; Hematocrit 42.8 % (42.0-52.0); Hemoglobin 13.8 g/dL (11.7-16.6); Lymphocytes # 0.8 10^3/uL (0.8-4.8); Lymphocytes % 13.9 %; Mean Corpuscular HGB Conc 32.2 g/dL (30.0-36.0); Mean Corpuscular Volume 111.7 fl (80-94); Mean Platelet Volume 9.7 fL (7.4-10.4); Monocytes # 0.6 10^3/uL (0.2-0.9); Monocytes % 9.3 %; Neutrophils # 4.35 10^3/uL (1.8-7.7); Neutrophils % 73.7 %; Nucleated Red Blood Cells % 0 %; Platelet Count 369 10^3/cmm (130-400); Red Blood Count 3.83 10^6/uL (4.1-5.3); Red Cell Distribution Width 14.3 % (12.1-15.1); White Blood Count 5.9 10^3/uL (4.0-10.0)
== END 2022-10-09 23:59 | disposition home or self-care (01) ==
PROVIDERS: PCP Family Medicine; Visit Provider Internal Medicine Hematology & Oncology
DX: D75.839 Thrombocytosis, unspecified (principal); Z79.82 Long term (current) use of aspirin; Z79.64 Long term (current) use of myelosuppressive agent
CPT/HCPCS: 36415; 85025; 99214

== ENCOUNTER → 2022-10-21 10:13 | Outpatient (BNVA) | payer OTHER, SELFPAY | PROVIDERS: PCP Family Medicine; Visit Provider Podiatrist Foot & Ankle Surgery | DX: I73.9 Peripheral vascular disease, unspecified (principal); L60.8 Other nail disorders; L60.3 Nail dystrophy; M19.071 Primary osteoarthritis, right ankle and foot; M20.41 Other hammer toe(s) (acquired), right foot; M20.42 Other hammer toe(s) (acquired), left foot; M21.42 Flat foot [pes planus] (acquired), left foot; M21.41 Flat foot [pes planus] (acquired), right foot | CPT/HCPCS: 11721 ==

== ENCOUNTER → 2022-12-09 09:10 | Outpatient (BNVA) | payer OTHER, SELFPAY | PROVIDERS: PCP Family Medicine; Visit Provider Internal Medicine Pulmonary Disease | DX: J82.83 Eosinophilic asthma (principal); J30.9 Allergic rhinitis, unspecified | CPT/HCPCS: 99214 ==

== ENCOUNTER → 2022-12-23 10:41 | Outpatient (BNVA) | payer OTHER, SELFPAY | PROVIDERS: PCP Family Medicine; Visit Provider Podiatrist Foot & Ankle Surgery | DX: M20.41 Other hammer toe(s) (acquired), right foot (principal); M20.42 Other hammer toe(s) (acquired), left foot; M19.071 Primary osteoarthritis, right ankle and foot; L60.3 Nail dystrophy; I73.9 Peripheral vascular disease, unspecified; M21.42 Flat foot [pes planus] (acquired), left foot; M21.41 Flat foot [pes planus] (acquired), right foot | CPT/HCPCS: 11055; 11721 ==

== ENCOUNTER 2022-12-24 12:40 | Oncology outpatient (recurring) (ONCR) | payer OTHER, SELFPAY ==
[2022-12-24 13:35] VITALS: BP 99/64; PULSE 65; RESP 16; TEMP 37; O2SAT 96
[2022-12-24 13:42] LABS: Basophils % 0.2 %; Eosinophils # 0.1 10^3/uL (0.0-0.8); Eosinophils % 0.7 %; Lymphocytes # 0.8 10^3/uL (0.8-4.8); Lymphocytes % 9.1 %; Mean Corpuscular HGB Conc 33.4 g/dL (30-55); Mean Corpuscular Hemoglobin 37.5 pg (27-33); Mean Corpuscular Volume 112.3 fl (82-101); Mean Platelet Volume 9.8 fL (7.4-10.4); Monocytes # 0.6 10^3/uL (0.2-0.9); Monocytes % 6.7 %; Neutrophils # 6.88 10^3/uL (1.8-7.7); Neutrophils % 81.8 %; Nucleated Red Blood Cells % 0 %; Platelet Count 426 10^3/cmm (157-399); Red Blood Count 3.65 10^6/uL (3.85-5.65); White Blood Count 8.42 10^3/uL (3.29-11.43)
== END 2023-01-09 23:59 | disposition home or self-care (01) ==
PROVIDERS: Internal Medicine Medical Oncology; PCP Family Medicine; Visit Provider Internal Medicine Hematology & Oncology
DX: D75.839 Thrombocytosis, unspecified (principal); Z79.82 Long term (current) use of aspirin; Z79.64 Long term (current) use of myelosuppressive agent; Z53.9 Procedure and treatment not carried out, unspecified reason
CPT/HCPCS: 36415; 85025; 99214

== ENCOUNTER 2023-02-09 14:24 | Oncology outpatient (recurring) (ONCR) | payer OTHER, SELFPAY ==
[2023-02-09 12:49] VITALS: BP 135/82; PULSE 60; O2SAT 98
[2023-02-09 12:53] LABS: Basophils % 0.4 %; Eosinophils # 0.2 10^3/uL (0.0-0.8); Eosinophils % 2.3 %; Hematocrit 41.9 % (37-53); Lymphocytes # 0.9 10^3/uL (0.8-4.8); Lymphocytes % 11.1 %; Mean Corpuscular HGB Conc 32.7 g/dL (30-55); Mean Corpuscular Hemoglobin 37.6 pg (27-33); Mean Corpuscular Volume 115.1 fl (82-101); Mean Platelet Volume 9.5 fL (7.4-10.4); Monocytes # 0.6 10^3/uL (0.2-0.9); Monocytes % 7.9 %; Neutrophils # 5.77 10^3/uL (1.8-7.7); Neutrophils % 73.9 %; Nucleated Red Blood Cells % 0 %; Platelet Count 406 10^3/cmm (157-399); Red Blood Count 3.64 10^6/uL (3.85-5.65); White Blood Count 7.81 10^3/uL (3.29-11.43)
[2023-02-09 13:09] LABS: Alanine Aminotransferase 24 U/L (0-41); Albumin Level 3.9 g/dL (3.5-5.2); Alkaline Phosphatase 153 U/L (40-130); Anion Gap 9.8 (5-19); Aspartate Amino Transferase 20 U/L (0-40); Blood Urea Nitrogen 15 mg/dL (8-23); Calcium 9.4 mg/dL (8.5-10.5); Carbon Dioxide 29 mmol/L (22-29); Chloride 103 mmol/L (98-107); Glucose 91 mg/dL (65-115); Osmolality Calculated 286 mOsm/kg (285-295); Potassium 3.8 mmol/L (3.5-5.1); Sodium 138 mmol/L (136-145); Total Bilirubin 0.4 mg/dL (0.15-1.2); Total Protein 6.9 g/dL (6.6-8.7)
== END 2023-02-09 23:59 | disposition home or self-care (01) ==
PROVIDERS: Internal Medicine Medical Oncology; PCP Family Medicine; Visit Provider Internal Medicine Hematology & Oncology
DX: D75.839 Thrombocytosis, unspecified (principal); Z79.82 Long term (current) use of aspirin; Z79.64 Long term (current) use of myelosuppressive agent; R49.0 Dysphonia; Z79.899 Other long term (current) drug therapy
CPT/HCPCS: 36415; 80053; 85025; 99213

== ENCOUNTER → 2023-02-24 09:33 | Outpatient (BNVA) | payer OTHER, SELFPAY | PROVIDERS: PCP Family Medicine; Visit Provider Podiatrist Foot & Ankle Surgery | DX: M20.41 Other hammer toe(s) (acquired), right foot (principal); M20.42 Other hammer toe(s) (acquired), left foot; M19.071 Primary osteoarthritis, right ankle and foot; L60.3 Nail dystrophy; I73.9 Peripheral vascular disease, unspecified; M21.42 Flat foot [pes planus] (acquired), left foot; M21.41 Flat foot [pes planus] (acquired), right foot | CPT/HCPCS: 11721 ==

== ENCOUNTER → 2023-03-02 10:31 | Outpatient (BNVA) | payer OTHER, SELFPAY | PROVIDERS: PCP Family Medicine; Visit Provider Specialist | DX: R26.9 Unspecified abnormalities of gait and mobility (principal); R41.3 Other amnesia | CPT/HCPCS: 99213 ==

== ENCOUNTER 2023-04-14 08:10 | Outpatient (RCR) | payer OTHER, SELFPAY | END 2023-05-12 23:59 | disposition home or self-care (01) | LOC: SST 08:10 | PROVIDERS: Visit Provider Family Medicine | DX: R49.0 Dysphonia (principal) | CPT/HCPCS: 92507; 92524 ==

== ENCOUNTER 2023-05-12 11:32 | Oncology outpatient (recurring) (ONCR) | payer OTHER, SELFPAY ==
[2023-05-12 12:37] LABS: Basophils % 0.4 %; Eosinophils # 0.1 10^3/uL (0.0-0.8); Eosinophils % 0.8 %; Hematocrit 44.5 % (37-53); Lymphocytes % 12.5 %; Mean Corpuscular HGB Conc 33.7 g/dL (30-55); Mean Corpuscular Hemoglobin 38.3 pg (27-33); Mean Corpuscular Volume 113.5 fl (82-101); Mean Platelet Volume 9.2 fL (7.4-10.4); Monocytes # 0.5 10^3/uL (0.2-0.9); Monocytes % 6.8 %; Neutrophils # 5.82 10^3/uL (1.8-7.7); Neutrophils % 75.5 %; Nucleated Red Blood Cells % 0 %; Platelet Count 398 10^3/cmm (157-399); Red Blood Count 3.92 10^6/uL (3.85-5.65); Red Cell Distribution Width 13.7 % (12.1-15.1)
[2023-05-12 12:52] LABS: Alanine Aminotransferase 16 U/L (0-41); Albumin Level 4.2 g/dL (3.5-5.2); Alkaline Phosphatase 126 U/L (40-130); Anion Gap 14.2 (5-19); Aspartate Amino Transferase 20 U/L (0-40); Blood Urea Nitrogen 19 mg/dL (8-23); Calcium 9.9 mg/dL (8.5-10.5); Carbon Dioxide 26 mmol/L (22-29); Chloride 101 mmol/L (98-107); Globulin 3.2 g/dL (1.3-4.6); Glucose 90 mg/dL (65-115); Osmolality Calculated 286 mOsm/kg (285-295); Potassium 4.2 mmol/L (3.5-5.1); Sodium 137 mmol/L (136-145); Total Bilirubin 0.7 mg/dL (0.15-1.2); Total Protein 7.4 g/dL (6.6-8.7)
== END 2023-05-12 23:59 | disposition home or self-care (01) ==
PROVIDERS: Nurse Practitioner Family; Visit Provider Internal Medicine Medical Oncology
DX: D75.839 Thrombocytosis, unspecified (principal); Z79.82 Long term (current) use of aspirin; Z79.64 Long term (current) use of myelosuppressive agent; Z87.891 Personal history of nicotine dependence; K21.9 Gastro-esophageal reflux disease without esophagitis
CPT/HCPCS: 36415; 80053; 85025; 99214

== ENCOUNTER 2023-05-20 08:24 | Outpatient (RCR) | payer OTHER, SELFPAY | END 2023-06-04 23:59 | disposition home or self-care (01) | LOC: SST 08:24 | PROVIDERS: PCP Family Medicine; Visit Provider Family Medicine | DX: R49.0 Dysphonia (principal) | CPT/HCPCS: 92507 ==

== ENCOUNTER → 2023-06-09 10:40 | Outpatient (BNVA) | payer OTHER, SELFPAY | PROVIDERS: PCP Family Medicine; Visit Provider Podiatrist Foot & Ankle Surgery | DX: L60.3 Nail dystrophy (principal); I73.9 Peripheral vascular disease, unspecified | CPT/HCPCS: 11721 ==

== ENCOUNTER → 2023-06-14 09:47 | Outpatient (BNVA) | payer OTHER, SELFPAY | PROVIDERS: PCP Family Medicine; Visit Provider Internal Medicine Pulmonary Disease | DX: J43.2 Centrilobular emphysema (principal); J45.30 Mild persistent asthma, uncomplicated; J30.89 Other allergic rhinitis; Z87.891 Personal history of nicotine dependence | CPT/HCPCS: 99214 ==

== ENCOUNTER → 2023-06-29 14:37 | Outpatient (BNVA) | payer OTHER, SELFPAY | PROVIDERS: PCP Family Medicine; Referring Provider Family Medicine; Visit Provider Dermatology | DX: L72.11 Pilar cyst (principal); L57.0 Actinic keratosis; L40.8 Other psoriasis; D23.5 Other benign neoplasm of skin of trunk; D22.5 Melanocytic nevi of trunk; D22.0 Melanocytic nevi of lip; L82.1 Other seborrheic keratosis; L81.4 Other melanin hyperpigmentation; L57.8 Other skin changes due to chronic exposure to nonionizing radiation; Z85.828 Personal history of other malignant neoplasm of skin; D48.5 Neoplasm of uncertain behavior of skin | CPT/HCPCS: 11102; 17000; 99204 ==

== ENCOUNTER → 2023-07-15 08:01 | Outpatient (BNVA) | payer OTHER, SELFPAY | PROVIDERS: PCP Family Medicine; Visit Provider Dermatology | DX: D48.5 Neoplasm of uncertain behavior of skin (principal) | CPT/HCPCS: 11422; 12031 ==

== ENCOUNTER 2023-08-02 07:25 | Oncology outpatient (recurring) (ONCR) | payer OTHER, SELFPAY ==
[2023-08-02 07:52] LABS: Basophils % 0.2 %; Eosinophils # 0.1 10^3/uL (0.0-0.8); Hematocrit 41.5 % (37-53); Lymphocytes # 0.7 10^3/uL (0.8-4.8); Lymphocytes % 15.7 %; Mean Corpuscular HGB Conc 33.3 g/dL (30-55); Mean Corpuscular Hemoglobin 38.8 pg (27-33); Mean Corpuscular Volume 116.6 fl (82-101); Mean Platelet Volume 9.6 fL (7.4-10.4); Monocytes # 0.4 10^3/uL (0.2-0.9); Neutrophils # 3.14 10^3/uL (1.8-7.7); Neutrophils % 70.6 %; Nucleated Red Blood Cells % 0 %; Platelet Count 343 10^3/cmm (157-399); Red Blood Count 3.56 10^6/uL (3.85-5.65); Red Cell Distribution Width 14.3 % (12.1-15.1); White Blood Count 4.45 10^3/uL (3.29-11.43)
[2023-08-02 08:10] LABS: Alanine Aminotransferase 14 U/L (0-41); Albumin Level 3.9 g/dL (3.5-5.2); Alkaline Phosphatase 134 U/L (40-130); Anion Gap 9.9 (5-19); Aspartate Amino Transferase 19 U/L (0-40); Blood Urea Nitrogen 13 mg/dL (8-23); Calcium 9.1 mg/dL (8.5-10.5); Carbon Dioxide 28 mmol/L (22-29); Chloride 106 mmol/L (98-107); Globulin 2.9 g/dL (1.3-4.6); Glucose 91 mg/dL (65-115); Osmolality Calculated 290 mOsm/kg (285-295); Potassium 3.9 mmol/L (3.5-5.1); Sodium 140 mmol/L (136-145); Total Bilirubin 0.5 mg/dL (0.15-1.2); Total Protein 6.8 g/dL (6.6-8.7)
== END 2023-08-10 23:59 | disposition home or self-care (01) ==
PROVIDERS: Nurse Practitioner Family; PCP Family Medicine; Visit Provider Internal Medicine Medical Oncology
DX: D75.839 Thrombocytosis, unspecified (principal); Z79.82 Long term (current) use of aspirin; Z79.64 Long term (current) use of myelosuppressive agent; R91.8 Other nonspecific abnormal finding of lung field
CPT/HCPCS: 36415; 80053; 85025; 99214

== ENCOUNTER → 2023-08-19 14:06 | Outpatient (BNVA) | payer OTHER, SELFPAY | PROVIDERS: PCP Family Medicine; Visit Provider Nurse Practitioner Family | DX: D48.5 Neoplasm of uncertain behavior of skin (principal); B35.3 Tinea pedis; L40.8 Other psoriasis; L57.0 Actinic keratosis; L82.0 Inflamed seborrheic keratosis; D22.0 Melanocytic nevi of lip; L81.4 Other melanin hyperpigmentation; L82.1 Other seborrheic keratosis; L57.8 Other skin changes due to chronic exposure to nonionizing radiation; Z85.828 Personal history of other malignant neoplasm of skin | CPT/HCPCS: 11102; 17000; 17110; 99213 ==

== ENCOUNTER → 2023-09-14 09:44 | Outpatient (BNVA) | payer OTHER, SELFPAY | PROVIDERS: PCP Family Medicine; Visit Provider Podiatrist Foot & Ankle Surgery | DX: L60.3 Nail dystrophy (principal); I73.9 Peripheral vascular disease, unspecified | CPT/HCPCS: 11721 ==

== ENCOUNTER → 2023-09-17 07:56 | Outpatient (BNVA) | payer OTHER, SELFPAY | PROVIDERS: PCP Family Medicine; Visit Provider Nurse Practitioner Family | DX: B35.3 Tinea pedis (principal); L57.0 Actinic keratosis; L82.1 Other seborrheic keratosis; L81.4 Other melanin hyperpigmentation; D22.5 Melanocytic nevi of trunk; Z85.828 Personal history of other malignant neoplasm of skin | CPT/HCPCS: 17000; 99213 ==

== ENCOUNTER → 2023-10-05 07:54 | Outpatient (BNVA) | payer OTHER, SELFPAY | PROVIDERS: PCP Family Medicine; Visit Provider Dermatology | DX: C44.41 Basal cell carcinoma of skin of scalp and neck (principal) | CPT/HCPCS: 13132; 17311 ==

== ENCOUNTER 2023-10-25 13:40 | Oncology outpatient (recurring) (ONCR) | payer OTHER, SELFPAY ==
[2023-10-25 14:55] LABS: Basophils % 0.2 %; Eosinophils # 0.1 10^3/uL (0.0-0.8); Eosinophils % 1.5 %; Hematocrit 39.9 % (37-53); Lymphocytes # 0.8 10^3/uL (0.8-4.8); Lymphocytes % 14.7 %; Mean Corpuscular HGB Conc 33.1 g/dL (30-55); Mean Corpuscular Hemoglobin 39.1 pg (27-33); Mean Platelet Volume 9.8 fL (7.4-10.4); Monocytes # 0.5 10^3/uL (0.2-0.9); Monocytes % 8.9 %; Neutrophils # 3.94 10^3/uL (1.8-7.7); Nucleated Red Blood Cells % 0 %; Platelet Count 305 10^3/cmm (157-399); Red Blood Count 3.38 10^6/uL (3.85-5.65); Red Cell Distribution Width 13.9 % (12.1-15.1); White Blood Count 5.39 10^3/uL (3.29-11.43)
[2023-10-25 15:17] LABS: Alanine Aminotransferase 10 U/L (0-41); Alkaline Phosphatase 127 U/L (40-130); Anion Gap 10.9 (5-19); Aspartate Amino Transferase 16 U/L (0-40); Blood Urea Nitrogen 16 mg/dL (8-23); Calcium 8.9 mg/dL (8.5-10.5); Carbon Dioxide 26 mmol/L (22-29); Chloride 106 mmol/L (98-107); Glucose 87 mg/dL (65-115); Osmolality Calculated 289 mOsm/kg (285-295); Potassium 3.9 mmol/L (3.5-5.1); Sodium 139 mmol/L (136-145); Total Bilirubin 0.6 mg/dL (0.15-1.2)
== END 2023-11-10 23:59 | disposition home or self-care (01) ==
PROVIDERS: Nurse Practitioner Family; PCP Family Medicine; Visit Provider Internal Medicine Medical Oncology
DX: Z79.82 Long term (current) use of aspirin; Z79.64 Long term (current) use of myelosuppressive agent; D47.3 Essential (hemorrhagic) thrombocythemia
CPT/HCPCS: 36415; 80053; 85025; 99214

== ENCOUNTER → 2023-12-14 09:35 | Outpatient (BNVA) | payer OTHER, SELFPAY | PROVIDERS: PCP Family Medicine; Visit Provider Podiatrist Foot & Ankle Surgery | DX: L60.3 Nail dystrophy (principal); I73.9 Peripheral vascular disease, unspecified | CPT/HCPCS: 11721 ==

== ENCOUNTER → 2024-01-03 07:52 | Outpatient (BNVA) | payer OTHER, SELFPAY | PROVIDERS: PCP Family Medicine; Visit Provider Nurse Practitioner Family | DX: L57.0 Actinic keratosis (principal); L82.1 Other seborrheic keratosis; L81.4 Other melanin hyperpigmentation; D22.5 Melanocytic nevi of trunk; Z85.828 Personal history of other malignant neoplasm of skin | CPT/HCPCS: 17000; 99213 ==

== ENCOUNTER 2024-01-27 11:11 | Oncology outpatient (recurring) (ONCR) | payer OTHER, SELFPAY ==
[2024-01-27 12:10] LABS: Basophils % 0.3 %; Eosinophils # 0.1 10^3/uL (0.0-0.8); Eosinophils % 1.4 %; Lymphocytes # 0.8 10^3/uL (0.8-4.8); Mean Corpuscular HGB Conc 33.2 g/dL (30-55); Mean Corpuscular Hemoglobin 39.3 pg (27-33); Mean Corpuscular Volume 118.5 fl (82-101); Mean Platelet Volume 9.6 fL (7.4-10.4); Monocytes # 0.7 10^3/uL (0.2-0.9); Monocytes % 10.3 %; Neutrophils # 5.38 10^3/uL (1.8-7.7); Nucleated Red Blood Cells % 0 %; Platelet Count 377 10^3/cmm (157-399); Red Blood Count 3.46 10^6/uL (3.85-5.65); Red Cell Distribution Width 13.7 % (12.1-15.1); White Blood Count 7.17 10^3/uL (3.29-11.43)
[2024-01-27 12:26] LABS: Alanine Aminotransferase 12 U/L (0-41); Alkaline Phosphatase 141 U/L (40-130); Blood Urea Nitrogen 16 mg/dL (8-23); Calcium 8.6 mg/dL (8.5-10.5); Carbon Dioxide 28 mmol/L (22-29); Chloride 103 mmol/L (98-107); Creatinine Clr Calc Pharmacy 77.8969; Globulin 2.9 g/dL (1.3-4.6); Glucose 92 mg/dL (65-115); Osmolality Calculated 287 mOsm/kg (285-295); Sodium 138 mmol/L (136-145); Total Bilirubin 0.5 mg/dL (0.15-1.2); Total Protein 6.9 g/dL (6.6-8.7)
[2024-01-27 12:33] LABS: Anion Gap 11.3 (5-19); Aspartate Amino Transferase 24 U/L (0-40); Lactate Dehydrogenase 260 U/L (135-225); Potassium 4.3 mmol/L (3.5-5.1)
== END 2024-02-10 23:59 | disposition home or self-care (01) ==
PROVIDERS: Internal Medicine Medical Oncology; PCP Family Medicine; Visit Provider Internal Medicine Hematology & Oncology
DX: D47.3 Essential (hemorrhagic) thrombocythemia (principal); Z79.82 Long term (current) use of aspirin; Z79.64 Long term (current) use of myelosuppressive agent; Z87.891 Personal history of nicotine dependence
CPT/HCPCS: 36415; 80053; 83615; 85025; 99214

== ENCOUNTER → 2024-03-01 09:13 | Outpatient (BNVA) | payer OTHER, SELFPAY | PROVIDERS: PCP Family Medicine; Visit Provider Specialist | DX: R26.9 Unspecified abnormalities of gait and mobility (principal); G30.9 Alzheimer's disease, unspecified; F02.80 Dementia in other diseases classified elsewhere, unspecified severity, without behavioral disturbance, psychotic disturbance, mood disturbance, and anxiety; D47.3 Essential (hemorrhagic) thrombocythemia; R41.3 Other amnesia; G31.83 Neurocognitive disorder with Lewy bodies | CPT/HCPCS: 99213; 99214 ==

== ENCOUNTER 2024-03-01 14:36 | Oncology outpatient (recurring) (ONCR) | payer OTHER, SELFPAY ==
--- OUTSIDE RECORDS SUMMARY | 2024-03-01 14:39 | XMS_ITS ---
Author Name Unknown Organization [facility] Address [address] [place] [address] Care Team Providers Care Discharge Rn Name Role Phone Hayden Hancock Primary Care Provider Unavailab SANDRA Charles Unavailable [phone] BAR HENRIQUEZ Unavailable [phone] REASON FOR VISIT 6 mo w/ fr/pvr/psa Medications Medication SIG (Take, Route, Frequency, Duration) Notes Start Date End Date Status Galantamine Hydrobromide ER 8 MG 1 capsule with breakfast Orally Once a day Active Hydroxyurea 200 MG as directed Orally Active PreserVision AREDS 2 - as directed Orally Active Tamsulosin HCl 0.4 MG 1 capsule Orally O nce a day in the evening for 90 days 02/10/2023 10/29/2024 Active Ezetimibe 10 MG 1 tablet Orally Once a day Active Felodipine Active Vitamin B 12 100 MCG as directed Orally Active Vitamin D3 2400 UNIT/ML as directed Active Aspirin 81 MG 1 tablet Orally Once a day Active Social History Tobacco Use: Social History Observation Description Date Details (start date - stop date) Former Smoker NA - NA Tobacco Use/Smoking Question Answer Notes Tobacco use: former smoker How long has it been since you last smoked? > 10 years Vital Signs Temperature 97.9 degrees Fahrenheit 11/04/19 24 Heart Rate 75 /min 11/04/2023 Height 71 in 11/04/2023 Weight 175 lbs 11/04/2023 BMI 24.4 kg/m2 11/04/2023 Height-cm 180.34 cm 11/04/2023 Weight-kg 79.38 kg 11/04/2023 Procedures Procedure Date Ordered Date Performed Result Body Sit e Bladder Scan 11/04/2023 N/A UroFlow 11/04/2023 N/A Encounters Encounter Location Date Provider Diagnosis [facility] [place] [address] [place] [address] 11/04/2023 BAR HENRIQUEZ Weak urinary stream R39.12 ; Benign localized hyperplasia of prostate with urinary obstruction N40.1 ; Nocturia R35.1 ; Feeling of incomplete bladder emptying R39.14 ; History of elevated PSA Z87.898 and Family history of prostate cancer Z80.42 Assessments Encounter Date Diagnosis (ICD Code) Assessment Notes Treatment Notes Treatment Clinical Notes 11/04/2023 Weak urinary stream (ICD-10 - R39.12) 11/04/2023 Benign localized hyperplasia of prostate with urinary obstruction (ICD-10 - N40.1) 11/04/2023 Nocturia (ICD-10 - R35.1) 11/04/2023 Feeling of incomplete bladder emptying (ICD-10 - R39.14) 11/04/2023 History of elevated PSA (ICD-10 - Z87.898) 11/04/2023 Family history of prostate cancer (ICD-10 - Z80.42) 11/04/2023 Other Uroflow: Peak effect at 7.0 ml/s with voided volume of 191.6 ml. Good dewitt curve with PVR 0ml. PSA of 2.78 this AM. He has had improvment in LUTS and decrease in PSA on Tamsulosin. Continue meds and RTC in 1 year with UA/PVR and PSA. All questions that were asked were answered. Patient satisfied with plan of care. Plan Of Treatment Medication Medication Name Sig Start Date Stop Date Notes Tamsulosin HCl 0.4 MG 1 capsule Orally O nce a day in the evening for 90 days 02/10/2023 10/29/2024 Treatment Notes Assessment Notes Other Uroflow: Peak effect at 7.0 ml/s with voided volume of 191.6 ml. Good dewitt curve with PVR 0ml. PSA of 2.78 this AM. He has had improvment in LUTS and decrease in PSA on Tamsulosin. Continue meds and RTC in 1 year with UA/PVR and PSA. All questions that were asked were answered. Patient satisfied with plan of care. Pending Test Test Name Order Date Bladder Scan 11/04/2023 UroFlow 11/04/2023 Future Test Test Name Order Date PSA-Diagnostic 10/10/2024 Next Appt Details Follow Up: 1 Year, Reason: u a/pvr and psa Provider Name:BAR HENRIQUEZ, 0 11/02/2024 10:50:00 AM, [address] [place], [address], Progress Notes * Brennon CORBETTDOB: [birth year] (73 yo M)Acc No.[id number]:11/04/2023 Progress Notes Patient:?Brennon CORBETT Provider:?GODWIN Alvarado :1950???Age:73 Y???Sex:Male Chip e:11/04/2023 Address:[address] [place], [place] [id number] Pcp:Hayden Hancock Subjective: * Chief Complaints: * ???6 mo w/ fr/pvr/psa * HPI: ???Migrated HPI:? Mr. Corbett is a 72-yo male patient of Dr. Mcclendon referred by the [facility] for BPH. He notes to have difficulty emptying his bladder. He denies hematuria or UTIs. He is not on any prostate medications. He has a h/o elevated PSA of 5.2 in 2019, last labs in 10/2022 revealed PSA of 4.13. He has a family h/o prostate cancer. PVR 0. IPSS 13. QoL 2. He was trialed on Tamsulosin. At [facility] in 04/2023, patient?reported great improvement in strength of stream and decreased nocturia to 0-1x on Tamsulosin. Denies any bothersome s/e. Improved IPSS to 5, QOL 1. Patient presents today for 6 month follow up. PSA of 2.78 this AM. He continues to be pleased with improved LUTS on Tamsulosin. Denies dysuria or hematuria.? PSA 2.78 on 11/04/23 4.13 on 11/05/22 3.56 on 04/06/19 5.2 on 03/22/19 2.68 on 05/07/18 4.23 on 06/14/17 4.07 on 06/03/17 1.69 on 07/01/16. * ROS:?General / Constitutional:?Patient denies?fever, chills, night sweats, change in appetite.?Respiratory:?Patient denies?cough, shortness of breath.?Cardiovascular:?Patient denies?chest pain, dizziness, palpitations.?Gastrointestinal:?Patient denies?abdominal pain, nausea, vomiting, change in bowel habits.?Genitourinary:?Patient denies?As documented in HPI.? * Medical History:? * Surgical History:?testicular surgery hernia repair knee replacement * Hospitalization/Major Diagno stic Procedure:?see surgeries * Family History:?Father: dece ased, lung cancer.?Mother: , dementia.? * Social History:?Tobacco Use:?Tobacco Use/Smoking?Tobacco use:?former smoker,?How long has it been since you last smoked??> 10 years.? * Medications:?TakingFelodipin e Aspirin 81 MG Tablet Chewable 1 tablet Orally Once a day Vitamin D3 2400 UNIT/ML Liquid as directed Vitamin B 12 100 MCG Lozenge as directed Orally Ezetimibe 10 MG Tablet 1 tablet Orally Once a day Galantamine Hydrobromide ER 8 MG Capsule Extended Release 24 Hour 1 capsule with breakfast Orally Once a day PreserVision AREDS 2 - Capsule as directed Orally Hydroxyurea 200 MG Capsule as directed Orally Tamsulosin HCl 0.4 MG Capsule 1 capsule Orally Once a day Taking Felodipine Taking Aspirin 81 MG Tablet Chewable 1 tablet Orally Once a day Taking Vitamin D3 2400 UNIT/ML Liquid as directed Taking Vitamin B 12 100 MCG Lozenge as directed Orally Taking Ezetimibe 10 MG Tablet 1 tablet Orally Once a day Taking Galantamine Hydrobromide ER 8 MG Capsule Extended Release 24 Hour 1 capsule with breakfast Orally Once a day Taking PreserVision AREDS 2 - Capsule as directed Orally Taking Hydroxyurea 200 MG Capsule as directed Orally Taking Tamsulosin HCl 0.4 MG Capsule 1 capsule Orally Once a day * Allergies:?no[Allergies Veri fied] Objective: * Vitals:?HR:75/min, Temp:97.9 F, Wt:175lbs, Wt-k.38 kg, Ht: 71 in, Ht-cm: 180.34 cm, BMI:24.4Index, Body Surface Area: 1.99. * Examination: ???General Examination: ?General appearance:?alert, male, well-nourished and in no acute distress.?Skin:?skin is warm and dry, with no rashes, good skin turgor and normal hair distribution.?Heart:?regular rate.?Lungs:?symmetrical, non labored respirations.?Abdomen:?soft, non tender, non distended.?Back:?no CVA tenderness.? Assessment: * Assessment: 1.?Benign localized hyperpla [place] of prostate with urinary obstruction - N40.1 (Primary)???2.?Weak urinary stream - R39.12???3.?Nocturia - R35.1???4.?Feeling of incomplete bladder emptying - R39.14???5.?History of elevated PSA - Z87.898???6.?Family history of prostate cancer - Z80.42??? Plan: * Treatment: 2.?Feeling of incomplete mark dder emptying?Procedure: Bladder Scan 3.?History of elevated PSA?LAB: PSA-Diagnostic (Ordered for 10/10/2024) 4.?Family history of prostat e cancer?LAB: PSA-Diagnostic (Ordered for 10/10/2024) 5.?Others? Notes:Uroflow: Peak effect at 7.0 ml/s with voided volume of 191.6 ml. Good dewitt curve with PVR 0ml. PSA of 2.78 this AM. He has had improvment in LUTS and decrease in PSA on Tamsulosin. Continue meds and RTC in 1 year with UA/PVR and PSA. All questions that were asked were answered. Patient satisfied with plan of care.?? * Procedure Codes:?24565 ELECT RO-UROFLOWMETRY, [id number] US URINE CAPACITY MEASURE * Follow Up:?1 Year (Reason: u a/pvr and psa) * Billing Information: * Visit Code:? 53653 Office Visit, Est Pt., Level 4. * Procedure Codes:? 02933 ELECTRO-UROFLOWMETRY, FIRST. 02507 US URINE CAPACITY MEASURE. * Sign off status: Completed true * Provider:?Bar Henriquez APRN-RAT POISONER Date:?10/11 Generated for Lisa mcclendon/Chaim/Hemantitting on:?03/01/2024 02:39 PM CARBONATION EQUIPMENT OPERATOR History and Physical Notes * Examination Category Sub-Category Detail Notes General Examination General appearance: alert, m rae, well-nourished and in no acute distress Heart: regular rate Lungs: symmetrical, non lab ored respirations Abdomen: soft, non tender, no n distended Skin: skin is warm and dry , with no rashes, good skin turgor and normal hair distribution Back: no CVA tenderness
--- OUTSIDE RECORDS SUMMARY | 2024-03-01 14:39 | XMS_ITS ---
Author Name Unknown Organization [facility] Address [address] [place] [address] Care Team Providers Care Blast Furnace Supervisor Name Role Phone Hayden Hancock Primary Care Provider SANDRA Cooley Unavailable [phone] Allergies No Known Allergies Results Component Value Reference Range Notes Urinalysis, Routine Reviewed date:02/21/2023 06:03:08 PM Interpretation: Performing Lab: Notes/Report: Urine-Color yellow Appearance slightly cloudy Glucose - Bilirubin - Ketones - Specific [place] 1.015 Occult Blood - pH 6.0 Urine Protein - Urobilinogen,Semi-Qn - Nitrite, Urine - WBC Esterase trace Urinalysis Gross Exam - REASON FOR VISIT BPH Medications Medication SIG (Take, Route, Frequency, Duration) Notes Start Date End Date Status PreserVision AREDS 2 - as directed Orally Active Hydroxyurea 200 MG as directed Orally Active Ezetimibe 10 MG 1 tablet Orally Once a day Active Galantamine Hydrobromide ER 8 MG 1 capsule with breakfast Orally Once a day Active Vitamin B 12 100 MCG as directed Orally Active Tamsulosin HCl 0.4 MG 1 capsule Orally O nce a day for 30 days 02/10/2023 06/09/2023 Active Felodipine Active Aspirin 81 MG 1 tablet Orally Once a day Active Vitamin D3 2400 UNIT/ML as directed Active Social History Tobacco Use: Social History Observation Description Date Details (start date - stop date) Former Smoker NA - NA Tobacco Use/Smoking Question Answer Notes Tobacco use: former smoker How long has it been since you last smoked? > 10 years Problems Problem Type SNOMED Code ICD Code Onset Dates Problem Status W/U Status Risk Notes Problem Incomplete emptying of bladder (857635156) Incomplete emptying of bladder (R33.9) Active confirmed Problem Family history of prostate cancer (294783250) Family history of prostate cancer (Z80.42) Active confirmed Vital Signs Temperature 97.9 degrees Fahrenheit 02/11/20 Height 71 in 02/10/2023 Weight 175 lbs 02/10/2023 BMI 24.4 kg/m2 02/10/2023 Height-cm 180.34 cm 02/10/2023 Weight-kg 79.38 kg 02/10/2023 Encounters Encounter Location Date Provider Diagnosis [facility] [address] [place] [address] 02/10/2023 SANDRA MCCLENDON Benign localized hyperplasia of prostate with urinary obstruction N40.1 ; Feeling of incomplete bladder emptying R39.14 ; Family history of prostate cancer Z80.42 ; Benign enlargement of prostate N40.0 and Incomplete emptying of bladder R33.9 Assessments Encounter Date Diagnosis (ICD Code) Assessment Notes Treat ment Notes Treatment Clinical Notes 02/10/2023 Benign localized hyperplasia of prostate with urinary obstruction (ICD-10 - N40.1) 02/10/2023 Feeling of incomplete bladder emptying (ICD-10 - R39.14) 02/10/2023 Family history of prostate cancer (ICD-10 - Z80.42) 02/10/2023 Benign enlargement of prostate (ICD-10 - N40.0) 02/10/2023 Incomplete emptying of bladder (ICD-10 - R33.9) 02/10/2023 Other PVR 0 Plan Of Treatment Medication Medication Name Sig Start Date Stop Date Notes Tamsulosin HCl 0.4 MG 1 capsule Orally O nce a day for 30 days 02/10/2023 06/09/2023 Treatment Notes Assessment Notes Other PVR 0 Next Appt Details Follow Up: 2 Months, Reason: Provider Name:RYLIE HENRIQUEZ, 0 11/02/2024 10:50:00 AM, [address] [place], [address], Progress Notes * ASADBrennon JORDANBASIM: 9 (72 yo M)Acc No.[id number]:02/10/2023 Progress Notes Patient:?Brennon CORBETT Provider:?SANDRA MCCLENDON MD :1950???Age:72 Y???Sex:Male Chip e:02/10/2023 Address:[address] [place], [place] [id number] Pcp:Hayden Hancock Subjective: * Chief Complaints: * ???1. BPH. * HPI: ???Migrated HPI:? The patient is a 72-yo male, referred by the [place] for BPH. He notes to have difficulty emptying his bladder. He denies hematuria or UTIs. He is not on any prostate medications. He has a h/o elevated PSA. PSA 4.13 on 11/05/22, 3.56 on 04/06/19, 5.2 on 03/22/19, 2.68 on 05/07/18, 4.23 on 06/14/17, 4.07 on 06/03/17 and 1.69 on 07/01/16. He has a h/o of bilateral inguinal hernia repair. He has a family h/o prostate cancer. PVR 0. IPSS 13. QoL 2. * ROS:?General / Constitutional:?Patient denies?chills, fever, weight loss, good appetite.?ENT:?Patient denies?nasal congestionrhinorrhea or epistaxis.?Respiratory:?Patient denies?chronic cough, hemoptysis.?Cardiovascular:?Patient denies?substernal chest pain or palpitations, dyspnea with exertion.?Gastrointestinal:?Patient denies?constipation, rectal bleeding, weight loss, abdominal pain.?Hematology:?Patient denies?easy bruising, bleeding problems.?Genitourinary:?Patient denies?Documented in HPI.?Musculoskeletal:?Patient denies?arthritis / arthralgia, joint stiffness or swelling or redness.?Neurologic:?Patient denies?seizures, headache, difficulty speaking.?Psychiatric:?Patient denies?depressed mood, suicidal thoughts.? * Medical History:?Umbilical h ernia, Migraine headaches, Spinal menigitis, Bronchitis, Asthma, Hypotension. * Surgical History:?testicular surgery , hernia repair , knee replacement . * Hospitalization/Major Diagno stic Procedure:?see surgeries . * Family History:?Father: dece ased, lung cancer.?Mother: , dementia.? * Social History:?Tobacco Use:?Tobacco Use/Smoking?Tobacco use:?former smoker,?How long has it been since you last smoked??> 10 years.? * Medications:?Taking Felodipi ne , Taking Aspirin 81 MG Tablet Chewable 1 tablet Orally Once a day , Taking Vitamin D3 2400 UNIT/ML Liquid as directed , Taking Vitamin B 12 100 MCG Lozenge as directed Orally , Taking Ezetimibe 10 MG Tablet 1 tablet Orally Once a day , Taking Galantamine Hydrobromide ER 8 MG Capsule Extended Release 24 Hour 1 capsule with breakfast Orally Once a day , Taking PreserVision AREDS 2 - Capsule as directed Orally , Taking Hydroxyurea 200 MG Capsule as directed Orally , Medication List reviewed and reconciled with the patient * Allergies:?N.K.D.A. Objective: * Vitals:?O2 Source: RA, Temp: 97.9F, Wt:175lbs, Wt-k.38 kg, Ht: 71 in, Ht-cm: 180.34 cm, BMI:24.4Index, Body Surface Area: 1.99. * Examination: ???General Examination: ?General appearance:?alert, pleasant, well-nourished and in no acute distress.?Head:?normocephalic, atraumatic.?Eyes:?conjunctiva clear, normal.?Neck / thyroid:?Neck is supple, no palpable cervical lymphadenopathy.?Skin:?with no suspicious skin lesions, normal skin turgor.?Heart:?regular rate and rhythm without murmurs, gallops, clicks or rubs.?Lungs:?clear to auscultation bilaterally.?Abdomen:?soft, nontender with normoactive bowel sounds in all four quadrants, No palpable organomegaly. No peritoneal signs. No shifting dullness..?Musculoskeletal:?No clubbing, cyanosis, or edema. No calf tenderness. Free range of motion in all extremities..?Neurologic:?No focal deficits, muscle strength 5/5 in all extremities..?Psych:?cooperative with exam.? Assessment: * Assessment: 1.?Benign localized hyperpla [place] of prostate with urinary obstruction - N40.1 (Primary)?2.?Feeling of incomplete bladder emptying - R39.14?3.?Family history of prostate cancer - Z80.42?4.?Benign enlargement of prostate - N40.0?5.?Incomplete emptying of bladder - R33.9? 72-yo male with BPH/LUTs, fa darren h/o prostate cancer and incomplete emptying. IPSS 13. PVR 0. For his c/o difficulty emptying his bladdder, I recommended starting Flomax. I explained this medication in detail, including possible side effects. He elects to start this. PSA 4.13 on 11/05/22. I explained to him that his PSA is normal for his age. RTC to see Rylie Henriquez APRN, in 2 months with UA/PVR. RTC or call sooner with any concerns. The patient voices understanding and agrees with the plan. All of his questions were answered to his satisfaction. Plan: - Start Flomax 0.4 mg daily - RTC to see Rylie Henriquez APRN, in 2 months with UA/PVR - RTC or call sooner with any concerns IAdele Scribe, am scribing for, and in the presence of, Dr. Mcclendon. I, Dr. Sandra Mcclendon, personally performed the services prescribed in this documentation, as scribed by Adele Fields, in my presence, and it is both accurate and complete. Plan: * Treatment: ? Value Reference Range ?Urine-Color yellow * ?Appearance slightly cloudy * ?Glucose - * ?Bilirubin - * ?Ketones - * ?Specific [place] 1.015 * ?Occult Blood - * ?pH 6.0 * ?Urine Protein - * ?Urobilinogen,Semi-Qn - * ?Nitrite, Urine - * ?WBC Esterase trace * ?Urinalysis Gross Exam - 2.?Others? Notes: PVR 0?? * Procedure Codes:?88905 URINA LYSIS, AUTO, W/O SCOPE, 33978 US URINE CAPACITY MEASURE * Follow Up:?2 Months * Billing Information: * Visit Code:? 59771 Office Visit, New Pt., Level 4. * Procedure Codes:? 71485 URINALYSIS, AUTO, W/O SCOPE. 35067 US URINE CAPACITY MEASURE. * T FITTER Sign off status: Completed true * Provider:?SANDRA MCCLENDON MD Date:?04/2022 Generated for Khadrai ng/Fafrankig/eTransmitting on:?03/01/2024 02:39 PM WAIST FITTER History and Physical Notes * Examination Category Sub-Category Detail Notes General Examination General appearance: alert, p leasant, well-nourished and in no acute distress Head: normocephalic, atrau matic Eyes: conjunctiva clear, n ormal Neck / thyroid: Neck is supple, no p alpable cervical lymphadenopathy Heart: regular rate and rhy thm without murmurs, gallops, clicks or rubs Lungs: clear to auscultatio n bilaterally Abdomen: soft, nontender with normoactive bowel sounds in all four quadrants, No palpable organomegaly. No peritoneal signs. No shifting dullness. Neurologic: No focal deficits, m uscle strength 5/5 in all extremities. Skin: with no suspicious s kin lesions, normal skin turgor Musculoskeletal: No clubbing, cyanosi s, or edema. No calf tenderness. Free range of motion in all extremities. Psych: cooperative with exa m
--- OUTSIDE RECORDS SUMMARY | 2024-03-01 14:39 | XMS_ITS | Patient Health Record ---
Author Name Unknown Organization [facility] Address [address] [place] [address] Care Team Providers Care Hay Baler Name Role Phone Hayden Hancock Primary Care Provider Unavailab SANDRA Charles Unavailable [phone] BAR FLORES Unavailable [phone] Allergies No Known Allergies Results Component Value Reference Range Notes Urinalysis, Routine Reviewed date:04/15/2023 01:16:49 PM Interpretation: Performing Lab: Notes/Report: Urine-Color yellow Appearance clear Glucose - Bilirubin - Ketones - Specific [place] 1.030 Occult Blood - pH 6.0 Urine Protein trace Urobilinogen,Semi-Qn - Nitrite, Urine - WBC Esterase trace PSA-Diagnostic Reviewed date:11/04/2023 10:11:15 AM Interpretation: Performing Lab: Notes/Report: PSA 2.78 .00-4.00 NG/ML PSA concentrations, regardless of the value, should not be interpreted as definitive evidence for the presence or absence of prostate cancer. Testing performed at: [address] [address] CLIA ID [id number] Reason For Referral No Information Medications Medication SIG (Take, Route, Frequency, Duration) Notes Start Date End Date Status Galantamine Hydrobromide ER 8 MG 1 capsule with breakfast Orally Once a day Active Hydroxyurea 200 MG as directed Orally Active PreserVision AREDS 2 - as directed Orally Active Felodipine Active Tamsulosin HCl 0.4 MG 1 capsule Orally O nce a day in the evening for 90 days 02/10/2023 10/29/2024 Active Ezetimibe 10 MG 1 tablet Orally Once a day Active Vitamin B [...] Problem Status W/U Status Risk Notes Problem Lower urinary tract symptoms due to benign prostatic hypertrophy (84280994832986) Benign localized hyperplasia of prostate with urinary obstruction (N40.1) Active confirmed Problem Benign enlargement of prostate (365250359) Benign enlargement of prostate (N40.0) Active confirmed Problem Family history of prostate cancer (317803833) Family history of prostate cancer (Z80.42) Active confirmed Problem Incomplete emptying of bladder (196389425) Incomplete emptying of bladder (R33.9) Active confirmed Vital Signs Heart Rate 75 /min 11/04/2023 Temperature 97.9 degrees Fahrenheit 11/04/2023 Blood pressure diastolic 69 mm Hg 04/15/2023 Height-cm 180.34 cm 11/04/2023 Weight-kg 79.38 kg 11/04/2023 Height 71 in 11/04/2023 Blood pressure systolic 105 mm Hg 04/15/2023 Weight 175 lbs 11/04/2023 BMI 24.4 kg/m2 11/04/2023 Procedures Procedure Date Ordered Date Performed Result Body Sit e Bladder Scan 04/15/2023 04/15/2023 N/A Bladder Scan 11/04/2023 N/A UroFlow 11/04/2023 N/A Encounters Encounter Location Date Provider Diagnosis [facility] [place] [address] [place] [address] 04/15/2023 BAR FLORES Weak urinary stream R39.12 ; Benign localized hyperplasia of prostate with urinary obstruction N40.1 ; Nocturia R35.1 ; Feeling of incomplete bladder emptying R39.14 ; History of elevated PSA Z87.898 and Family history of prostate cancer Z80.42 [facility], [facility] [address] [place] [address] 11/04/2023 BAR FLORES Weak urinary stream R39.12 ; Benign localized hyperplasia of prostate with urinary obstruction N40.1 ; Nocturia R35.1 ; Feeling of incomplete bladder emptying R39.14 ; History of elevated PSA Z87.898 and Family history of prostate cancer Z80.42 Assessments Encounter Date Diagnosis (ICD Code) Assessment Notes Treatment Notes Treatment Clinical Notes 04/15/2023 Weak urinary stream (ICD-10 - R39.12) 11/04/2023 Weak urinary stream (ICD-10 - R39.12) 11/04/2023 Benign localized hyperplasia of prostate with urinary obstruction (ICD-10 - N40.1) 04/15/2023 Benign localized hyperplasia of prostate with urinary obstruction (ICD-10 - N40.1) 04/15/2023 Nocturia (ICD-10 - R35.1) 04/15/2023 Feeling of incomplete bladder emptying (ICD-10 - R39.14) 11/04/2023 Nocturia (ICD-10 - R35.1) 11/04/2023 Feeling of incomplete bladder emptying (ICD-10 - R39.14) 04/15/2023 History of elevated PSA (ICD-10 - Z87.898) 04/15/2023 Family history of prostate cancer (ICD-10 - Z80.42) 11/04/2023 History of elevated PSA (ICD-10 - Z87.898) 11/04/2023 Family history of prostate cancer (ICD-10 - Z80.42) 04/15/2023 Other UA is clear, PV R minimal. He is doing well with improvement in symptoms since starting Tamsulosin. Refills sent at last visit. He will RTC in 6 months with FR/PVR and PSA. All questions that were asked were answered. Patient is satisfied with plan of care. 11/04/2023 Other Uroflow: Peak effect at 7.0 [...] with plan of care. Plan Of Treatment Pending Test Test Name Order Date Bladder Scan 11/04/2023 UroFlow 11/04/2023 Future Test Test Name Order Date PSA, TOTAL (5363) 10/11/2023 Next Appt Details Provider Name:BAR FLORES, 0 11/02/2024 10:50:00 AM, [address] [place], [address], Insurance Providers Payer Name Payer Address Payer Phone Subscriber Number Group Number Insured Name Patient Relationship to Insured Coverage Start Date Coverage End Date [employer] [address] [place], [place] [id number] Brennon Melendez Self - patient is the insured Medical (General) History Medical History History ICD Code umbilical hernia migraine headaches spinal menigitis bronchitis asthma hypotension Surgical History Surgery Date(Month/Year) testicular surgery hernia repair knee replacement Hospitalization History Reason Date(Month/Year) see surgeries
--- OUTSIDE RECORDS SUMMARY | 2024-03-01 14:39 | XMS_ITS ---
Author Name Unknown Organization [facility] Address [address] [place] [address] Care Team Providers Care Kiln Firer Name Role Phone Hayden Hancock Primary Care Provider Unavailab SANDRA Charles Unavailable [phone] RYLIE HENRIQUEZ Unavailable [phone] Allergies No Known Allergies Results Component Value Reference Range Notes Urinalysis, Routine Reviewed date:04/15/2023 01:16:49 PM Interpretation: Performing Lab: Notes/Report: Urine-Color yellow Appearance clear Glucose - Bilirubin - Ketones - Specific [place] 1.030 Occult Blood - pH 6.0 Urine Protein trace Urobilinogen,Semi-Qn - Nitrite, Urine - WBC Esterase trace REASON FOR VISIT 2 mo w/ ua/pvr/ipss Medications Medication SIG (Take, Route, Frequency, Duration) Notes Start Date End Date Status Tamsulosin HCl 0.4 MG 1 capsule Orally O nce a day 02/10/2023 Active Galantamine Hydrobromide ER 8 MG 1 capsule with breakfast Orally Once a day Active Ezetimibe 10 MG 1 tablet Orally Once a day Active Hydroxyurea 200 MG as directed Orally Active PreserVision AREDS 2 - as directed Orally Active Vitamin B 12 100 MCG as directed Orally Active Vitamin D3 2400 UNIT/ML as directed Active Felodipine Active Aspirin 81 MG 1 tablet Orally Once a day Active Problems Problem Type SNOMED Code ICD Code Onset Dates Problem Status W/U Status Risk Notes Problem Lower urinary tract symptoms due to benign prostatic hypertrophy (99723527420948) Benign localized hyperplasia of prostate with urinary obstruction (N40.1) Active confirmed Vital Signs Blood pressure systolic 105 mm Hg 04/15/19 24 Blood pressure diastolic 69 mm Hg 024 Heart Rate 76 /min 04/15/2023 Height 71 in 04/15/2023 Weight 175 lbs 04/15/2023 BMI 24.4 kg/m2 04/15/2023 Height-cm 180.34 cm 04/15/2023 Weight-kg 79.38 kg 04/15/2023 Procedures Procedure Date Ordered Date Performed Result Body Sit e Bladder Scan 04/15/2023 04/15/2023 N/A Encounters Encounter Location Date Provider Diagnosis [facility] [address] [place] [address] 04/15/2023 RYLIE MARK Weak urinary stream R39.12 ; Benign localized hyperplasia of prostate with urinary obstruction N40.1 ; Nocturia R35.1 ; Feeling of incomplete bladder emptying R39.14 ; History of elevated PSA Z87.898 and Family history of prostate cancer Z80.42 Assessments Encounter Date Diagnosis (ICD Code) Assessment Notes Treatment Notes Treatment Clinical Notes 04/15/2023 Weak urinary stream (ICD-10 - R39.12) 04/15/2023 Benign localized hyperplasia of prostate with [...] Patient is satisfied with plan of care. Plan Of Treatment Medication Medication Name Sig Start Date Stop Date Notes Tamsulosin HCl 0.4 MG 1 capsule Orally Once a day 02/11/20 23 Treatment Notes Assessment Notes Other UA is clear, PVR min imal. He is doing well with improvement in symptoms since starting Tamsulosin. Refills sent at last visit. He will RTC in 6 months with FR/PVR and PSA. All questions that were asked were answered. Patient is satisfied with plan of care. Future Test Test Name Order Date PSA, TOTAL (5363) 10/11/2023 Next Appt Details Follow Up: 6 Months, Reason: w/ PSA, FR/PVR Provider Name:RYLIE HENRIQUEZ, Sarita 11/02/2024 10:50:00 AM, [address] [place], [address], Progress Notes * Brennon CORBETTDOB: 9 (72 yo M)Acc No.[id number]:04/15/2023 Progress Notes Patient:?Brennon CORBETT Provider:?GODWIN Alvarado :1950???Age:72 Y???Sex:Male Chip e:04/15/2023 Address:[address] [place], [place] [address] Pcp:Hayden Hancock Subjective: * Chief Complaints: * ???1. 2 mo w/ ua/pvr/ipss. * HPI: ???Migrated HPI:? Mr. Corbett is a 72-yo male patient of Dr. Mcclendon referred by the [place] for BPH. He notes to have difficulty emptying his bladder. He denies hematuria or UTIs. He is not on any prostate medications. He has a h/o elevated PSA of 5.2 in 2019, last labs in 10/2022 revealed PSA of 4.13. He has a family h/o prostate cancer. PVR 0. IPSS 13. QoL 2. He was trialed on Tamsulosin, ?Patient presents today for 2 month follow up. He notes great improvement in strength of stream and decreased nocturia to 0-1x on Tamsulosin. Denies any bothersome s/e. No dysuria, hematuria, fever, or SP tenderness. Improved IPSS to 5, QOL 1. ?PSA ?4.13 on 11/05/22 ?3.56 on 04/06/19 ?5.2 on 03/22/19 ?2.68 on 05/07/18 ?4.23 on 06/14/17 ?4.07 on 06/03/17 ?1.69 on 07/01/16. * ROS:?General / Constitutional:?Patient denies?fever, chills, night sweats, change in appetite.?Respiratory:?Patient denies?cough, shortness of breath.?Cardiovascular:?Patient denies?chest pain, dizziness, palpitations.?Gastrointestinal:?Patient denies?abdominal pain, nausea, vomiting, change in bowel habits.?Genitourinary:?Patient denies?As documented in HPI.? * Medical History:?Umbilical h ernia, Migraine headaches, Spinal menigitis, Bronchitis, Asthma, Hypotension. * Surgical History:?testicular surgery , hernia repair , knee replacement . * Hospitalization/Major Diagno stic Procedure:?see surgeries . * Family History:?Father: dece ased, lung cancer.?Mother: , dementia.? * Medications:?Taking Felodipi ne , Taking Aspirin [...] 200 MG Capsule as directed Orally , Taking Tamsulosin HCl 0.4 MG Capsule 1 capsule Orally Once a day , stop date 06/09/2023, Medication List reviewed and reconciled with the patient * Allergies:?N.K.D.A. Objective: * Vitals:?BP:105/69mm Hg, HR:7 6/min, Wt:175lbs, Wt-k.38 kg, Ht: 71 in, Ht-cm: [...] of prostate with urinary obstruction - N40.1 (Primary)?2.?Weak urinary stream - R39.12?3.?Nocturia - R35.1?4.?Feeling of incomplete bladder emptying - R39.14?5.?History of elevated PSA - Z87.898?6.?Family history of prostate cancer - Z80.42? Plan: * Treatment: 2.?History of elevated PSA?LAB: PSA, TOTAL (5363) (Ordered for 10/11/2023) 3.?Family history of prostat e cancer?LAB: PSA, TOTAL (5363) (Ordered for 10/11/2023) 4.?Others? Notes: UA is clear, PVR minimal. He is doing well with improvement in symptoms since starting Tamsulosin. Refills sent at last visit. He will RTC in 6 months with FR/PVR and PSA. All questions that were asked were answered. Patient is satisfied with plan of care. ?? * Labs:? * ?Lab: Urinalysis, Routin e (Collection Date & Time - 04/15/2023) ? Value Reference Range ?Urine-Color yellow * ?Appearance clear * ?Glucose - * ?Bilirubin - * ?Ketones - * ?Specific [place] 1.030 * ?Occult Blood - * ?pH 6.0 * ?Urine Protein trace * ?Urobilinogen,Semi-Qn - * ?Nitrite, Urine - * ?WBC Esterase trace * Procedure Orders:? * ?Procedure: Bladder Scan (Performed Date - 04/15/2023) * Procedure Codes:?93019 US UR INE CAPACITY MEASURE, 59847 URINALYSIS, AUTO, W/O SCOPE * Follow Up:?6 Months (Reason: w/ PSA, FR/PVR) * Billing Information: * Visit Code:? 67615 Office Visit, Est Pt., Level 3. * Procedure Codes:? 15150 US URINE CAPACITY MEASURE. 99400 URINALYSIS, AUTO, W/O SCOPE. * YMASTER Sign off status: Completed true * Provider:?Rylie Henriquez APRN-STORE ADMINISTRATIVE ASSISTANT Date:?07/2023 Generated for Lisa mcclendon/Chaim/eTransmitting on:?03/01/2024 02:39 PM CADDYMASTER History and Physical Notes * Examination Category [...]
--- OUTSIDE RECORDS SUMMARY | 2024-03-01 14:40 | XMS_ITS ---
Author Name Unknown Organization [facility] Address [address] [place] [address] Care Team Providers Care Permit Technician Name Role Phone Anum Karimi MD Primary Care Provider UnavailAllison Barnes Unavailable [phone] [place], [place] Unavailable Unavailable Allergies No Known Allergies REASON FOR VISIT It's time for my colonoscopy Medications Medication SIG (Take, Route, Frequency, Duration) Notes Start Date End Date Status Albuterol Sulfate HFA 108 (90 Base) MCG/ACT 1 puff as needed Inhalation every 4 hrs Active Fluticasone-Salmeterol 500-50 MCG/ACT 1 puff Inhalation Twice a day Active Polyethylene Glycol 3350 17 GM/SCOOP 1 scoop mixed with 8 ounces of fluid Orally Once a day Active QUEtiapine Fumarate 50 MG 1 tablet at be dtime Orally Once a day Active guaiFENesin 400 MG 1 tablet as needed Orally every 4 hrs Active Golytely 236 GM as directed Orally o nce for 1 day 08/31/2023 09/01/2023 Active Reglan 10 MG 1 tablet as directed Orally once for 1 day 08/31/2023 Active Triamcinolone Acetonide 0.1 % 1 application Externally Two times a Week Active Hydroxyurea 500 MG 1 capsule, alternate with 2 capsules every other day Orally Once a day Active Cholecalciferol 25 MCG (1000 UT) 1 capsule Orally Once a day Active Ezetimibe 10 MG 1 tablet Orally Once a day Active Tamsulosin HCl 0.4 MG 1 capsule Orally O nce a day Active Albuterol Sulfate 1.25 MG/3ML 3 ml as needed Inhalation every 6 hrs PRN for 10 days 05/16/2011 Active Galantamine Hydrobromide 8 MG 1 tablet with meals Orally Twice a day Active Famotidine 20 MG 1 tablet Orally Once a day Active Cyanocobalamin 500 MCG 1 tablet Orally O nce a day Active Miconazole Nitrate 2 % 1 application Externally Twice a day Active Social History Tobacco Use: Social History Observation Description Date Details (start date - stop date) Never Smoker NA - NA Tobacco Control (Standard) Question Answer Notes Tobacco use: Nonsmoker AUDIT-C (Standard) Question Answer Notes Did you have a drink containing alcohol in the p ast year? No Points 0 Interpretation Negative Vital Signs Temperature 97.4 degrees Fahrenheit 08/31/19 24 Blood pressure systolic 92 mm Hg 08/31/19 24 Blood pressure diastolic 60 mm Hg 024 Heart Rate 73 /min 08/31/2023 Respiratory Rate 18 /min 08/31/2023 Height 69 in 08/31/2023 Weight 178.8 lbs 08/31/2023 BMI 26.4 kg/m2 08/31/2023 Oximetry 96 % 08/31/2023 Height-cm 175.26 cm 08/31/2023 Weight-kg 81.1 kg 08/31/2023 Encounters Encounter Location Date Provider Diagnosis [facility] [address] [place] [address] 08/31/2023 Allison Botello Preprocedural examination Z01.818 and Screening for colon cancer Z12.11 Assessments Encounter Date Diagnosis (ICD Code) Assessment Notes Treat ment Notes Treatment Clinical Notes 08/31/2023 Preprocedural examination (ICD-10 - Z01.818) The patient has a prerequisite risk factors for development of colon cancer. I have discussed the options of diagnostic testing with their advantages and disadvantages. I have recommended a screening colonoscopy with possible biopsy and polypectomy. Risks and Benefits: The benefits, risks, and complications were presented to pt. The patient is aware of the risk of bleeding, perforation, infection, and anesthetic complications related to colonoscopy. The patient is aware that although colonoscopy is an accurate procedure, it does have some limitations. As a result, some lesions, including cancer may be missed by colonoscopy. Ample time was given to answer all questions. Instructions given for the bowel prep. Follow up will be determined after the colonoscopy. Refer back to PCP. 08/31/2023 Screening for colon cancer (ICD-10 - Z12.11) 08/31/2023 Other Colonoscopy: Be fore Your Procedure material was printed, Learning About Foods That Are Good Sources of Fiber material was printed Plan Of Treatment Medication Medication Name Sig Start Date Stop Date Notes Golytely 236 GM as directed Orally once for 1 day 08/31/19 24 09/01/2023 Reglan 10 MG 1 tablet as directed Orally once for 1 day 08/31/2023 Treatment Notes Assessment Notes Preprocedural examination The patient has a prerequisite risk factors for development of colon cancer. I have discussed the options of diagnostic testing with their advantages and disadvantages. I have recommended a screening colonoscopy with possible biopsy and polypectomy. Risks and Benefits: The benefits, risks, and complications were presented to pt. The patient is aware of the risk of bleeding, perforation, infection, and anesthetic complications related to colonoscopy. The patient is aware that although colonoscopy is an accurate procedure, it does have some limitations. As a result, some lesions, including cancer may be missed by colonoscopy. Ample time was given to answer all questions. Instructions given for the bowel prep. Follow up will be determined after the colonoscopy. Refer back to PCP. Other Colonoscopy: Before Your Procedure material was printed, Learning About Foods That Are Good Sources of Fiber material was printed Pending Test Test Name Order Date Colonoscopy, Average Risk Screening-G012 1 08/31/2023 Progress Notes * ASADBrennon JORDAN JohnDOB:[birth year] (73 yo M)Acc No.[id number]:08/31/2023 Patient:?Brennon CORBETT Isaac n Provider:?Allison Botello APRN :1950???Age:73 Y???Sex:Male Chip e:08/31/2023 Address:[address] [place] [address], 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 It's time for my colonos copy * HPI: ???::? The patient is a 73 year old male who presents on referral from the [place] [facility] for a screening colonoscopy ffor colon cancer prevention.? His last colonoscopy was in [address] Webb with normal findings.? He denies having heartburns, he takes Famotidine 20 mg daily and does not eat any more meals? in the evening.? He takes Metamucil and Miralax daily to keep his bowel movements regular.? He denies melena, hematochezia, abdominal pain, significant weight changes or loss of appetite.? He has no family history of colon cancer or polyps. * ROS:?General - Multi System:?Constitutional?Denies, fever, chills, weakness, fatigue, poor appetite, unexplained weight loss.?Ear, Nose, Mouth, Throat?Denies any ear pain, sore throat, sinus congestion, or nasal drainage.?Cardiovascular?Denies any recent chest pain, palpitations or syncope.?Respiratory?Denies any shortness of breath, cough, or hemoptysis.?Gastrointestinal?Denies heartburn, constipation, diarrhea, nausea, blood in stools, or abdominal pain.?Musculoskeletal?Denies any joint pain or swelling, no recent trauma.?Integumentary?Denies any rashes, bruising, or skin changes. Psychiatric?Denies depression, anxiety, or suicidal thoughts/actions.? * Medical History:? * Surgical History:?Right ankl e ORIF Right testicular surgery Left knee arthroplasty ilateral CEIOLI Bilateral inguinal hernia repair Skin cancer excision, face * Hospitalization/Major Diagno stic Procedure:? * Family History:?Father: dece ased 92 yrs, lung cancer.?Mother: 89 yrs, dementia.?Paternal Grand Father: 79 yrs, stomach cancer.? No family hx of colon cancer. * Social History:?Tobacco Use:?Tobacco Control (Standard)?Tobacco use:?Nonsmoker ???Drugs/Alcohol:?Do you smoke marijuana?: Denies. ???Drug/Alcohol:?AUDIT-C (Standard)?Did you have a drink containing alcohol in the past year??No ?Points?0 ?Interpretation?Negative * Medications:?TakingCholecalc iferol 25 MCG (1000 UT) Capsule 1 capsule Orally Once a day Hydroxyurea 500 MG Capsule 1 capsule, alternate with 2 capsules every other day Orally Once a day Triamcinolone Acetonide 0.1 % Cream 1 application Externally Two times a Week guaiFENesin 400 MG Tablet 1 tablet as needed Orally every 4 hrs QUEtiapine Fumarate 50 MG Tablet 1 tablet at bedtime Orally Once a day Fluticasone-Salmeterol 500-50 MCG/ACT Aerosol Powder Breath Activated 1 puff Inhalation Twice a day Albuterol Sulfate HFA 108 (90 Base) MCG/ACT Aerosol Solution 1 puff as needed Inhalation every 4 hrs Polyethylene Glycol 3350 17 GM/SCOOP Powder 1 scoop mixed with 8 ounces of fluid Orally Once a day Miconazole Nitrate 2 % Aerosol Powder 1 application Externally Twice a day Cyanocobalamin 500 MCG Tablet 1 tablet Orally Once a day Famotidine 20 MG Tablet 1 tablet Orally Once a day Galantamine Hydrobromide 8 MG Tablet 1 tablet with meals Orally Twice a day Tamsulosin HCl 0.4 MG Capsule 1 capsule Orally Once a day Ezetimibe 10 MG Tablet 1 tablet Orally Once a day Albuterol Sulfate 1.25 MG/3ML Nebulization Solution 3 ml as needed Inhalation every 6 hrs PRN Medication List reviewed and reconciled with the patientTaking Cholecalciferol 25 MCG (1000 UT) Capsule 1 capsule Orally Once a day Taking Hydroxyurea 500 MG Capsule 1 capsule, alternate with 2 capsules every other day Orally Once a day Taking Triamcinolone Acetonide 0.1 % Cream 1 application Externally Two times a Week Taking guaiFENesin 400 MG Tablet 1 tablet as needed Orally every 4 hrs Taking QUEtiapine Fumarate 50 MG Tablet 1 tablet at bedtime Orally Once a day Taking Fluticasone-Salmeterol 500-50 MCG/ACT Aerosol Powder Breath Activated 1 puff Inhalation Twice a day Taking Albuterol Sulfate HFA 108 (90 Base) MCG/ACT Aerosol Solution 1 puff as needed Inhalation every 4 hrs Taking Polyethylene Glycol 3350 17 GM/SCOOP Powder 1 scoop mixed with 8 ounces of fluid Orally Once a day Taking Miconazole Nitrate 2 % Aerosol Powder 1 application Externally Twice a day Taking Cyanocobalamin 500 MCG Tablet 1 tablet Orally Once a day Taking Famotidine 20 MG Tablet 1 tablet Orally Once a day Taking Galantamine Hydrobromide 8 MG Tablet 1 tablet with meals Orally Twice a day Taking Tamsulosin HCl 0.4 MG Capsule 1 capsule Orally Once a day Taking Ezetimibe 10 MG Tablet 1 tablet Orally Once a day Taking Albuterol Sulfate 1.25 MG/3ML Nebulization Solution 3 ml as needed Inhalation every 6 hrs PRN Medication List reviewed and reconciled with the patient * Allergies:?N.K.D.A.no[Allerg ies Verified] Objective: * Vitals:?Ht: 69 in, Wt:178.8l bs, Wt-k.1 kg, BMI:26.4Index, Temp:97.4F, BP:92/60mm Hg, HR:73/min, RR:18/min, Oxygen sat %:96%, Ht-cm: 175.26 cm. * Examination: ???General Examination: ?GENERAL APPEARANCE:?alert, well hydrated, in no distress, converses well.?HEAD:?normocephalic, atraumatic.?EYES:?PERRL; normal conjunctiva.?ORAL CAVITY:?normal, mucosa moist, Mallampati Score Class I.?THROAT:?clear, no erythema, no exudate.?SKIN:?warm and dry.?HEART:?Regular rate and rhythm, S1 S2 normal.?LUNGS:?clear to auscultation bilaterally, no wheezes, rales, or rhonchi.?ABDOMEN:?bowel sounds present, soft, nontender, nondistended.?MUSCULOSKELETAL:?normal gait, no obvious dysfunction or atrophy.? Assessment: * Assessment: 1.?Preprocedural examination - Z01.818 (Primary)?2.?Screening for colon cancer - Z12.11? Plan: * Treatment: Notes: The patient has a prerequisite risk factors for development of colon cancer. I have discussed the options of diagnostic testing with their advantages and disadvantages. I have recommended a screening colonoscopy with possible biopsy and polypectomy. Risks and Benefits: The benefits, risks, and complications were presented to pt. The patient is aware of the risk of bleeding, perforation, infection, and anesthetic complications related to colonoscopy. The patient is aware that although colonoscopy is an accurate procedure, it does have some limitations. As a result, some lesions, including cancer may be missed by colonoscopy. Ample time was given to answer all questions. Instructions given for the bowel prep. Follow up will be determined after the colonoscopy. Refer back to PCP.??2.?Screening for colon cancer?Imaging: Colonoscopy, Average Risk Screening-G0121* Rita Foster 2023 09:28:31 AM CDT > GI-Exp 11/29/23-[id number] 3.?Others? Notes: Colonoscopy: Before Your Procedure material was printed, Learning About Foods That Are Good Sources of Fiber material was printed?? * Procedure Codes:? * Billing Information: * Visit Code:? 12392 Office Visit, New Pt., Level 3. * Procedure Codes:? 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 History and Physical Notes * Examination Category Sub-Category Detail Notes General Examination GENERAL APPEARANCE: alert, w ell hydrated, in no distress, converses well HEAD: normocephalic, atrau matic EYES: PERRL; normal conjun ctiva THROAT: clear, no erythema, no exudate HEART: Regular rate and rhy thm, S1 S2 normal LUNGS: clear to auscultatio n bilaterally, no wheezes, rales, or rhonchi ABDOMEN: bowel sounds present , soft, nontender, nondistended SKIN: warm and dry MUSCULOSKELETAL: normal gait, no obvi ous dysfunction or atrophy ORAL CAVITY: normal, mucosa moist , Mallampati Score Class I
--- OUTSIDE RECORDS SUMMARY | 2024-03-01 14:40 | XMS_ITS ---
Author Name Unknown Organization [facility] Address [address] [place] [address] Care Team Providers Care Laboratory Monitor Name Role Phone Anum Karimi MD Primary Care Provider Unavaila Allison Vela Unavailable [phone] [place], [place] Unavailable Unavailable [place], Abodunrin Unavailable [phone] REASON FOR VISIT 5yr colon recall added Encounters Encounter Location Date Provider Diagnosis [facility] [address] [place] [address] 10/19/2023 Abodunrin Jon Plan Of Treatment No Information Progress Notes * Brennon CORBETTDOB:[birth year] (73 yo M)Acc No.[id number]:10/19/2023 Patient:?ASADJULIAN Brennon Gray n :1950???Age:73 Y???Sex:Male Address:[address] [place] [address] [address], [place], [address] * true * Date:? Generated for Printi ng/Fafrankig/eTransmitting on:?03/01/2024 02:39 PM [employer]
--- OUTSIDE RECORDS SUMMARY | 2024-03-01 14:40 | XMS_ITS ---
Author Name Unknown Organization [facility] Address [address] [place] [address] Care Team Providers Care Dye Tub Operator Name Role Phone Anum Karimi MD Primary Care Provider UnavailAllison Barnes Unavailable [phone] CITLALY [place] Unavailable Unavailable Brendon Webb Unavailable [phone] REASON FOR VISIT screening colon Medications Medication SIG (Take, Route, Frequency, Duration) Notes Start Date End Date Status Triamcinolone Acetonide 0.1 % 1 application Externally Two times a Week Active Tamsulosin HCl 0.4 MG 1 capsule Orally O nce a day Active QUEtiapine Fumarate 50 MG 1 tablet at be dtime Orally Once a day Active Miconazole Nitrate 2 % 1 application Ext ernally Twice a day Active Hydroxyurea 500 MG 1 capsule, alternate with 2 capsules every other day Orally Once a day Active Famotidine 20 MG 1 tablet Orally Once a day Active Ezetimibe 10 MG 1 tablet Orally Once a day Active guaiFENesin 400 MG 1 tablet as needed Orally every 4 hrs Active Galantamine Hydrobromide 8 MG 1 tablet with meals Orally Twice a day Active Fluticasone-Salmeterol 500-50 MCG/ACT 1 puff Inhalation Twice a day Active Cyanocobalamin 500 MCG 1 tablet Orally O nce a day Active Cholecalciferol 25 MCG (1000 UT) 1 capsule Orally Once a day Active Albuterol Sulfate HFA 108 (90 Base) MCG/ACT 1 puff as needed Inhalation every 4 hrs Active Albuterol Sulfate 1.25 MG/3ML 3 ml as needed Inhalation every 6 hrs PRN for 10 days 05/16/2011 Active Social History Tobacco Use: Social History Observation Description Date Details (start date - stop date) Never Smoker NA - NA Tobacco Control (Standard) Question Answer Notes Tobacco use: Nonsmoker Encounters Encounter Location Date Provider Diagnosis [facility] [address] [place], [place] [address] 10/07/2023 Brendon Webb Screen for colon cancer Z12.11 Assessments Encounter Date Diagnosis (ICD Code) Assessment Notes Treatment Notes Treatment Clinical Notes 10/07/2023 Screen for colon cancer (ICD-10 - Z12.11) Proceed with average risk colonoscopy screening today. Plan Of Treatment Treatment Notes Assessment Notes Screen for colon cancer Proceed with ave rage risk colonoscopy screening today. 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 Screening colon. * HPI: ???Provider Note:?Mr. Corbett is a 73-year-old male patient of the [place] [facility] presenting today for screening colonoscopy. Last colonoscopy was in 2013 with normal findings.? No family history of colorectal cancer. * ROS:?General - Multi System:?Constitutional?Denies fever, chills, body aches.?.?Cardiovascular?Denies?chest pain, palpitations or syncope.?Respiratory?Denies shortness of breath.?Gastrointestinal?See HPI.?.? * Medical History:?Asthma, Art hritis, Migraines, Skin cancer, Lewy body Dementia, COPD, BPH, Sleep apnea, Spinal meningitis. * Surgical History:?Right ankl e ORIF , Right testicular surgery , Left knee arthroplasty 2020, Bilateral CEIOLI , Bilateral inguinal hernia repair , Skin cancer excision, face . * Family History:?Father: dece ased 92 yrs, lung cancer.?Mother: 89 yrs, dementia.?Paternal Grand Father: 79 yrs, stomach cancer.? No family hx of colon cancer. * Social History:?Tobacco Use:?Tobacco Control (Standard)?Tobacco use:?Nonsmoker * Medications:?Taking Cholecal ciferol 25 MCG (1000 UT) Capsule 1 capsule Orally Once a day , Taking Hydroxyurea 500 MG Capsule 1 capsule, alternate with 2 capsules every other day Orally Once a day , Taking Triamcinolone Acetonide 0.1 % Cream 1 application Externally Two times a Week , Taking guaiFENesin 400 MG Tablet 1 tablet as needed Orally every 4 hrs , Taking QUEtiapine Fumarate 50 MG Tablet 1 tablet at bedtime Orally Once a day , Taking Fluticasone-Salmeterol 500-50 MCG/ACT Aerosol Powder Breath Activated 1 puff Inhalation Twice a day , Taking Albuterol Sulfate HFA 108 (90 Base) MCG/ACT Aerosol Solution 1 puff as needed Inhalation every 4 hrs , Taking Miconazole Nitrate 2 % Aerosol Powder 1 application Externally Twice a day , Taking Cyanocobalamin 500 MCG Tablet 1 tablet Orally Once a day , Taking Famotidine 20 MG Tablet 1 tablet Orally Once a day , Taking Galantamine Hydrobromide 8 MG Tablet 1 tablet with meals Orally Twice a day , Taking Tamsulosin HCl 0.4 MG Capsule 1 capsule Orally Once a day , Taking Ezetimibe 10 MG Tablet 1 tablet Orally Once a day , Taking Albuterol Sulfate 1.25 MG/3ML Nebulization Solution 3 ml as needed Inhalation every 6 hrs PRN Objective: * Vitals:? * Examination: ???General Examination: ?GENERAL APPEARANCE:?Alert, comfortable, in no acute distress.?HEART:?Regular rate and rhythm..?LUNGS:?Non-labored respirations. Clear bilaterally. Symmetrical..?ABDOMEN:?Normal, Soft, Non-tender, positive bowel sounds.? Assessment: * Assessment: 1.?Screen for colon cancer - Z12.11 (Primary)??? Plan: * Treatment: * Billing Information: * Visit Code:? * Procedure Codes:? * Electronic signature of Hawa Webb MD on 03/01/2024 at 02:40 PM COMMODITY MANAGEMENT SPECIALIST Sign off status: Pending * Provider:Kaye Webb MD Date:?0 10/07/2023 Generated for Printi hakan/Chaim/eTransmitting on:?03/01/2024 02:40 PM COMMODITY MANAGEMENT SPECIALIST History and Physical Notes * Examination Category Sub-Category Detail Notes General Examination GENERAL APPEARANCE: Alert, c omfortable, in no acute distress HEART: Regular rate and rhy thm. LUNGS: Non-labored respirat ions. Clear bilaterally. Symmetrical. ABDOMEN: Normal, Soft, Non-te nder, positive bowel sounds
--- OUTSIDE RECORDS SUMMARY | 2024-03-01 14:40 | XMS_ITS | Patient Health Record ---
Author Name Unknown Organization [facility] Address [address] [place] [address] Care Team Providers Care [place] [place] Supervisor Name Role Phone Anum Karimi MD Primary Care Provider Unavaila Allison Vela Unavailable [phone] [place], [place] Unavailable Unavailable Brendon Webb Unavailable [phone] Allergies No Known Allergies Reason For Referral Reason Screening Recall C LAUREN Referring Provider First Name [facility] Referring Provider Last Name [facility] Referring Provider Speciality [facility] Referred Organization [facility] Referred Provider Brendon Webb Referred Address [address] [facility] [place],[address], Referral Priority Routine Medications Medication SIG (Take, Route, Frequency, Duration) Notes Start Date End Date Status Famotidine 20 MG 1 tablet Orally Once a day Active Ezetimibe 10 MG 1 tablet Orally Once a day Active Cyanocobalamin 500 MCG 1 tablet Orally O nce a day Active Cholecalciferol 25 MCG (1000 UT) 1 capsule Orally Once a day Active Triamcinolone Acetonide 0.1 % 1 application Externally Two times a Week Active Albuterol Sulfate HFA 108 (90 Base) MCG/ACT 1 puff as needed Inhalation every 4 hrs Active Tamsulosin HCl 0.4 MG 1 capsule Orally O nce a day Active Albuterol Sulfate 1.25 MG/3ML 3 ml as needed Inhalation every 6 hrs PRN for 10 days 05/16/2011 Active QUEtiapine Fumarate 50 MG 1 tablet at be dtime Orally Once a day Active Miconazole Nitrate 2 % 1 application Ext ernally Twice a day Active Hydroxyurea 500 MG 1 capsule, alternate with 2 capsules every other day Orally Once a day Active guaiFENesin 400 MG 1 tablet as needed Orally every 4 hrs Active Galantamine Hydrobromide 8 MG 1 tablet with meals Orally Twice a day Active Fluticasone-Salmeterol 500-50 MCG/ACT 1 puff Inhalation Twice a day Active Social History Tobacco Use: Social History Observation Description Date Details (start date - stop date) Never Smoker NA - NA Tobacco Control (Standard) Question Answer Notes Tobacco use: Nonsmoker AUDIT-C (Standard) Question Answer Notes Did you have a drink containing alcohol in the p ast year? No Points 0 Interpretation Negative Problems Problem Type SNOMED Code ICD Code Onset Dates Problem Status W/U Status Risk Notes Problem Acute bronchitis (58851783) Acute bronchitis (466.0) Active confirmed Problem Diverticular disease of colon (168882455) Diverticulosis large intestine w/o perforation or abscess w/o bleeding (K57.30) Active confirmed Vital Signs Heart Rate 73 /min 08/31/2023 Temperature 97.4 degrees Fahrenheit 08/31/2023 Respiratory Rate 18 /min 08/31/2023 Height-cm 175.26 cm 08/31/2023 Oximetry 96 % 08/31/2023 Blood pressure diastolic 60 mm Hg 08/31/2023 Weight-kg 81.1 kg 08/31/2023 Height 69 in 08/31/2023 Blood pressure systolic 92 mm Hg 08/31/2023 Weight 178.8 lbs 08/31/2023 BMI 26.4 kg/m2 08/31/2023 Encounters Encounter Location Date Provider Diagnosis [facility] [address] [place] [address] 10/07/2023 Brendon Webb Screen for colon cancer Z12.11 [facility] [address] [place] [address] 08/31/2023 Allison Botello Preprocedural examination Z01.818 and Screening for colon cancer Z12.11 [facility] [address] [place] [address] 05/25/2023 Brendon Webb [facility] [address] [place] [address] 07/28/2023 Allison [facility] [address] [place] [address] 10/19/2023 Brendon Webb Assessments Encounter Date Diagnosis (ICD Code) Assessment Notes Treat ment Notes Treatment Clinical Notes 08/31/2023 Screening for colon cancer (ICD-10 - Z12.11) 08/31/2023 Preprocedural examination (ICD-10 - Z01.818) The [...] after the colonoscopy. Refer back to PCP. 10/07/2023 Screen for colon cancer (ICD-10 - Z12.11) Proceed with average risk colonoscopy screening today. 08/31/2023 Other Colonoscopy: Be fore Your Procedure material was printed, Learning About Foods That Are Good Sources of Fiber material was printed Plan Of Treatment Pending Test Test Name Order Date Colonoscopy, Average Risk Screening-G012 1 08/31/2023 Insurance Providers Payer Name Payer Address Payer Phone Subscriber Number Group Number Insured Name Patient Relationship to Insured Coverage Start Date Coverage End Date [employer] [address] [place] [phone] [id number] Brenonn Melendez Self - patient is the insured Medical (General) History Medical History History ICD Code Asthma arthritis migraines Skin cancer Lewy body Dementia COPD BPH sleep apnea Spinal meningitis Surgical History Surgery Date(Month/Year) Right ankle ORIF Right testicular surgery Left knee arthroplasty 2020 Bilateral CEIOLI Bilateral inguinal hernia repair Skin cancer excision, face
[2024-03-01 15:27] LABS: Vitamin B12 620 pg/mL (232-1245)
== END 2024-03-11 23:59 | disposition home or self-care (01) ==
PROVIDERS: Specialist; PCP Family Medicine; Visit Provider Internal Medicine Hematology & Oncology
DX: D47.3 Essential (hemorrhagic) thrombocythemia (principal); Z79.82 Long term (current) use of aspirin; Z79.64 Long term (current) use of myelosuppressive agent; Z87.891 Personal history of nicotine dependence; G30.9 Alzheimer's disease, unspecified; F02.80 Dementia in other diseases classified elsewhere, unspecified severity, without behavioral disturbance, psychotic disturbance, mood disturbance, and anxiety; R26.9 Unspecified abnormalities of gait and mobility
CPT/HCPCS: 36415; 82607; 82746

== ENCOUNTER → 2024-03-14 10:00 | Outpatient (BNVA) | payer OTHER, SELFPAY | PROVIDERS: PCP Family Medicine; Visit Provider Podiatrist Foot & Ankle Surgery | DX: L60.3 Nail dystrophy (principal); I73.9 Peripheral vascular disease, unspecified | CPT/HCPCS: 11721 ==

== ENCOUNTER 2024-04-27 12:04 | Oncology outpatient (recurring) (ONCR) | payer OTHER, SELFPAY ==
[2024-04-27 12:23] LABS: Basophils % 0.1 %; Eosinophils # 0.1 10^3/uL (0.0-0.8); Eosinophils % 1.6 %; Hematocrit 44.2 % (37-53); Lymphocytes # 0.9 10^3/uL (0.8-4.8); Lymphocytes % 13.4 %; Mean Corpuscular HGB Conc 34.4 g/dL (30-55); Mean Corpuscular Hemoglobin 38.7 pg (27-33); Mean Corpuscular Volume 112.5 fl (82-101); Mean Platelet Volume 9.4 fL (7.4-10.4); Monocytes # 0.6 10^3/uL (0.2-0.9); Monocytes % 8.7 %; Neutrophils # 5.11 10^3/uL (1.8-7.7); Neutrophils % 74.2 %; Nucleated Red Blood Cells % 0 %; Platelet Count 437 10^3/cmm (157-399); Red Blood Count 3.93 10^6/uL (3.85-5.65); Red Cell Distribution Width 13.2 % (12.1-15.1); White Blood Count 6.89 10^3/uL (3.29-11.43)
[2024-04-27 12:43] LABS: Alanine Aminotransferase 13 U/L (0-41); Albumin Level 4.3 g/dL (3.5-5.2); Alkaline Phosphatase 156 U/L (40-130); Anion Gap 19.7 (5-19); Aspartate Amino Transferase 23 U/L (0-40); Blood Urea Nitrogen 21 mg/dL (8-23); Calcium 9.4 mg/dL (8.5-10.5); Carbon Dioxide 20 mmol/L (22-29); Chloride 100 mmol/L (98-107); Globulin 3.6 g/dL (1.3-4.6); Glucose 102 mg/dL (65-115); Osmolality Calculated 283 mOsm/kg (285-295); Potassium 4.7 mmol/L (3.5-5.1); Sodium 135 mmol/L (136-145); Total Bilirubin 0.6 mg/dL (0.15-1.2); Total Protein 7.9 g/dL (6.6-8.7)
== END 2024-05-12 23:59 | disposition home or self-care (01) ==
PROVIDERS: Nurse Practitioner Family; PCP Family Medicine; Visit Provider Internal Medicine
DX: D47.3 Essential (hemorrhagic) thrombocythemia (principal); G31.83 Neurocognitive disorder with Lewy bodies; F02.80 Dementia in other diseases classified elsewhere, unspecified severity, without behavioral disturbance, psychotic disturbance, mood disturbance, and anxiety; Z79.64 Long term (current) use of myelosuppressive agent; Z79.82 Long term (current) use of aspirin; Z87.891 Personal history of nicotine dependence
CPT/HCPCS: 80053; 85025; 99213

== ENCOUNTER → 2024-05-09 09:04 | Outpatient (BNVA) | payer OTHER, SELFPAY | PROVIDERS: PCP Family Medicine; Visit Provider Nurse Practitioner Family | DX: L40.0 Psoriasis vulgaris (principal); L21.8 Other seborrheic dermatitis; L81.4 Other melanin hyperpigmentation; L57.8 Other skin changes due to chronic exposure to nonionizing radiation; Z08 Encounter for follow-up examination after completed treatment for malignant neoplasm; Z85.828 Personal history of other malignant neoplasm of skin; D48.5 Neoplasm of uncertain behavior of skin; L57.0 Actinic keratosis | CPT/HCPCS: 11102; 17000; 99214 ==

== ENCOUNTER → 2024-06-05 07:34 | Outpatient (BNVA) | payer OTHER, SELFPAY | PROVIDERS: PCP Family Medicine; Visit Provider Podiatrist Foot & Ankle Surgery | DX: I73.9 Peripheral vascular disease, unspecified (principal); L60.3 Nail dystrophy | CPT/HCPCS: 11721 ==

== ENCOUNTER → 2024-06-27 08:41 | Outpatient (BNVA) | payer OTHER, SELFPAY | PROVIDERS: PCP Family Medicine; Visit Provider Dermatology | DX: C44.311 Basal cell carcinoma of skin of nose (principal); L82.1 Other seborrheic keratosis; D18.01 Hemangioma of skin and subcutaneous tissue; Z08 Encounter for follow-up examination after completed treatment for malignant neoplasm; Z85.828 Personal history of other malignant neoplasm of skin; L57.0 Actinic keratosis | CPT/HCPCS: 17000; 17282; 99214 ==

== ENCOUNTER 2024-08-03 09:07 | Oncology outpatient (recurring) (ONCR) | payer OTHER, SELFPAY ==
[2024-08-03 10:58] LABS: Basophils % 0.2 %; Eosinophils # 0.1 10^3/uL (0.0-0.8); Eosinophils % 1.3 %; Lymphocytes # 0.7 10^3/uL (0.8-4.8); Lymphocytes % 13.2 %; Mean Corpuscular HGB Conc 33.3 g/dL (30-55); Mean Corpuscular Hemoglobin 39.9 pg (27-33); Mean Corpuscular Volume 120.1 fl (82-101); Mean Platelet Volume 9.7 fL (7.4-10.4); Monocytes # 0.5 10^3/uL (0.2-0.9); Monocytes % 9.3 %; Neutrophils # 3.97 10^3/uL (1.8-7.7); Neutrophils % 74.1 %; Nucleated Red Blood Cells % 0 %; Platelet Count 365 10^3/cmm (157-399); Red Blood Count 3.33 10^6/uL (3.85-5.65); Red Cell Distribution Width 13.7 % (12.1-15.1); White Blood Count 5.36 10^3/uL (3.29-11.43)
[2024-08-03 11:13] LABS: Alanine Aminotransferase 10 U/L (0-41); Alkaline Phosphatase 123 U/L (40-130); Anion Gap 11.2 (5-19); Aspartate Amino Transferase 18 U/L (0-40); Blood Urea Nitrogen 18 mg/dL (8-23); Carbon Dioxide 26 mmol/L (22-29); Chloride 105 mmol/L (98-107); Creatinine Clr Calc Pharmacy 86.6889; Globulin 3.2 g/dL (1.3-4.6); Glucose 86 mg/dL (65-115); Lactate Dehydrogenase 232 U/L (135-225); Osmolality Calculated 287 mOsm/kg (285-295); Potassium 4.2 mmol/L (3.5-5.1); Sodium 138 mmol/L (136-145); Total Bilirubin 0.7 mg/dL (0.15-1.2); Total Protein 7.2 g/dL (6.6-8.7)
== END 2024-08-09 23:59 | disposition home or self-care (01) ==
LOC: ONCMED 09:08
PROVIDERS: PCP Family Medicine; Visit Provider Internal Medicine
DX: D47.3 Essential (hemorrhagic) thrombocythemia (principal); G31.83 Neurocognitive disorder with Lewy bodies; F02.80 Dementia in other diseases classified elsewhere, unspecified severity, without behavioral disturbance, psychotic disturbance, mood disturbance, and anxiety; Z79.899 Other long term (current) drug therapy
CPT/HCPCS: 36415; 80053; 83615; 85025; 99213

== ENCOUNTER → 2024-09-26 12:41 | Outpatient (BNVA) | payer OTHER, SELFPAY | PROVIDERS: PCP Family Medicine; Visit Provider Dermatology | DX: L40.0 Psoriasis vulgaris (principal); L82.1 Other seborrheic keratosis; L81.4 Other melanin hyperpigmentation; D18.01 Hemangioma of skin and subcutaneous tissue; Z08 Encounter for follow-up examination after completed treatment for malignant neoplasm; Z85.828 Personal history of other malignant neoplasm of skin; L82.0 Inflamed seborrheic keratosis; L29.89 Other pruritus; L53.8 Other specified erythematous conditions; D48.5 Neoplasm of uncertain behavior of skin; L57.0 Actinic keratosis | CPT/HCPCS: 11102; 17000; 17110; 99214 ==

== ENCOUNTER → 2024-10-09 07:43 | Outpatient (BNVA) | payer OTHER, SELFPAY | PROVIDERS: PCP Family Medicine; Visit Provider Podiatrist Foot & Ankle Surgery | DX: I73.9 Peripheral vascular disease, unspecified (principal); L60.3 Nail dystrophy | CPT/HCPCS: 11721 ==

== ENCOUNTER 2024-11-02 07:28 | Oncology outpatient (recurring) (ONCR) | payer OTHER, SELFPAY ==
[2024-11-02 08:04] LABS: Hematocrit 37.7 % (37-53); Hemoglobin 12.40 g/dL (11.27-16.99); Mean Corpuscular HGB Conc 32.9 g/dL (30-55); Mean Corpuscular Hemoglobin 39.2 pg (27-33); Mean Corpuscular Volume 119.3 fl (82-101); Nucleated Red Blood Cells % 0 %; Platelet Count 360 10^3/cmm (157-399); Red Blood Count 3.16 10^6/uL (3.85-5.65); White Blood Count 4.65 10^3/uL (3.29-11.43)
[2024-11-02 08:21] LABS: Alanine Aminotransferase 10 U/L (0-41); Albumin Level 3.7 g/dL (3.5-5.2); Alkaline Phosphatase 131 U/L (40-130); Anion Gap 12.3 (5-19); Aspartate Amino Transferase 17 U/L (0-40); Blood Urea Nitrogen 20 mg/dL (8-23); Calcium 8.7 mg/dL (8.5-10.5); Carbon Dioxide 27 mmol/L (22-29); Chloride 105 mmol/L (98-107); Globulin 3.2 g/dL (1.3-4.6); Glucose 93 mg/dL (65-115); Osmolality Calculated 292 mOsm/kg (285-295); Potassium 4.3 mmol/L (3.5-5.1); Sodium 140 mmol/L (136-145); Total Protein 6.9 g/dL (6.6-8.7)
== END 2024-11-09 23:59 | disposition home or self-care (01) ==
PROVIDERS: PCP Family Medicine; Visit Provider Internal Medicine
DX: D47.3 Essential (hemorrhagic) thrombocythemia (principal); Z79.899 Other long term (current) drug therapy; G31.83 Neurocognitive disorder with Lewy bodies; F02.80 Dementia in other diseases classified elsewhere, unspecified severity, without behavioral disturbance, psychotic disturbance, mood disturbance, and anxiety
CPT/HCPCS: 36415; 80053; 83615; 85025; 99214

== ENCOUNTER → 2025-01-04 09:25 | Outpatient (BNVA) | payer OTHER, SELFPAY | PROVIDERS: PCP Family Medicine; Visit Provider Dermatology | DX: L40.0 Psoriasis vulgaris (principal); D22.9 Melanocytic nevi, unspecified; L81.4 Other melanin hyperpigmentation; L57.8 Other skin changes due to chronic exposure to nonionizing radiation; Z08 Encounter for follow-up examination after completed treatment for malignant neoplasm; Z85.828 Personal history of other malignant neoplasm of skin; D48.5 Neoplasm of uncertain behavior of skin; L57.0 Actinic keratosis | CPT/HCPCS: 11102; 17000; 99214 ==

== ENCOUNTER → 2025-01-08 07:17 | Outpatient (BNVA) | payer OTHER, SELFPAY | PROVIDERS: PCP Family Medicine; Visit Provider Podiatrist Foot & Ankle Surgery | DX: I73.9 Peripheral vascular disease, unspecified (principal); L60.3 Nail dystrophy; L60.8 Other nail disorders | CPT/HCPCS: 11721 ==

== ENCOUNTER → 2025-01-24 13:13 | Outpatient (BNVA) | payer OTHER, SELFPAY | PROVIDERS: PCP Family Medicine; Visit Provider Dermatology | DX: C44.529 Squamous cell carcinoma of skin of other part of trunk (principal) | CPT/HCPCS: 11602; 12032 ==

== ENCOUNTER 2025-02-01 10:33 | Oncology outpatient (recurring) (ONCR) | payer OTHER, SELFPAY ==
[2025-02-01 10:46] LABS: Hematocrit 38.0 % (37-53); Hemoglobin 12.70 g/dL (11.27-16.99); Mean Corpuscular HGB Conc 33.4 g/dL (30-55); Mean Corpuscular Hemoglobin 39.7 pg (27-33); Mean Corpuscular Volume 118.8 fl (82-101); Nucleated Red Blood Cells % 0 %; Platelet Count 462 10^3/cmm (157-399); Red Blood Count 3.20 10^6/uL (3.85-5.65); White Blood Count 8.11 10^3/uL (3.29-11.43)
[2025-02-01 11:16] LABS: Alanine Aminotransferase 28 U/L (0-41); Albumin Level 3.9 g/dL (3.5-5.2); Alkaline Phosphatase 146 U/L (40-130); Anion Gap 14.2 (5-19); Aspartate Amino Transferase 29 U/L (0-40); Blood Urea Nitrogen 16 mg/dL (8-23); Calcium 9.1 mg/dL (8.5-10.5); Carbon Dioxide 26 mmol/L (22-29); Chloride 102 mmol/L (98-107); Creatinine Clr Calc Pharmacy 84.0684; Globulin 3.3 g/dL (1.3-4.6); Glucose 93 mg/dL (65-115); Osmolality Calculated 287 mOsm/kg (285-295); Potassium 4.2 mmol/L (3.5-5.1); Sodium 138 mmol/L (136-145); Total Protein 7.2 g/dL (6.6-8.7)
== END 2025-02-09 23:59 | disposition home or self-care (01) ==
PROVIDERS: Nurse Practitioner; PCP Family Medicine; Visit Provider Internal Medicine
DX: D47.3 Essential (hemorrhagic) thrombocythemia (principal); G31.83 Neurocognitive disorder with Lewy bodies; C44.92 Squamous cell carcinoma of skin, unspecified; Z87.891 Personal history of nicotine dependence
CPT/HCPCS: 36415; 80053; 83615; 85025; 99213

== ENCOUNTER → 2025-02-19 08:11 | Outpatient (BNVA) | payer OTHER, SELFPAY | PROVIDERS: PCP Family Medicine; Visit Provider Specialist | DX: G30.9 Alzheimer's disease, unspecified (principal); R26.9 Unspecified abnormalities of gait and mobility; F02.80 Dementia in other diseases classified elsewhere, unspecified severity, without behavioral disturbance, psychotic disturbance, mood disturbance, and anxiety | CPT/HCPCS: 36415; 82542; 83520; 96116; 99214 ==

== ENCOUNTER 2025-02-22 08:01 | Outpatient (CLI) | payer OTHER, SELFPAY | END 2025-02-22 08:02 | disposition home or self-care (01) | LOC: LAB 08:02 | PROVIDERS: PCP Family Medicine; Visit Provider Specialist | DX: G30.9 Alzheimer's disease, unspecified (principal); F02.80 Dementia in other diseases classified elsewhere, unspecified severity, without behavioral disturbance, psychotic disturbance, mood disturbance, and anxiety | CPT/HCPCS: 82233; 82234 ==

== ENCOUNTER → 2025-03-26 12:21 | Outpatient (BNVA) | payer OTHER, SELFPAY | PROVIDERS: PCP Family Medicine; Visit Provider Dermatology | DX: D23.5 Other benign neoplasm of skin of trunk (principal); L57.8 Other skin changes due to chronic exposure to nonionizing radiation; Z08 Encounter for follow-up examination after completed treatment for malignant neoplasm; Z85.828 Personal history of other malignant neoplasm of skin; D48.5 Neoplasm of uncertain behavior of skin; L57.0 Actinic keratosis | CPT/HCPCS: 11102; 17000; 99213 ==

== ENCOUNTER → 2025-04-09 06:53 | Outpatient (BNVA) | payer OTHER, SELFPAY | PROVIDERS: PCP Family Medicine; Visit Provider Podiatrist Foot & Ankle Surgery | DX: I73.9 Peripheral vascular disease, unspecified (principal); L60.3 Nail dystrophy; L60.8 Other nail disorders | CPT/HCPCS: 11721 ==